=== PATIENT | female | born 1955 | race American Indian/Alaskan Native ===

== ENCOUNTER 2019-03-24 10:03 | Emergency (ER) | payer MEDICARE ==
[2019-03-24 10:32] VITALS: BP 166/80
[2019-03-24] MEDS ORDERED: CLEOCIN 600 MG/50 mL 600 MG/50 ML BAG IV ONE (10:59)
[2019-03-24] MEDS ORDERED: TORADOL IV ONE (10:59)
[2019-03-24] MEDS ORDERED: XYLOCAINE 1%/ EPI 1:100,000 INFILTRATI NR (11:00)
--- NOTE | 2019-03-24 12:18 | Emergency Department Report ---
- General Chief complaint: Skin/Abscess/Foreign Body Stated complaint: R ARM BITE/PAIN Time Seen by Provider: 03/24/19 10:54 Source: patient Mode of arrival: Wheelchair Limitations: No Limitations - History of Present Illness Initial comments: Patient is a 64-year-old female with no smoking past medical history who is presenting with swelling and redness to the right medial elbow. Patient states that she believes she may have been bitten by something because she has developed swelling in this area. Patient states is been present for the past 3 days and progressively worsening. There was some mild drainage today. Patient has pain that is 6 out of 10 in severity and is aching and throbbing. Patient denies any fevers chills nausea vomiting diarrhea at this time. - Related Data Home Medications Medication Instructions Recorded Confirmed Last Taken Allopurinol 300 mg PO DAILY 10/12/18 10/12/18 1 Day Ago ~10/11/18 Aspirin EC [Aspirin Enteric Coated 81 mg PO DAILY 10/12/18 10/12/18 1 Day Ago TAB] ~10/11/18 Banophen 25 mg PO BID PRN 10/12/18 10/12/18 1 Day Ago ~10/11/18 Chlorthalidone 12.5 mg PO QDAY 10/12/18 10/12/18 1 Day Ago ~10/11/18 Colchicine 0.6 mg PO BID 10/12/18 10/12/18 1 Day Ago ~10/11/18 Gabapentin [Neurontin] 300 mg PO Q8HR 10/12/18 10/12/18 1 Day Ago ~10/11/18 Lisinopril [Zestril TAB] 40 mg PO DAILY 10/12/18 1 Day Ago ~10/11/18 sulfaSALAzine [Azulfidine] 500 mg PO BID 10/12/18 10/12/18 1 Day Ago ~10/11/18 Previous Rx's Medication Instructions Recorded Last Taken Type hydroCHLOROthiazide [HCTZ] 12.5 mg PO QDAY #30 capsule 03/24/16 04/21/16 Rx traMADol [Ultram 50 MG tab] 50 mg PO Q6HR PRN #20 tablet 04/04/16 04/21/16 Rx Polyethylene Glycol 3350 [Miralax 17 gm PO QDAY #30 packet 04/21/16 Unknown Rx 3350] Clindamycin [Clindamycin CAP] 300 mg PO Q8H #21 cap 03/24/19 Unknown Rx HYDROcodone/APAP 5-325 [[place] 1 each PO Q6HR PRN #14 tablet 03/24/19 Unknown Rx 5/325] Ketorolac [Toradol] 10 mg PO Q6H PRN #12 tablet 03/24/19 Unknown Rx Allergies Allergy/AdvReac Type Severity Reaction Status Date / Time Penicillins Allergy Swelling Verified 01/28/16 18:41 Abscess Boil HPI - HPI Chief Complaint: Skin/Abscess/Foreign Body Stated Complaint: R ARM BITE/PAIN Time Seen by Provider: 03/24/19 10:54 Home Medications: Home Medications Medication Instructions Recorded Confirmed Last Taken Allopurinol 300 mg PO DAILY 10/12/18 10/12/18 1 Day Ago ~10/11/18 Aspirin EC [Aspirin Enteric Coated 81 mg PO DAILY 10/12/18 10/12/18 1 Day Ago TAB] ~10/11/18 Banophen 25 mg PO BID PRN 10/12/18 10/12/18 1 Day Ago ~10/11/18 Chlorthalidone 12.5 mg PO QDAY 10/12/18 10/12/18 1 Day Ago ~10/11/18 Colchicine 0.6 mg PO BID 10/12/18 10/12/18 1 Day Ago ~10/11/18 Gabapentin [Neurontin] 300 mg PO Q8HR 10/12/18 10/12/18 1 Day Ago ~10/11/18 Lisinopril [Zestril TAB] 40 mg PO DAILY 10/12/18 1 Day Ago ~10/11/18 sulfaSALAzine [Azulfidine] 500 mg PO BID 10/12/18 10/12/18 1 Day Ago ~10/11/18 Previous Rx's Medication Instructions Recorded Last Taken Type hydroCHLOROthiazide [HCTZ] 12.5 mg PO QDAY #30 capsule 03/24/16 04/21/16 Rx traMADol [Ultram 50 MG tab] 50 mg PO Q6HR PRN #20 tablet 04/04/16 04/21/16 Rx Polyethylene Glycol 3350 [Miralax 17 gm PO QDAY #30 packet 04/21/16 Unknown Rx 3350] Clindamycin [Clindamycin CAP] 300 mg PO Q8H #21 cap 03/24/19 Unknown Rx HYDROcodone/APAP 5-325 [[place] 1 each PO Q6HR PRN #14 tablet 03/24/19 Unknown Rx 5/325] Ketorolac [Toradol] 10 mg PO Q6H PRN #12 tablet 03/24/19 Unknown Rx Allergies/Adverse Reactions: Allergies Allergy/AdvReac Type Severity Reaction Status Date / Time Penicillins Allergy Swelling Verified 01/28/16 18:41 ED Review of Systems ROS: Stated complaint: R ARM BITE/PAIN Other details as noted in HPI Comment: All other systems reviewed and negative ED Past Medical Hx - Past Medical History Previous Medical History?: Yes Hx Hypertension: Yes Hx CVA: Yes (no residual) Hx Heart Attack/AMI: No Hx Congestive Heart Failure: No Hx Diabetes: No Hx Deep Vein Thrombosis: No Hx Pulmonary Embolism: No Hx Arthritis: Yes (RA) Hx Seizures: No Hx Asthma: Yes Hx COPD: No Hx Tuberculosis: No Hx Dementia: No Hx HIV: No Additional medical history: staph right foot on and off; diverticulitis - Surgical History Past Surgical History?: Yes Hx Coronary Stent: No Hx Open Heart Surgery: No Hx Pacemaker: No Hx Internal Defibrillator: No Hx Cholecystectomy: Yes Hx Appendectomy: No Hx Breast Surgery: No Additional Surgical History: sigmoid colon resection with colostomy - Social History Smoking Status: Former Smoker Substance Use Type: None - Medications Home Medications: Home Medications Medication Instructions Recorded Confirmed Last Taken Type hydroCHLOROthiazide [HCTZ] 12.5 mg PO QDAY #30 capsule 03/24/16 04/21/16 04/21/16 Rx traMADol [Ultram 50 MG tab] 50 mg PO Q6HR PRN #20 tablet 04/04/16 04/21/16 04/21/16 Rx Polyethylene Glycol 3350 [Miralax 17 gm PO QDAY #30 packet 04/21/16 Unknown Rx 3350] Allopurinol 300 mg PO DAILY 10/12/18 10/12/18 1 Day Ago History ~10/11/18 Aspirin EC [Aspirin Enteric Coated 81 mg PO DAILY 10/12/18 10/12/18 1 Day Ago History TAB] ~10/11/18 Banophen 25 mg PO BID PRN 10/12/18 10/12/18 1 Day Ago History ~10/11/18 Chlorthalidone 12.5 mg PO QDAY 10/12/18 10/12/18 1 Day Ago History ~10/11/18 Colchicine 0.6 mg PO BID 10/12/18 10/12/18 1 Day Ago History ~10/11/18 Gabapentin [Neurontin] 300 mg PO Q8HR 10/12/18 10/12/18 1 Day Ago History ~10/11/18 Lisinopril [Zestril TAB] 40 mg PO DAILY 10/12/18 1 Day Ago History ~10/11/18 sulfaSALAzine [Azulfidine] 500 mg PO BID 10/12/18 10/12/18 1 Day Ago History ~10/11/18 Clindamycin [Clindamycin CAP] 300 mg PO Q8H #21 cap 03/24/19 Unknown Rx HYDROcodone/APAP 5-325 [[place] 1 each PO Q6HR PRN #14 tablet 03/24/19 Unknown Rx 5/325] Ketorolac [Toradol] 10 mg PO Q6H PRN #12 tablet 03/24/19 Unknown Rx ED Physical Exam - General Limitations: No Limitations General appearance: alert, in no apparent distress - Head Head exam: Present: atraumatic, normocephalic - Eye Eye exam: Present: normal appearance - ENT ENT exam: Present: mucous membranes moist - Neck Neck exam: Present: normal inspection - Respiratory Respiratory exam: Present: normal lung sounds bilaterally. Absent: respiratory distress, wheezes, rales, rhonchi - Cardiovascular Cardiovascular Exam: Present: regular rate, normal rhythm. Absent: systolic murmur, diastolic murmur, rubs, gallop - GI/Abdominal GI/Abdominal exam: Present: soft, normal bowel sounds. Absent: distended, tenderness, guarding, rebound - Extremities Exam Extremities exam: Present: normal inspection - Back Exam Back exam: Present: normal inspection - Neurological Exam Neurological exam: Present: alert, oriented X3 - Psychiatric Psychiatric exam: Present: normal affect, normal mood - Skin Skin exam: Present: warm, dry, intact, normal color. Absent: rash - Expanded Skin Exam Expanded Type of lesion: Present: abscess 1 - At the distal medial humerus region just proximal to the elbow there is a softball sized area of induration and warmth with central fluctuance. There is very minimal drainage at this time. ED Course Vital Signs 03/24/19 10:28 Temperature 98.2 F Pulse Rate 77 Respiratory 18 Rate Blood Pressure 166/80 O2 Sat by Pulse 99 Oximetry - I & D Right Medial Elbow Type of Procedure: Complex Blade Size: 11 I & D Procedure: betadine prep, sterile drapes applied, sterile dressing applied, gauze wick placed Progress: Lidocaine with epinephrine was used to numb the area. Good anesthesia was achieved. 11 blade scalpel was used to make a cut. Cut was approximately 1 cm. There was moderate amount of purulent drainage expressed. The wound was probed with hemostats to break up loculations. The area was irrigated with normal saline the patient's abscess was packed. Patient tolerated procedure well. Critical care attestation.: If time is entered above; I have spent that time in minutes in the direct care of this critically ill patient, excluding procedure time. ED Disposition Clinical Impression: Abscess Cellulitis Qualifiers: Site of cellulitis: extremity Site of cellulitis of extremity: upper extremity Laterality: right Qualified Code(s): L03.113 - Cellulitis of right upper limb Disposition: -01 TO HOME OR SELFCARE Is pt being admited?: No Does the pt Need Aspirin: No Condition: Stable Instructions: Abscess (ED), Abscess Incision and Drainage (ED) Referrals: NITA TANG MD [Primary Care Provider] - 3-5 Days Time of Disposition: 12:18
== END 2019-03-24 12:45 | disposition home or self-care (01) ==
LOC: ED 10:03
DX: L02.413 Cutaneous abscess of right upper limb (principal); L03.113 Cellulitis of right upper limb; I10 Essential (primary) hypertension; M19.90 Unspecified osteoarthritis, unspecified site; J45.909 Unspecified asthma, uncomplicated; Z86.73 Personal history of transient ischemic attack (TIA), and cerebral infarction without residual deficits; Z90.49 Acquired absence of other specified parts of digestive tract; Z87.891 Personal history of nicotine dependence; Z88.0 Allergy status to penicillin; Z79.82 Long term (current) use of aspirin
CPT/HCPCS: 10061; 96365; 96375; 99282; J1885

== ENCOUNTER 2019-06-26 16:56 | Emergency (ER) | payer MEDICARE ==
[2019-06-26 17:06] VITALS: BP 178/87
[2019-06-26 17:23] LABS: Basophils # (Auto) 0.1 K/mm3 (0.0-0.1); Basophils % (Auto) 0.8 % (0.0-1.8); Eosinophils # (Auto) 0.1 K/mm3 (0.0-0.4); Eosinophils % (Auto) 0.7 % (0.0-4.3); Hematocrit 45.1 % (30.3-42.9); Hemoglobin 15.4 gm/dl (10.1-14.3); Lymphocytes # (Auto) 1.8 K/mm3 (1.2-5.4); Lymphocytes % (Auto) 19.2 % (13.4-35.0); Mean Corpuscular HGB Conc 34 % (30-34); Mean Corpuscular Volume 93 fl (79-97); Monocytes # (Auto) 0.5 K/mm3 (0.0-0.8); Monocytes % (Auto) 5.4 % (0.0-7.3); Platelet Count 179 K/mm3 (140-440); Red Blood Count 4.85 M/mm3 (3.65-5.03); Red Cell Distribution Width 14.5 % (13.2-15.2)
[2019-06-26 17:37] LABS: Alanine Aminotransferase 15 units/L (7-56); Albumin 4.3 g/dL (3.9-5); BUN/Creatinine Ratio 20; Blood Urea Nitrogen 12 mg/dL (7-17); Calcium 9.6 mg/dL (8.4-10.2); Hemolysis Index 6
[2019-06-26 17:40] LABS: Bilirubin,Urine NEG (Negative); Blood,Urine LG (Negative); Color,Urine Red (Yellow); Urobilinogen,Urine < 2.0 mg/dL (<2.0)
[2019-06-26 17:42] LABS: Protein,Urine >500 mg/dL (Negative); RBC,Urine > 182.0 /HPF (0.0-6.0); WBC,Urine > 182.0 /HPF (0.0-6.0)
[2019-06-26] MEDS ORDERED: ROCEPHIN/NS 1 GM/50 ML 1 GM/50 ML BAG IV ONE (19:22)
[2019-06-26] MEDS ORDERED: TORADOL IV ONE (19:22)
[2019-06-26] MEDS ORDERED: NACL 0.9% 1000 ML 1,000 ML IV ONE (19:22)
[2019-06-26] MEDS ORDERED: ZOFRAN IV ONE (19:22)
--- NOTE | 2019-06-26 20:24 | Cat Scan Report ---
CT ABDOMEN AND PELVIS WITHOUT CONTRAST INDICATION: UTI. Gross hematuria with bilateral flank pain. COMPARISON: CT of the abdomen and pelvis with contrast from 03/31/2016. TECHNIQUE: Axial, coronal and sagittal CT imaging of the abdomen and pelvis was performed without co ntrast. Lack of intravenous contrast limits evaluation of the vascular and solid organs. All CT sca ns at this location are performed using CT dose reduction for ALARA by means of automated exposure co ntrol. FINDINGS: LOWER CHEST: Mild dependent atelectasis is seen bilaterally. No additional significant abnormality. LIVER: No significant abnormality. BILIARY: Prior cholecystectomy. No significant abnormality. PANCREAS: No significant abnormality. SPLEEN: No significant abnormality. ADRENALS: No significant abnormality. KIDNEYS AND URETERS: No significant abnormality. GI TRACT: No significant abnormality of the stomach, small bowel or colon. Unremarkable appendix. Figueroa rgical changes are seen along the sigmoid colon. PERITONEUM: No free fluid. No free air. No fluid collection. LYMPH NODES: No significant adenopathy. VASCULATURE: The aorta is normal in caliber. There is mild bilateral iliac atherosclerosis. URINARY BLADDER: No significant abnormality. REPRODUCTIVE ORGANS: The uterus is larger than expected for a patient of this age and likely contains multiple fibroids. ADDITIONAL FINDINGS: Rectus diastasis is seen with a large midline ventral hernia containing unremark able appearing small bowel and colonic loops. Additional smaller ventral hernias are seen containing fat. No associated inflammation is identified. SKELETAL SYSTEM: No acute abnormality. There are degenerative changes of the spine and pelvis. IMPRESSION: 1. No acute abnormality of the abdomen or pelvis. 2. Additional findings as above. Signer Name: Cali Swift MD Signed: 06/26/2019 8:20 PM Workstation Name: [id number]
--- NOTE | 2019-06-26 21:25 | Emergency Department Report ---
ED Abdominal Pain HPI - General Chief Complaint: Abdominal Pain Stated Complaint: BURNING ON URINATION/ABD PAIN Time Seen by Provider: 06/26/19 19:12 Source: patient Mode of arrival: Wheelchair Limitations: Physical Limitation - History of Present Illness Initial Comments: Patient 64-year-old -[place] female who presents for lower abdominal pain 4 days exacerbated by 40 there is no hematuria denies history of renal stones does endorse history of recurrent UTI there is no fevers no chills no nausea vomiting pain is 6/10 cramping relieved by nothing. MD Complaint: abdominal pain Onset/Timin -: days(s) Location: suprapubic Radiation: suprapubic Migration to: suprapubic Severity: moderate Severity scale (0 -10): 8 Quality: cramping, aching Consistency: constant Improves With: nothing Worsens With: other (voiding ) Associated Symptoms: dysuria. denies: nausea, vomiting, diarrhea, chills, hematuria - Related Data Home Medications Medication Instructions Recorded Confirmed Last Taken Allopurinol 300 mg PO DAILY 10/12/18 10/12/18 1 Day Ago ~10/11/18 Aspirin EC [Halfprin EC] 81 mg PO DAILY 10/12/18 10/12/18 1 Day Ago ~10/11/18 Banophen 25 mg PO BID PRN 10/12/18 10/12/18 1 Day Ago ~10/11/18 Chlorthalidone 12.5 mg PO QDAY 10/12/18 10/12/18 1 Day Ago ~10/11/18 Colchicine 0.6 mg PO BID 10/12/18 10/12/18 1 Day Ago ~10/11/18 Gabapentin [Neurontin] 300 mg PO Q8HR 10/12/18 10/12/18 1 Day Ago ~10/11/18 Lisinopril [Zestril TAB] 40 mg PO DAILY 10/12/18 1 Day Ago ~10/11/18 sulfaSALAzine [Azulfidine] 500 mg PO BID 10/12/18 10/12/18 1 Day Ago ~10/11/18 Previous Rx's Medication Instructions Recorded Last Taken Type hydroCHLOROthiazide [HCTZ] 12.5 mg PO QDAY #30 capsule 03/24/16 04/21/16 Rx traMADol [Ultram 50 MG tab] 50 mg PO Q6HR PRN #20 tablet 04/04/16 04/21/16 Rx Polyethylene Glycol 3350 [Miralax 17 gm PO QDAY #30 packet 04/21/16 Unknown Rx 3350] Clindamycin [Clindamycin CAP] 300 mg PO Q8H #21 cap 03/24/19 Unknown Rx HYDROcodone/APAP 5-325 [[place] 1 each PO Q6HR PRN #14 tablet 03/24/19 Unknown Rx 5/325] Ketorolac [Toradol] 10 mg PO Q6H PRN #12 tablet 03/24/19 Unknown Rx Acetaminophen [Acetaminophen TAB] 1,000 mg PO Q6HR PRN #30 tablet 06/26/19 Un known Rx Fluconazole [Diflucan TAB] 150 mg PO ONCE #1 tablet 06/26/19 Unknown Rx Nitrofurantoin [place]/M-Cryst 100 mg PO BID 7 Days #14 capsule 06/26/19 Unknown Rx [Macrobid CAP] Allergies Allergy/AdvReac Type Severity Reaction Status Date / Time Penicillins Allergy Swelling Verified 06/26/19 16:58 ED Review of Systems ROS: Stated complaint: BURNING ON URINATION/ABD PAIN Other details as noted in HPI Constitutional: denies: chills, fever Eyes: denies: eye pain, eye discharge, vision change ENT: denies: ear pain, throat pain Respiratory: denies: cough, shortness of breath, wheezing Cardiovascular: as per HPI Endocrine: no symptoms reported Gastrointestinal: abdominal pain. denies: nausea, vomiting, diarrhea, constipation Genitourinary: urgency, dysuria, frequency. denies: hematuria, discharge Musculoskeletal: denies: back pain, joint swelling, arthralgia Skin: denies: rash, lesions Neurological: denies: headache, weakness, paresthesias Psychiatric: denies: anxiety, depression Hematological/Lymphatic: denies: easy bleeding, easy bruising ED Past Medical Hx - Past Medical History Hx Hypertension: Yes Hx CVA: Yes (no residual) Hx Heart Attack/AMI: No Hx Congestive Heart Failure: No Hx Diabetes: No Hx Deep Vein Thrombosis: No Hx Pulmonary Embolism: No Hx Arthritis: Yes (RA) Hx Seizures: No Hx Asthma: Yes Hx COPD: No Hx Tuberculosis: No Hx Dementia: No Hx HIV: No Additional medical history: staph right foot on and off; diverticulitis - Surgical History Hx Coronary Stent: No Hx Open Heart Surgery: No Hx Pacemaker: No Hx Internal Defibrillator: No Hx Cholecystectomy: Yes Hx Appendectomy: No Hx Breast Surgery: No Additional Surgical History: sigmoid colon resection with colostomy - Social History Smoking Status: Never Smoker Substance Use Type: None - Medications Home Medications: Home Medications Medication Instructions Recorded Confirmed Last Taken Type hydroCHLOROthiazide [HCTZ] 12.5 mg PO QDAY #30 capsule 03/24/16 04/21/16 04/21/16 Rx traMADol [Ultram 50 MG tab] 50 mg PO Q6HR PRN #20 tablet 04/04/16 04/21/16 0 04/21/16 Rx Polyethylene Glycol 3350 [Miralax 17 gm PO QDAY #30 packet 04/21/16 Unknown Rx 3350] Allopurinol 300 mg PO DAILY 10/12/18 10/12/18 1 Day Ago History ~10/11/18 Aspirin EC [Halfprin EC] 81 mg PO DAILY 10/12/18 10/12/18 1 Day Ago History ~10/11/18 Banophen 25 mg PO BID PRN 10/12/18 10/12/18 1 Day Ago History ~10/11/18 Chlorthalidone 12.5 mg PO QDAY 10/12/18 10/12/18 1 Day Ago History ~10/11/18 Colchicine 0.6 mg PO BID 10/12/18 10/12/18 1 Day Ago History ~10/11/18 Gabapentin [Neurontin] 300 mg PO Q8HR 10/12/18 10/12/18 1 Day Ago History ~10/11/18 Lisinopril [Zestril TAB] 40 mg PO DAILY 10/12/18 1 Day Ago History ~10/11/18 sulfaSALAzine [Azulfidine] 500 mg PO BID 10/12/18 10/12/18 1 Day Ago History ~10/11/18 Clindamycin [Clindamycin CAP] 300 mg PO Q8H #21 cap 03/24/19 Unknown Rx HYDROcodone/APAP 5-325 [[place] 1 each PO Q6HR PRN #14 tablet 03/24/19 Unknown Rx 5/325] Ketorolac [Toradol] 10 mg PO Q6H PRN #12 tablet 03/24/19 Unknown Rx Acetaminophen [Acetaminophen TAB] 1,000 mg PO Q6HR PRN #30 tablet 06/26/19 Unknown Rx Fluconazole [Diflucan TAB] 150 mg PO ONCE #1 tablet 06/26/19 Unknown Rx Nitrofurantoin [place]/M-Cryst 100 mg PO BID 7 Days #14 capsule 06/26/19 Unknown Rx [Macrobid CAP] ED Physical Exam - General Limitations: Physical Limitation General appearance: alert, in no apparent distress - Head Head exam: Present: atraumatic, normocephalic - Eye Eye exam: Present: normal appearance, PERRL, EOMI Pupils: Present: normal accommodation - ENT ENT exam: Present: mucous membranes moist - Neck Neck exam: Present: normal inspection, full ROM, lymphadenopathy - Respiratory Respiratory exam: Present: normal lung sounds bilaterally. Absent: respiratory distress, wheezes, stridor, chest wall tenderness - Cardiovascular Cardiovascular Exam: Present: regular rate, normal rhythm, normal heart sounds. Absent: systolic murmur, diastolic murmur, rubs, gallop - GI/Abdominal GI/Abdominal exam: Present: soft, normal bowel sounds. Absent: distended, tenderness, bruit, hernia - Rectal Rectal exam: Present: deferred - Extremities Exam Extremities exam: Present: normal inspection, full ROM, normal capillary refill. Absent: tenderness - Back Exam Back exam: Present: normal inspection, full ROM. Absent: tenderness, CVA tenderness (R), CVA tenderness (L), muscle spasm, paraspinal tenderness, vertebral tenderness, rash noted - Neurological Exam Neurological exam: Present: alert, oriented X3, CN II-XII intact, normal gait, reflexes normal. Absent: motor sensory deficit - Psychiatric Psychiatric exam: Present: normal affect, normal mood - Skin Skin exam: Present: warm, dry, intact, normal color. Absent: rash ED Course Vital Signs 06/26/19 17:04 Temperature 98.4 F Pulse Rate 89 Respiratory 16 Rate Blood Pressure 178/87 [Left] O2 Sat by Pulse 96 Oximetry ED Medical Decision Making - Lab Data Result diagrams: 06/26/19 17:10 06/26/19 17:10 Lab Results 06/26/19 06/26/19 06/26/19 Range/Units 17:10 17:10 17:20 WBC 9.4 (4.5-11.0) K/mm3 RBC 4.85 (3.65-5.03) M/mm3 Hgb 15.4 H (10.1-14.3) gm/dl Hct 45.1 H (30.3-42.9) % MCV 93 (79-97) fl MCH 32 (28-32) pg MCHC 34 (30-34) % RDW 14.5 (13.2-15.2) % Plt Count 179 (140-440) K/mm3 Lymph % (Auto) 19.2 (13.4-35.0) % [place] % (Auto) 5.4 (0.0-7.3) % Eos % (Auto) 0.7 (0.0-4.3) % Baso % (Auto) 0.8 (0.0-1.8) % Lymph # 1.8 (1.2-5.4) K/mm3 [place] # 0.5 (0.0-0.8) K/mm3 Eos # 0.1 (0.0-0.4) K/mm3 Baso # 0.1 (0.0-0.1) K/mm3 Seg Neutrophils % 73.9 H (40.0-70.0) % Seg Neutrophils # 7.0 (1.8-7.7) K/mm3 Sodium 145 (137-145) mmol/L Potassium 3.7 (3.6-5.0) mmol/L Chloride 101.5 (98-107) mmol/L Carbon Dioxide 30 (22-30) mmol/L Anion Gap 17 mmol/L BUN 12 (7-17) mg/dL Creatinine 0.6 L (0.7-1.2) mg/dL Estimated GFR > 60 ml/min BUN/Creatinine Ratio 20 % Glucose 98 (65-100) mg/dL Calcium 9.6 (8.4-10.2) mg/dL Total Bilirubin 0.40 (0.1-1.2) mg/dL AST 15 (5-40) units/L ALT 15 (7-56) units/L Alkaline Phosphatase 53 (35-129) units/L Total Protein 7.9 (6.3-8.2) g/dL Albumin 4.3 (3.9-5) g/dL Albumin/Globulin Ratio 1.2 % Urine Color Red (Yellow) Urine Turbidity Cloudy (Clear) Urine pH 6.0 (5.0-7.0) Ur Specific [place] 1.014 (1.003-1.030) Urine Protein >500 (Negative) mg/dL Urine Glucose (UA) Neg (Negative) mg/dL Urine Ketones Neg (Negative) mg/dL Urine Blood Lg (Negative) Urine Nitrite Neg (Negative) Urine Bilirubin Neg (Negative) Urine Urobilinogen < 2.0 (<2.0) mg/dL Ur Leukocyte Esterase Mod (Negative) Urine WBC (Auto) > 182.0 H (0.0-6.0) /HPF Urine RBC (Auto) > 182.0 (0.0-6.0) /HPF Urine WBC Clumps 3+ /HPF Urine Yeast (Budding) 3+ /HPF - Radiology Data Radiology results: report reviewed, image reviewed Ordering Physician: PEPE EARL NP Date of Service: 06/26/19 Procedure(s): CT abdomen pelvis wo con Accession Number(s): [id number] cc: PEPE EARL NP CT ABDOMEN AND PELVIS WITHOUT CONTRAST INDICATION: UTI. Gross hematuria with bilateral flank pain. COMPARISON: CT of the abdomen and pelvis with contrast from 03/31/2016. TECHNIQUE: Axial, coronal and sagittal CT imaging of the abdomen and pelvis was performed without contrast. Lack of intravenous contrast limits evaluation of the vascular and solid organs. All CT scans at this location are performed using CT dose reduction for ALARA by means of automated exposure control. FINDINGS: LOWER CHEST: Mild dependent atelectasis is seen bilaterally. No additional significant abnormality. LIVER: No significant abnormality. BILIARY: Prior cholecystectomy. No significant abnormality. PANCREAS: No significant abnormality. SPLEEN: No significant abnormality. ADRENALS: No significant abnormality. KIDNEYS AND URETERS: No significant abnormality. GI TRACT: No significant abnormality of the stomach, small bowel or colon. Unremarkable appendix. Surgical changes are seen along the sigmoid colon. PERITONEUM: No free fluid. No free air. No fluid collection. LYMPH NODES: No significant adenopathy. VASCULATURE: The aorta is normal in caliber. There is mild bilateral iliac atherosclerosis. URINARY BLADDER: No significant abnormality. REPRODUCTIVE ORGANS: The uterus is larger than expected for a patient of this age and likely contains multiple fibroids. ADDITIONAL FINDINGS: Rectus diastasis is seen with a large midline ventral hernia containing unremarkable appearing small bowel and colonic loops. Additional smaller ventral hernias are seen containing fat. No associated inflammation is identified. SKELETAL SYSTEM: No acute abnormality. There are degenerative changes of the spine and pelvis. IMPRESSION: 1. No acute abnormality of the abdomen or pelvis. 2. Additional findings as above. Signer Name: Cali Swift MD Signed: 06/26/2019 8:20 PM Workstation Name: [id number] Transcribed By: [place] Dictated By: Cali Swift MD Electronically Authenticated By: Cali Swift MD Signed Date/Time: 06/26/192019 DD/ 13 TD/TT: - Medical Decision Making CT Abd Pelvis, Fibroids, Ventral Hernia, Dx UTI, symptoms improved with medications given in ed plan follow up pcp in 2-3 days dc'd to home with rx for macrobid tylenol, conintue to hydrate as directed, return to ed if symptoms worsen. Critical care attestation.: If time is entered above; I have spent that time in minutes in the direct care o f this critically ill patient, excluding procedure time. ED Disposition Clinical Impression: UTI (urinary tract infection) Qualifiers: Urinary tract infection type: acute cystitis Hematuria presence: without hematuria Qualified Code(s): N30.00 - Acute cystitis without hematuria Disposition: DC-01 TO HOME OR SELFCARE Is pt being admited?: No Does the pt Need Aspirin: No Condition: Stable Instructions: Abdominal Pain (ED), Dysuria (ED), Urinary Tract Infection in Women (ED), Uterine Fibroids (ED), Ventral Hernia (ED) Prescriptions: Acetaminophen [Acetaminophen TAB] 1,000 mg PO Q6HR PRN #30 tablet PRN Reason: pain Fluconazole [Diflucan TAB] 150 mg PO ONCE #1 tablet Nitrofurantoin [place]/M-Cryst [Macrobid CAP] 100 mg PO BID 7 Days #14 capsule Referrals: NITA TANG MD [Referring] - 3-5 Days Forms: Work/School Release Form(ED) Time of Disposition: 21:34
== END 2019-06-26 22:10 | disposition home or self-care (01) ==
LOC: ED 16:56
DX: N39.0 Urinary tract infection, site not specified (principal); I10 Essential (primary) hypertension; M19.90 Unspecified osteoarthritis, unspecified site; J45.909 Unspecified asthma, uncomplicated; Z86.73 Personal history of transient ischemic attack (TIA), and cerebral infarction without residual deficits; Z90.49 Acquired absence of other specified parts of digestive tract; Z79.899 Other long term (current) drug therapy; Z79.82 Long term (current) use of aspirin; Z88.0 Allergy status to penicillin
CPT/HCPCS: 36415; 74176; 80053; 81001; 85025; 96365; 96375; 99284; J0696; J1885; J2405; J7030

== ENCOUNTER 2019-08-12 10:13 | Emergency (ER) | payer MEDICARE ==
[2019-08-12] MEDS ORDERED: SODIUM CHLORIDE 0.9% 500 ML 500 ML IV ONE (10:36)
[2019-08-12] MEDS ORDERED: ONDANSETRON 4 MG/2 ML INJ IV ONE (10:36)
[2019-08-12] MEDS ORDERED: MORPHINE 4 MG/1 ML INJ IV ONE (10:36)
--- NOTE | 2019-08-12 10:40 | Emergency Department Report ---
ED Abdominal Pain HPI - General Chief Complaint: Abdominal Pain Stated Complaint: STOMACH PAIN Time Seen by Provider: 08/12/19 10:36 Source: patient Mode of arrival: Ambulatory Limitations: No Limitations - History of Present Illness Initial Comments: Mrs. Rodrigues is a very pleasant 64-year-old female with history of rheumatoid arthritis, diverticulitis status post colon resection in ostomy reversal, severe obesity, hypertension who presents with 5 days of abdominal pain and bloating. Gradual onset of pain. 5 out of 10 cramping nondescript pain. She's had intact appetite. Denies fever. Denies vomiting. Denies diarrhea. Last bowel movement occurred on yesterday. Additional surgeries intra-abdominal surgeries include cholecystectomy PCP is Dr. Tj Nath MD Complaint: abdominal pain -: Gradual, days(s) (5) Location: diffuse Radiation: none Severity: moderate Severity scale (0 -10): 5 Quality: cramping, dull Consistency: constant Improves With: nothing Worsens With: nothing Associated Symptoms: denies other symptoms - Related Data Home Medications Medication Instructions Recorded Confirmed Last Taken Allopurinol 300 mg PO DAILY 10/12/18 10/12/18 1 Day Ago ~10/11/18 Aspirin EC [Halfprin EC] 81 mg PO DAILY 10/12/18 10/12/18 1 Day Ago ~10/11/18 Banophen 25 mg PO BID PRN 10/12/18 10/12/18 1 Day Ago ~10/11/18 Chlorthalidone 12.5 mg PO QDAY 10/12/18 10/12/18 1 Day Ago ~10/11/18 Colchicine 0.6 mg PO BID 10/12/18 10/12/18 1 Day Ago ~10/11/18 Gabapentin [Neurontin] 300 mg PO Q8HR 10/12/18 10/12/18 1 Day Ago ~10/11/18 Lisinopril [Zestril TAB] 40 mg PO DAILY 10/12/18 1 Day Ago ~10/11/18 sulfaSALAzine [Azulfidine] 500 mg PO BID 10/12/18 10/12/18 1 Day Ago ~10/11/18 Previous Rx's Medication Instructions Recorded Last Taken Type hydroCHLOROthiazide [HCTZ] 12.5 mg PO QDAY #30 capsule 03/24/16 04/21/16 Rx traMADol [Ultram 50 MG tab] 50 mg PO Q6HR PRN #20 tablet 04/04/16 04/21/16 Rx Polyethylene Glycol 3350 [Miralax 17 gm PO QDAY #30 packet 04/21/16 Unknown Rx 3350] Clindamycin [Clindamycin CAP] 300 mg PO Q8H #21 cap 03/24/19 Unknown Rx HYDROcodone/APAP 5-325 [[place] 1 each PO Q6HR PRN #14 tablet 03/24/19 Unknown Rx 5/325] Ketorolac [Toradol] 10 mg PO Q6H PRN #12 tablet 03/24/19 Unknown Rx Acetaminophen [Acetaminophen TAB] 1,000 mg PO Q6HR PRN #30 tablet 06/26/19 Unknown Rx Fluconazole [Diflucan TAB] 150 mg PO ONCE #1 tablet 06/26/19 Unknown Rx Nitrofurantoin [place]/M-Cryst 100 mg PO BID 7 Days #14 capsule 06/26/19 Unknown Rx [Macrobid CAP] Allergies Allergy/AdvReac Type Severity Reaction Status Date / Time Penicillins Allergy Swelling Verified 08/12/19 10:19 ED Review of Systems ROS: Stated complaint: STOMACH PAIN Other details as noted in HPI Comment: All other systems reviewed and negative Constitutional: denies: fever, malaise Respiratory: denies: shortness of breath Cardiovascular: denies: chest pain Gastrointestinal: abdominal pain. denies: nausea, vomiting, diarrhea, constipation Skin: denies: rash, lesions Neurological: denies: headache ED Past Medical Hx - Past Medical History Previous Medical History?: Yes Hx Hypertension: Yes Hx CVA: Yes (no residual) Hx Heart Attack/AMI: No Hx Congestive Heart Failure: No Hx Diabetes: No Hx Deep Vein Thrombosis: No Hx Pulmonary Embolism: No Hx Arthritis: Yes (RA) Hx Seizures: No Hx Asthma: Yes Hx COPD: No Hx Tuberculosis: No Hx Dementia: No Hx HIV: No Additional medical history: staph right foot on and off; diverticulitis - Surgical History Past Surgical History?: Yes Hx Coronary Stent: No Hx Open Heart Surgery: No Hx Pacemaker: No Hx Internal Defibrillator: No Hx Cholecystectomy: Yes Hx Appendectomy: No Hx Breast Surgery: No Additional Surgical History: sigmoid colon resection with colostomy - Social History Smoking Status: Never Smoker Substance Use Type: None - Medications Home Medications: Home Medications Medication Instructions Recorded Confirmed Last Taken Type hydroCHLOROthiazide [HCTZ] 12.5 mg PO QDAY #30 capsule 03/24/16 04/21/16 04/21/16 Rx traMADol [Ultram 50 MG tab] 50 mg PO Q6HR PRN #20 tablet 04/04/16 04/21/16 04/21/16 Rx Polyethylene Glycol 3350 [Miralax 17 gm PO QDAY #30 packet 04/21/16 Unknown Rx 3350] Allopurinol 300 mg PO DAILY 10/12/18 10/12/18 1 Day Ago History ~10/11/18 Aspirin EC [Halfprin EC] 81 mg PO DAILY 10/12/18 10/12/18 1 Day Ago History ~10/11/18 Banophen 25 mg PO BID PRN 10/12/18 10/12/18 1 Day Ago History ~10/11/18 Chlorthalidone 12.5 mg PO QDAY 10/12/18 10/12/18 1 Day Ago History ~10/11/18 Colchicine 0.6 mg PO BID 10/12/18 10/12/18 1 Day Ago History ~10/11/18 Gabapentin [Neurontin] 300 mg PO Q8HR 10/12/18 10/12/18 1 Day Ago History ~10/11/18 Lisinopril [Zestril TAB] 40 mg PO DAILY 10/12/18 1 Day Ago History ~10/11/18 sulfaSALAzine [Azulfidine] 500 mg PO BID 10/12/18 10/12/18 1 Day Ago History ~10/11/18 Clindamycin [Clindamycin CAP] 300 mg PO Q8H #21 cap 03/24/19 Unknown Rx HYDROcodone/APAP 5-325 [[place] 1 each PO Q6HR PRN #14 tablet 03/24/19 Unknown Rx 5/325] Ketorolac [Toradol] 10 mg PO Q6H PRN #12 tablet 03/24/19 Unknown Rx Acetaminophen [Acetaminophen TAB] 1,000 mg PO Q6HR PRN #30 tablet 06/26/19 Unknown Rx Fluconazole [Diflucan TAB] 150 mg PO ONCE #1 tablet 06/26/19 Unknown Rx Nitrofurantoin [place]/M-Cryst 100 mg PO BID 7 Days #14 capsule 06/26/19 Unknown Rx [Macrobid CAP] ED Physical Exam - General Limitations: No Limitations General appearance: alert, in no apparent distress, other (pleasant smiling appears well jovial, sitting in personal wheelchair) - Head Head exam: Present: atraumatic, normocephalic - Eye Eye exam: Present: normal appearance - ENT ENT exam: Present: mucous membranes moist - Neck Neck exam: Present: normal inspection, full ROM - Respiratory Respiratory exam: Present: normal lung sounds bilaterally. Absent: respiratory distress, wheezes, rales, rhonchi - Cardiovascular Cardiovascular Exam: Present: regular rate, normal rhythm, normal heart sounds. Absent: systolic murmur, diastolic murmur, rubs, gallop - GI/Abdominal GI/Abdominal exam: Present: soft, normal bowel sounds. Absent: distended, t enderness, guarding, rebound - Extremities Exam Extremities exam: Present: pedal edema - Neurological Exam Neurological exam: Present: alert, oriented X3 - Psychiatric Psychiatric exam: Present: normal affect, normal mood - Skin Skin exam: Present: warm, dry, intact, normal color. Absent: rash ED Course Vital Signs 08/12/19 08/12/19 08/12/19 10:17 10:58 11:01 Temperature 98.4 F Pulse Rate 75 Respiratory 18 18 18 Rate Blood Pressure 150/81 [Left] O2 Sat by Pulse 99 Oximetry 08/12/19 14:09 Temperature Pulse Rate 55 L Respiratory 17 Rate Blood Pressure 140/74 [Left] O2 Sat by Pulse 97 Oximetry ED Medical Decision Making - Lab Data Result diagrams: 08/12/19 10:52 08/12/19 12:50 Laboratory Results - last 24 hr 08/12/19 08/12/19 10:52 12:50 WBC 6.4 RBC 4.70 Hgb 15.0 H Hct 43.1 H MCV 92 MCH 32 MCHC 35 H RDW 14.4 Plt Count 157 Lymph % (Auto) 20.6 [place] % (Auto) 5.6 Eos % (Auto) 1.1 Baso % (Auto) 1.0 Lymph # 1.3 [place] # 0.4 Eos # 0.1 Baso # 0.1 Seg Neutrophils % 71.7 H Seg Neutrophils # 4.6 Sodium 143 Potassium 3.8 Chloride 102.9 Carbon Dioxide 31 H Anion Gap 13 BUN 13 Creatinine 0.5 L Estimated GFR > 60 BUN/Creatinine Ratio 26 Glucose 93 Calcium 9.0 Total Bilirubin 0.30 Direct Bilirubin < 0.2 Indirect Bilirubin 0.1 AST 12 ALT 9 Alkaline Phosphatase 42 Total Protein 6.7 Albumin 3.9 Albumin/Globulin Ratio 1.4 Lipase 19 - Radiology Data Radiology results: report reviewed Radiology impression CT abdomen and pelvis with IV contrast: No acute inflammatory processes identified, complex ventral wall defect unchanged from prior exam no evidence for bowel obstruction or focal inflammation - Medical Decision Making Mrs. Rodrigues presents with 5 days of abdominal pain without diarrhea or vomiting or constipation. No fever. She has intact appetite. Due to several complicated intra-abdominal surgeries, she is at risk for mild ileus and dyspepsia. I recommended clear liquid diet. She is currently pain-free after small dose of analgesic provided in the emergency department. No indication of diverticulitis or acute severe intra-abdominal process. Critical care attestation.: If time is entered above; I have spent that time in minutes in the direct care of this critically ill patient, excluding procedure time. ED Disposition Clinical Impression: Abdominal pain Disposition: DC-01 TO HOME OR SELFCARE Is pt being admited?: No Does the pt Need Aspirin: No Condition: Stable Instructions: Abdominal Pain (ED) Referrals: PRIMARY CARE, [Primary Care Provider] - 3-5 Days
[2019-08-12 11:09] LABS: Basophils # (Auto) 0.1 K/mm3 (0.0-0.1); Eosinophils # (Auto) 0.1 K/mm3 (0.0-0.4); Eosinophils % (Auto) 1.1 % (0.0-4.3); Hematocrit 43.1 % (30.3-42.9); Lymphocytes # (Auto) 1.3 K/mm3 (1.2-5.4); Lymphocytes % (Auto) 20.6 % (13.4-35.0); Mean Corpuscular HGB Conc 35 % (30-34); Mean Corpuscular Volume 92 fl (79-97); Monocytes # (Auto) 0.4 K/mm3 (0.0-0.8); Monocytes % (Auto) 5.6 % (0.0-7.3); Platelet Count 157 K/mm3 (140-440); Red Cell Distribution Width 14.4 % (13.2-15.2)
[2019-08-12 14:01] LABS: Alanine Aminotransferase 9 units/L (7-56); Albumin 3.9 g/dL (3.9-5); BUN/Creatinine Ratio 26; Blood Urea Nitrogen 13 mg/dL (7-17); Hemolysis Index 4
[2019-08-12 14:03] LABS: Bilirubin,Direct < 0.2 mg/dL (0-0.2)
[2019-08-12 14:10] VITALS: BP 140/74
--- NOTE | 2019-08-12 15:09 | Cat Scan Report ---
CT ABDOMEN AND PELVIS WITH CONTRAST HISTORY: MAIN: Abdominal Pain bloating history of diverticulitis 100 ml OMINIPAQUE 300 COMPARISON: 06/26/2019 TECHNIQUE: Axial CT images were obtained through the abdomen and pelvis after 100 cc of Omnipaque 300 intravenously. Sagittal and coronal reformatted images. All CT scans at this location are performed using CT dose reduction for ALARA by means of automated exposure control. FINDINGS: CT ABDOMEN: Lung Bases: Clear. Liver: No significant abnormality. Biliary: Cholecystectomy. No biliary dilatation. Spleen: No significant abnormality. Unenlarged. Pancreas: No significant abnormality. Adrenals: No significant abnormality. Kidneys: No significant abnormality. Lymphatics: No lymphadenopathy. Vasculature: No significant abnormality. Bowel/Peritoneum: No evidence for bowel obstruction or focal inflammation. Rather large ventral wall defect containing segments of small bowel and large bowel is identified and not significantly changed . The appendix is not confidently identified, correlate with surgical history. CT PELVIS: : The uterus is mildly enlarged and contains multiple small fibroids. The adnexa are unremarkable. The bladder is empty. Osseous Structures: Mild to moderate thoracolumbar spondylosis is identified. Additional Findings: None IMPRESSION: No acute inflammatory process is identified. Complex ventral wall defect containing segments of small bowel and large bowel, unchanged. No evidenc e for bowel obstruction or focal inflammation. Uterine fibroid disease. Signer Name: Vipin Perry Jr, MD Signed: 08/12/2019 3:05 PM Workstation Name: [id number]
== END 2019-08-12 15:53 | disposition home or self-care (01) ==
LOC: ED 10:13
DX: R10.84 Generalized abdominal pain (principal); M06.9 Rheumatoid arthritis, unspecified; E66.9 Obesity, unspecified; Z68.42 Body mass index [BMI] 45.0-49.9, adult; I10 Essential (primary) hypertension; J45.909 Unspecified asthma, uncomplicated; Z86.73 Personal history of transient ischemic attack (TIA), and cerebral infarction without residual deficits; Z90.49 Acquired absence of other specified parts of digestive tract; Z79.82 Long term (current) use of aspirin; Z79.899 Other long term (current) drug therapy; Z88.0 Allergy status to penicillin; Z93.3 Colostomy status
CPT/HCPCS: 36415; 74177; 80048; 80076; 83690; 85025; 96374; 96375; 99284; J2270; J2405; J7040; Q9967

== ENCOUNTER 2019-10-14 19:33 | Emergency (ER) | payer MEDICARE ==
--- NOTE | 2019-10-14 21:22 | Event Note ---
ED Screening Note Date of service: 10/14/19 Time: 21:20 ED Screening Note: presents with redness and swelling x 4 days to the back This initial assessment/diagnostic orders/clinical plan/treatment(s) is/are subject to change based on patients health status, clinical progression and re-assessment by fellow clinical providers in the ED. Further treatment and workup at subsequent clinical providers discretion. Patient/guardian urged not to elope from the ED as their condition may be serious if not clinically assessed and managed. Initial orders include: I&D acc eval
[2019-10-14] MEDS ORDERED: HYDROcodone/ACETAMINOPHEN 5-325 MG TAB PO ONE (23:23)
--- NOTE | 2019-10-14 23:29 | Emergency Department Report ---
HPI - General Chief Complaint: Skin/Abscess/Foreign Body Time Seen by Provider: 10/14/19 23:11 - HPI HPI: Room 25 The patient is a 64-year-old female presenting with a chief complaint of back mass. The patient states she's had a "abscess" on her back for approximate 4 years however over the past 4-5 days became more painful and larger. Patient denies any drainage. Patient gives her pain a score 7/10 Location: [See above] Duration: [See above] Quality: [See above] Severity: [See above] Timing: [See above] Context: [See above] Modifying factors: [See above] Associated signs and symptoms: [see above] ED Past Medical Hx - Past Medical History Previous Medical History?: Yes Hx Hypertension: Yes Hx CVA: Yes (no residual) Hx Arthritis: Yes (RA) Hx Asthma: Yes Additional medical history: staph right foot on and off; diverticulitis - Surgical History Past Surgical History?: Yes Hx Cholecystectomy: Yes Additional Surgical History: sigmoid colon resection with colostomy and reversal - Family History Family history: no significant - Social History Smoking Status: Light Tobacco Smoker Substance Use Type: None (denies illicit drug use), Alcohol (rarely) - Medications Home Medications: Home Medications Medication Instructions Recorded Confirmed Last Taken Type hydroCHLOROthiazide [HCTZ] 12.5 mg PO QDAY #30 capsule 03/24/16 04/21/16 04/21/16 Rx traMADoL [Ultram 50 MG tab] 50 mg PO Q6HR PRN #20 tablet 04/04/16 04/21/16 04/21/16 Rx Polyethylene Glycol 3350 [Miralax 17 gm PO QDAY #30 packet 04/21/16 Unknown Rx 3350] Allopurinol 300 mg PO DAILY 10/12/18 10/12/18 1 Day Ago History ~10/11/18 Aspirin EC [Halfprin EC] 81 mg PO DAILY 10/12/18 10/12/18 1 Day Ago History ~10/11/18 Banophen 25 mg PO BID PRN 10/12/18 10/12/18 1 Day Ago History ~10/11/18 Chlorthalidone 12.5 mg PO QDAY 10/12/18 10/12/18 1 Day Ago History ~10/11/18 Colchicine 0.6 mg PO BID 10/12/18 10/12/18 1 Day Ago History ~10/11/18 Gabapentin [Neurontin] 300 mg PO Q8HR 10/12/18 10/12/18 1 Day Ago History ~10/11/18 Lisinopril [Zestril TAB] 40 mg PO DAILY 10/12/18 1 Day Ago History ~10/11/18 sulfaSALAzine [Azulfidine] 500 mg PO BID 10/12/18 10/12/18 1 Day Ago History ~10/11/18 Clindamycin [Clindamycin CAP] 300 mg PO Q8H #21 cap 03/24/19 Unknown Rx HYDROcodone/APAP 5-325 [[place] 1 each PO Q6HR PRN #14 tablet 03/24/19 Unknown Rx 5/325] Ketorolac [Toradol] 10 mg PO Q6H PRN #12 tablet 03/24/19 Unknown Rx Acetaminophen [Acetaminophen TAB] 1,000 mg PO Q6HR PRN #30 tablet 06/26/19 Unknown Rx Fluconazole [Diflucan TAB] 150 mg PO ONCE #1 tablet 06/26/19 Unknown Rx Nitrofurantoin [place]/M-Cryst 100 mg PO BID 7 Days #14 capsule 06/26/19 Unknown Rx [Macrobid CAP] Polyethylene Glycol 3350 [Miralax] 119 gm PO DAILY 7 Days #7 each 08/12/19 Unknown Rx HYDROcodone/APAP 5-325 [[place] 1 - 2 each PO Q6HR PRN #14 tablet 10/15/19 Unknown Rx 5/325] Ibuprofen [Motrin 800 MG tab] 800 mg PO Q8HR PRN #20 tablet 10/15/19 Unknown Rx Sulfamethoxazole/Trimethoprim 1 each PO BID #20 tablet 10/15/19 Unknown Rx [Bactrim DS TAB] levoFLOXacin [Levaquin] 750 mg PO QDAY #10 tablet 10/15/19 Unknown Rx ED Review of Systems ROS: Stated complaint: ABSCESS BACK Other details as noted in HPI Constitutional: denies: fever Eyes: denies: eye pain Skin: change in color Physical Exam - Physical Exam Vital Signs: Vital Signs 10/14/19 20:57 Temperature 98.6 F Pulse Rate 100 H Respiratory 16 Rate Blood Pressure 144/89 O2 Sat by Pulse 97 Oximetry Physical Exam: GENERAL: The patient is well-developed well-nourished female lying on stretcher not appearing to be in acute distress. [] HEENT: Normocephalic. Atraumatic. Extraocular motions are intact. Patient has moist mucous membranes. NECK: Supple. Trachea midline CHEST/LUNGS:There is no respiratory distress noted. SKIN: There is an approximately racquetball-sized region of induration over the left upper back with overlying erythema. The mass is tender to touch. There is no opening or drainage. There is no diaphoresis. NEURO: The patient is awake, alert, and oriented. The patient is cooperative. The patient has normal speech MUSCULOSKELETAL: T There is no evidence of acute injury. ED Course Vital Signs 10/14/19 20:57 Temperature 98.6 F Pulse Rate 100 H Respiratory 16 Rate Blood Pressure 144/89 O2 Sat by Pulse 97 Oximetry - I & D Left Back Type of Procedure: Simple Site: left upper back Blade Size: 11 I & D Procedure: betadine prep, sterile dressing applied, gauze wick placed Progress: Approximately 15 mL purulent foul-smelling drainage released from abscess. Patient tolerated well. Patient was anesthetized with lidocaine 1% 10 mL ED Medical Decision Making - Lab Data Result diagrams: 10/14/19 23:27 10/14/19 23:27 Laboratory Tests 10/14/19 10/14/19 23:27 23:27 WBC 8.6 RBC 4.37 Hgb 13.9 Hct 40.5 MCV 93 MCH 32 MCHC 34 RDW 14.0 Plt Count 188 Lymph % (Auto) 21.1 [place] % (Auto) 6.9 Eos % (Auto) 1.4 Baso % (Auto) 0.4 Lymph # 1.8 [place] # 0.6 Eos # 0.1 Baso # 0.0 Seg Neutrophils % 70.2 H Seg Neutrophils # 6.1 Sodium 144 Potassium 3.5 L Chloride 100.5 Carbon Dioxide 29 Anion Gap 18 BUN 15 Creatinine 0.6 L Estimated GFR > 60 BUN/Creatinine Ratio 25 Glucose 107 H Calcium 9.3 - Radiology Data Radiology results: report reviewed (ultrasound of back), image reviewed (ultrasound of back) [facility] [address] [place] [address] Ultrasound Report Signed Patient: LAYO SCHROEDER MR#: [id number] [birth year] : 1955 Acct:[id number] Age/Sex: 64 / F ADM Date: 10/14/19 Loc: ED Attend ing Dr: Ordering Physician: KIET ROBISON MD Date of Service: 10/14/19 Procedure(s): US unlisted procedure (back) Accession Number(s): [id number] cc: KIET ROBISON MD unlisted procedure (back) INDICATION: possible abscess on back. COMPARISON: None available. FINDINGS: Along the left scapular region at the area of clinical interest is an ovoid complex fluid collection measuring 3.9 x 2.2 x 4.3 cm with surrounding edema. IMPRESSION: Possible abscess near the left scapula as above. Signer Name: Cali Swift MD Signed: 10/15/2019 1:02 AM Workstation Name: [id number] Transcribed By: [place] Dictated By: Cali Swift MD Electronically Authenticated By: Cali Swift MD Signed Date/Time: 10/15/19101 DD/ 0 TD/TT: - Differential Diagnosis lipoma, cellulitis, abscess Critical care attestation.: If time is entered above; I have spent that time in minutes in the direct care of this critically ill patient, excluding procedure time. ED Disposition Clinical Impression: Abscess of back Disposition: -01 TO HOME OR SELFCARE Is pt being admited?: No Does the pt Need Aspirin: No Condition: Stable Instructions: Abscess Incision and Drainage (ED), Abscess (ED) Additional Instructions: Return to the emergency department or follow-up with your primary physician in 48 hours to have your packing removed and your wound reassessed. Return to the emergency department should you develop worsening symptoms, inability to to lerate food or liquids, high fever or any other concerns Prescriptions: Sulfamethoxazole/Trimethoprim [Bactrim DS TAB] 1 each PO BID #20 tablet levoFLOXacin [Levaquin] 750 mg PO QDAY #10 tablet Ibuprofen [Motrin 800 MG tab] 800 mg PO Q8HR PRN #20 tablet PRN Reason: Pain, Moderate (4-6) HYDROcodone/APAP 5-325 [[place] 5/325] 1 - 2 each PO Q6HR PRN #14 tablet PRN Reason: Pain Referrals: KEN PORTER MD [Staff Physician] - 3-5 Days Time of Disposition: 01:57
[2019-10-14 23:43] LABS: Basophils % (Auto) 0.4 % (0.0-1.8); Eosinophils # (Auto) 0.1 K/mm3 (0.0-0.4); Eosinophils % (Auto) 1.4 % (0.0-4.3); Hematocrit 40.5 % (30.3-42.9); Hemoglobin 13.9 gm/dl (10.1-14.3); Lymphocytes # (Auto) 1.8 K/mm3 (1.2-5.4); Lymphocytes % (Auto) 21.1 % (13.4-35.0); Mean Corpuscular HGB Conc 34 % (30-34); Mean Corpuscular Volume 93 fl (79-97); Monocytes # (Auto) 0.6 K/mm3 (0.0-0.8); Monocytes % (Auto) 6.9 % (0.0-7.3); Platelet Count 188 K/mm3 (140-440); Red Blood Count 4.37 M/mm3 (3.65-5.03)
[2019-10-15 00:03] LABS: BUN/Creatinine Ratio 25; Blood Urea Nitrogen 15 mg/dL (7-17); Calcium 9.3 mg/dL (8.4-10.2); Hemolysis Index 4
--- NOTE | 2019-10-15 01:07 | Ultrasound Report ---
US unlisted procedure (back) INDICATION: possible abscess on back. COMPARISON: None available. FINDINGS: Along the left scapular region at the area of clinical interest is an ovoid complex fluid collection measuring 3.9 x 2.2 x 4.3 cm with surrounding edema. IMPRESSION: Possible abscess near the left scapula as above. Signer Name: Cali Swift MD Signed: 10/15/2019 1:02 AM Workstation Name: [id number]
[2019-10-15] MEDS ORDERED: SODIUM CHLORIDE IRRI 500 ML 500 ML IR ONE (01:14)
[2019-10-15] MEDS ORDERED: LIDOCAINE (1%) 10 MG/1 ML VIAL 20 ML MDV ONE (01:14)
[2019-10-15 02:27] VITALS: BP 136/81
== END 2019-10-15 02:31 | disposition home or self-care (01) ==
LOC: ED 19:33
DX: L02.212 Cutaneous abscess of back [any part, except buttock and flank] (principal); I10 Essential (primary) hypertension; M19.90 Unspecified osteoarthritis, unspecified site; J45.909 Unspecified asthma, uncomplicated; Z90.49 Acquired absence of other specified parts of digestive tract; F17.200 Nicotine dependence, unspecified, uncomplicated; Z79.899 Other long term (current) drug therapy; Z88.0 Allergy status to penicillin; Z86.73 Personal history of transient ischemic attack (TIA), and cerebral infarction without residual deficits
CPT/HCPCS: 36415; 76999; 80048; 85025; 87116

== ENCOUNTER 2019-10-17 11:22 | Emergency (ER) | payer MEDICARE ==
[2019-10-17 11:33] VITALS: BP 142/76
--- NOTE | 2019-10-17 11:33 | Event Note ---
ED Screening Note Date of service: 10/17/19 Time: 11:31 ED Screening Note: This is a 64 y.o. F. that presents to the ER for packing removal and wound assessment from I&D 2 days ago. Wound to left upper back. Denies new symptoms. This initial assessment/diagnostic orders/clinical plan/treatment(s) is/are subject to change based on patients health status, clinical progression and re- assessment by fellow clinical providers in the ED. Further treatment and workup at subsequent clinical providers discretion. Patient/guardian urged not to elope from the ED as their condition may be serious if not clinically assessed and managed. Initial orders include:
--- NOTE | 2019-10-17 12:27 | Emergency Department Report ---
- General Chief complaint: Skin/Abscess/Foreign Body Stated complaint: PACKING REMOVED Time Seen by Provider: 10/17/19 11:31 Source: patient Mode of arrival: Ambulatory Limitations: No Limitations - History of Present Illness Initial comments: Mrs. Rodrigues is a very pleasant 64-year-old female with past medical history of rheumatoid arthritis, hypertension, CVA, diverticulitis who presents with need for packing change. My colleague performed performed incision and drainage of abscess and the left upper back 2 days ago. Mrs. Rodrigues states that she's had a cyst in that area for over 5 years. She has active malodorous, purulent drainage. She has been compliant with her antibiotics Levaquin and Bactrim. complaint: abscess/boil -: days(s) (several days) Location: back (left upper back) Severity: mild Consistency: constant Improves with: none Worsens with: none Context: recent illness (recent I&D) Associated symptoms: denies other symptoms - Related Data Home Medications Medication Instructions Recorded Confirmed Last Taken Allopurinol 300 mg PO DAILY 10/12/18 10/12/18 1 Day Ago ~10/11/18 Aspirin EC [Halfprin EC] 81 mg PO DAILY 10/12/18 10/12/18 1 Day Ago ~10/11/18 Banophen 25 mg PO BID PRN 10/12/18 10/12/18 1 Day Ago ~10/11/18 Chlorthalidone 12.5 mg PO QDAY 10/12/18 10/12/18 1 Day Ago ~10/11/18 Colchicine 0.6 mg PO BID 10/12/18 10/12/18 1 Day Ago ~10/11/18 Gabapentin [Neurontin] 300 mg PO Q8HR 10/12/18 10/12/18 1 Day Ago ~10/11/18 Lisinopril [Zestril TAB] 40 mg PO DAILY 10/12/18 1 Day Ago ~10/11/18 sulfaSALAzine [Azulfidine] 500 mg PO BID 10/12/18 10/12/18 1 Day Ago ~10/11/18 Previous Rx's Medication Instructions Recorded Last Taken Type hydroCHLOROthiazide [HCTZ] 12.5 mg PO QDAY #30 capsule 03/24/16 04/21/16 Rx traMADoL [Ultram 50 MG tab] 50 mg PO Q6HR PRN #20 tablet 04/04/16 04/21/16 Rx Polyethylene Glycol 3350 [Miralax 17 gm PO QDAY #30 packet 04/21/16 Unknown Rx 3350] Clindamycin [Clindamycin CAP] 300 mg PO Q8H #21 cap 03/24/19 Unknown Rx HYDROcodone/APAP 5-325 [[place] 1 each PO Q6HR PRN #14 tablet 03/24/19 Unknown Rx 5/325] Ketorolac [Toradol] 10 mg PO Q6H PRN #12 tablet 03/24/19 Unknown Rx Acetaminophen [Acetaminophen TAB] 1,000 mg PO Q6HR PRN #30 tablet 06/26/19 Unknown Rx Fluconazole [Diflucan TAB] 150 mg PO ONCE #1 tablet 06/26/19 Unknown Rx Nitrofurantoin [place]/M-[place]ryst 100 mg PO BID 7 Days #14 capsule 06/26/19 Unknown Rx [Macrobid CAP] Polyethylene Glycol 3350 [Miralax] 119 gm PO DAILY 7 Days #7 each 08/12/19 Unknown Rx HYDROcodone/APAP 5-325 [[place] 1 - 2 each PO Q6HR PRN #14 tablet 10/15/19 Unknown Rx 5/325] Ibuprofen [Motrin 800 MG tab] 800 mg PO Q8HR PRN #20 tablet 10/15/19 Unknown Rx Sulfamethoxazole/Trimethoprim 1 each PO BID #20 tablet 10/15/19 Unknown Rx [Bactrim DS TAB] levoFLOXacin [Levaquin] 750 mg PO QDAY #10 tablet 10/15/19 Unknown Rx Allergies Allergy/AdvReac Type Severity Reaction Status Date / Time Penicillins Allergy Swelling Verified 08/12/19 10:19 Abscess Boil HPI - HPI Chief Complaint: Skin/Abscess/Foreign Body Stated Complaint: PACKING REMOVED Time Seen by Provider: 10/17/19 11:31 Home Medications: Home Medications Medication Instructions Recorded Confirmed Last Taken Allopurinol 300 mg PO DAILY 10/12/18 10/12/18 1 Day Ago ~10/11/18 Aspirin EC [Halfprin EC] 81 mg PO DAILY 10/12/18 10/12/18 1 Day Ago ~10/11/18 Banophen 25 mg PO BID PRN 10/12/18 10/12/18 1 Day Ago ~10/11/18 Chlorthalidone 12.5 mg PO QDAY 10/12/18 10/12/18 1 Day Ago ~10/11/18 Colchicine 0.6 mg PO BID 10/12/18 10/12/18 1 Day Ago ~10/11/18 Gabapentin [Neurontin] 300 mg PO Q8HR 10/12/18 10/12/18 1 Day Ago ~10/11/18 Lisinopril [Zestril TAB] 40 mg PO DAILY 10/12/18 1 Day Ago ~10/11/18 sulfaSALAzine [Azulfidine] 500 mg PO BID 10/12/18 10/12/18 1 Day Ago ~10/11/18 Previous Rx's Medication Instructions Recorded Last Taken Type hydroCHLOROthiazide [HCTZ] 12.5 mg PO QDAY #30 capsule 03/24/16 04/21/16 Rx traMADoL [Ultram 50 MG tab] 50 mg PO Q6HR PRN #20 tablet 04/04/16 04/21/16 Rx Polyethylene Glycol 3350 [Miralax 17 gm PO QDAY #30 packet 04/21/16 Unknown Rx 3350] Clindamycin [Clindamycin CAP] 300 mg PO Q8H #21 cap 03/24/19 Unknown Rx HYDROcodone/APAP 5-325 [[place] 1 each PO Q6HR PRN #14 tablet 03/24/19 Unknown Rx 5/325] Ketorolac [Toradol] 10 mg PO Q6H PRN #12 tablet 03/24/19 Unknown Rx Acetaminophen [Acetaminophen TAB] 1,000 mg PO Q6HR PRN #30 tablet 06/26/19 Unknown Rx Fluconazole [Diflucan TAB] 150 mg PO ONCE #1 tablet 06/26/19 Unknown Rx Nitrofurantoin [place]/M-[place] 100 mg PO BID 7 Days #14 capsule 06/26/19 Unknown Rx [Macrobid CAP] Polyethylene Glycol 3350 [Miralax] 119 gm PO DAILY 7 Days #7 each 08/12/19 Unknown Rx HYDROcodone/APAP 5-325 [[place] 1 - 2 each PO Q6HR PRN #14 tablet 10/15/19 Unknown Rx 5/325] Ibuprofen [Motrin 800 MG tab] 800 mg PO Q8HR PRN #20 tablet 10/15/19 Unknown Rx Sulfamethoxazole/Trimethoprim 1 each PO BID #20 tablet 10/15/19 Unknown Rx [Bactrim DS TAB] levoFLOXacin [Levaquin] 750 mg PO QDAY #10 tablet 10/15/19 Unknown Rx Allergies/Adverse Reactions: Allergies Allergy/AdvReac Type Severity Reaction Status Date / Time Penicillins Allergy Swelling Verified 08/12/19 10:19 ED Review of Systems ROS: Stated complaint: PACKING REMOVED Other details as noted in HPI Constitutional: denies: fever, malaise Respiratory: denies: shortness of breath Cardiovascular: denies: chest pain Gastrointestinal: denies: nausea, vomiting Skin: rash, lesions ED Past Medical Hx - Past Medical History Previous Medical History?: Yes Hx Hypertension: Yes Hx CVA: Yes (no residual) Hx Heart Attack/AMI: No Hx Congestive Heart Failure: No Hx Diabetes: No Hx Deep Vein Thrombosis: No Hx Pulmonary Embolism: No Hx Arthritis: Yes (RA) Hx Seizures: No Hx Asthma: Yes Hx COPD: No Hx Tuberculosis: No Hx Dementia: No Hx HIV: No Additional medical history: staph right foot on and off; diverticulitis - Surgical History Past Surgical History?: Yes Hx Coronary Stent: No Hx Open Heart Surgery: No Hx Pacemaker: No Hx Internal Defibrillator: No Hx Cholecystectomy: Yes Hx Appendectomy: No Hx Breast Surgery: No Additional Surgical History: sigmoid colon resection with colostomy and reversal - Social History Smoking Status: Never Smoker Substance Use Type: None - Medications Home Medications: Home Medications Medication Instructions Recorded Confirmed Last Taken Type hydroCHLOROthiazide [HCTZ] 12.5 mg PO QDAY #30 capsule 03/24/16 04/21/16 04/21/16 Rx traMADoL [Ultram 50 MG tab] 50 mg PO Q6HR PRN #20 tablet 04/04/16 04/21/16 04/21/16 Rx Polyethylene Glycol 3350 [Miralax 17 gm PO QDAY #30 packet 04/21/16 Unknown Rx 3350] Allopurinol 300 mg PO DAILY 10/12/18 10/12/18 1 Day Ago History ~10/11/18 Aspirin EC [Halfprin EC] 81 mg PO DAILY 10/12/18 10/12/18 1 Day Ago History ~10/11/18 Banophen 25 mg PO BID PRN 10/12/18 10/12/18 1 Day Ago History ~10/11/18 Chlorthalidone 12.5 mg PO QDAY 10/12/18 10/12/18 1 Day Ago History ~10/11/18 Colchicine 0.6 mg PO BID 10/12/18 10/12/18 1 Day Ago History ~10/11/18 Gabapentin [Neurontin] 300 mg PO Q8HR 10/12/18 10/12/18 1 Day Ago History ~10/11/18 Lisinopril [Zestril TAB] 40 mg PO DAILY 10/12/18 1 Day Ago History ~10/11/18 sulfaSALAzine [Azulfidine] 500 mg PO BID 10/12/18 10/12/18 1 Day Ago History ~10/11/18 Clindamycin [Clindamycin CAP] 300 mg PO Q8H #21 cap 03/24/19 Unknown Rx HYDROcodone/APAP 5-325 [[place] 1 each PO Q6HR PRN #14 tablet 03/24/19 Unknown Rx 5/325] Ketorolac [Toradol] 10 mg PO Q6H PRN #12 tablet 03/24/19 Unknown Rx Acetaminophen [Acetaminophen TAB] 1,000 mg PO Q6HR PRN #30 tablet 06/26/19 Unknown Rx Fluconazole [Diflucan TAB] 150 mg PO ONCE #1 tablet 06/26/19 Unknown Rx Nitrofurantoin [place]/M-Cryst 100 mg PO BID 7 Days #14 capsule 06/26/19 Unknown Rx [Macrobid CAP] Polyethylene Glycol 3350 [Miralax] 119 gm PO DAILY 7 Days #7 each 08/12/19 Unknown Rx HYDROcodone/APAP 5-325 [[place] 1 - 2 each PO Q6HR PRN #14 tablet 10/15/19 Unknown Rx 5/325] Ibuprofen [Motrin 800 MG tab] 800 mg PO Q8HR PRN #20 tablet 10/15/19 Unknown Rx Sulfamethoxazole/Trimethoprim 1 each PO BID #20 tablet 10/15/19 Unknown Rx [Bactrim DS TAB] levoFLOXacin [Levaquin] 750 mg PO QDAY #10 tablet 10/15/19 Unknown Rx ED Physical Exam - General Limitations: No Limitations General appearance: alert, in no apparent distress - Head Head exam: Present: atraumatic, normocephalic - Neck Neck exam: Present: normal inspection - Respiratory Respiratory exam: Absent: respiratory distress - Neurological Exam Neurological exam: Present: alert, oriented X3 - Psychiatric Psychiatric exam: Present: normal affect, normal mood - Skin Skin exam: Present: other (Left upper back: 5 cm abscess with iodoform packing, copious purulence expressed with manipulation) ED Course Vital Signs 10/17/19 11:32 Temperature 98.6 F Pulse Rate 72 Respiratory 18 Rate Blood Pressure 142/76 O2 Sat by Pulse 99 Oximetry - Procedure Description Procedures done: Abscess packing change: I removed 40 cm of iodoform 1/4 inch soaked with copious purulence. I replaced the iodofrom 1/4 inch with 10 cm packing in length. Nursing applied sterile dressing. ED Medical Decision Making - Medical Decision Making Abscess packing change: I replaced iodoform packing according to above procedure note. I recommended follow-up with her personal physician or returning to the emergency Department next week for abscess check. Critical care attestation.: If time is entered above; I have spent that time in minutes in the direct care of this critically ill patient, excluding procedure time. ED Disposition Clinical Impression: Abscess packing removal, Abscess of back Disposition: DC-01 TO HOME OR SELFCARE Is pt being admited?: No Does the pt Need Aspirin: No Condition: Stable Referrals: PRIMARY CARE, [Primary Care Provider] - 3-5 Days
== END 2019-10-17 12:56 | disposition home or self-care (01) ==
LOC: ED 11:22
DX: L02.212 Cutaneous abscess of back [any part, except buttock and flank] (principal); I10 Essential (primary) hypertension; Z48.00 Encounter for change or removal of nonsurgical wound dressing; Z86.73 Personal history of transient ischemic attack (TIA), and cerebral infarction without residual deficits; M19.90 Unspecified osteoarthritis, unspecified site; Z90.49 Acquired absence of other specified parts of digestive tract; Z98.890 Other specified postprocedural states; Z79.1 Long term (current) use of non-steroidal anti-inflammatories (NSAID); Z79.899 Other long term (current) drug therapy; Z88.0 Allergy status to penicillin

== ENCOUNTER 2021-09-08 15:55 | Observation (INO) | payer MEDICARE ==
[~2021-09-08 15:55] MED LIST: diphenhydrAMINE 25 MG CAP PO ONE
--- NOTE | 2021-09-08 17:03 | Emergency Department Report ---
HPI - General Chief Complaint: Neuro Symptoms/Deficit Time Seen by Provider: 09/08/21 16:22 - HPI HPI: Room 39 The patient is a 66-year-old female present with a chief complaint of right facial numbness. The patient states for the past 2 days she has had numbness in the right face intermittently usually lasting several hours before resolving. The patient states when she awakened this morning at 08: 30 she again had been numbness but has been constant. Patient states she also has intermittent numbness of her right hand but she has had that for several years. Patient denies dysarthria or dysphagia. Patient complains of right-sided frontal hea dache associated with her symptoms also presenting over the last 2 days. Patient denies nausea or vomiting. The patient has been wheelchair bound since 1999 secondary to osteoarthritis in both hips ED Past Medical Hx - Past Medical History Hx Hypertension: Yes Hx CVA: Yes (no residual) Hx Arthritis: Yes (RA) Hx Asthma: Yes Additional medical history: staph right foot on and off; diverticulitis - Surgical History Hx Cholecystectomy: Yes Additional Surgical History: sigmoid colon resection with colostomy and reversal secondary to diverticulitis - Family History Family history: no significant - Social History Smoking Status: Current Some Day Smoker (None x15 years) Substance Use Type: None (Denies illicit drug use) - Medications Home Medications: Home Medications Medication Instructions Recorded Confirmed Last Taken Type hydroCHLOROthiazide [HCTZ] 12.5 mg PO QDAY #30 capsule 03/24/16 04/21/16 04/21/16 Rx traMADoL [Ultram 50 MG tab] 50 mg PO Q6HR PRN #20 tablet 04/04/16 04/21/16 04/21/16 Rx polyethylene glycoL 3350 [Miralax 17 gm PO QDAY #30 packet 04/21/16 Unknown Rx 3350] Aspirin EC [Halfprin EC] 81 mg PO DAILY 10/12/18 10/12/18 1 Day Ago History ~10/11/18 Banophen 25 mg PO BID PRN 10/12/18 10/12/18 1 Day Ago History ~10/11/18 Chlorthalidone 12.5 mg PO QDAY 10/12/18 10/12/18 1 Day Ago History ~10/11/18 Colchicine 0.6 mg PO BID 10/12/18 10/12/18 1 Day Ago History ~10/11/18 Gabapentin [Neurontin] 300 mg PO Q8HR 10/12/18 10/12/18 1 Day Ago History ~10/11/18 allopurinoL [Allopurinol] 300 mg PO DAILY 10/12/18 10/12/18 1 Day Ago History ~10/11/18 lisinopriL [Zestril TAB] 40 mg PO DAILY 10/12/18 1 Day Ago History ~10/11/18 sulfaSALAzine [Azulfidine] 500 mg PO BID 10/12/18 10/12/18 1 Day Ago History ~10/11/18 Clindamycin [Clindamycin CAP] 300 mg PO Q8H #21 cap 03/24/19 Unknown Rx HYDROcodone/APAP 5-325 [[place] 1 each PO Q6HR PRN #14 tablet 03/24/19 Unknown Rx 5/325] Ketorolac [Toradol] 10 mg PO Q6H PRN #12 tablet 03/24/19 Unknown Rx Acetaminophen [Acetaminophen TAB] 1,000 mg PO Q6HR PRN #30 tablet 06/26/19 Unknown Rx Fluconazole (Nf) [Diflucan TAB] 150 mg PO ONCE #1 tablet 06/26/19 Unknown Rx Nitrofurantoin [place]/M-Cryst 100 mg PO BID 7 Days #14 capsule 06/26/19 Unknown Rx [Macrobid CAP] Polyethylene Glycol 3350 [Miralax] 119 gm PO DAILY 7 Days #7 each 08/12/19 Unknown Rx HYDROcodone/APAP 5-325 [[place] 1 - 2 each PO Q6HR PRN #14 tablet 10/15/19 Unknown Rx 5/325] Ibuprofen [Motrin 800 MG tab] 800 mg PO Q8HR PRN #20 tablet 10/15/19 Unknown Rx Sulfamethoxazole/Trimethoprim 1 each PO BID #20 tablet 10/15/19 Unknown Rx [Bactrim DS TAB] levoFLOXacin [Levaquin] 750 mg PO QDAY #10 tablet 10/15/19 Unknown Rx ED Review of Systems ROS: Stated complaint: NUMBNESS RT SIDE OF FACE AND HEAD DIZZY Other details as noted in HPI Constitutional: no symptoms reported Eyes: denies: eye pain ENT: denies: throat pain Respiratory: no symptoms reported Cardiovascular: denies: chest pain Endocrine: no symptoms reported Gastrointestinal: denies: nausea, vomiting Genitourinary: denies: dysuria Musculoskeletal: denies: back pain Neurological: headache, paresthesias. denies: weakness Physical Exam - Physical Exam Vital Signs: Vital Signs 09/08/21 16:15 Temperature 98.3 F Pulse Rate 74 Respiratory 20 Rate Blood Pressure 143/65 [Left] O2 Sat by Pulse 96 Oximetry Physical Exam: GENERAL: The patient is well-developed well-nourished female lying on stretcher not appearing to be in acute distress. [] HEENT: Normocephalic. Atraumatic. Extraocular motions are intact. Patient has moist mucous membranes. NECK: Supple. Trachea midline CHEST/LUNGS: Clear to auscultation. There is no respiratory distress noted. HEART/CARDIOVASCULAR: Regular. There is no tachycardia. There is no gallop rub or murmur. ABDOMEN: Abdomen is soft, nontender. Patient has normal bowel sounds. There is no abdominal distention. SKIN: There is no rash. There is no edema. There is no diaphoresis. NEURO: The patient is awake, alert, and oriented. The patient is cooperative. Right-sided facial numbness otherwise cranial nerves II through XII grossly intact. The patient has normal speech. The patient is able to hold either upper extremity at 45 degree angle for 10-second count without drift. The patient is only able to hold the right lower extremity at 30 degree angle for 3 seconds before it falls to the bed. Patient is able to hold the left lower extremity at 30 degree angle for 5-second count without drifting but not falling completely to the bed. NIHSS= 3. GCS 15 MUSCULOSKELETAL: There is no evidence of acute injury. ED Course Vital Signs 09/08/21 16:15 Temperature 98.3 F Pulse Rate 74 Respiratory 20 Rate Blood Pressure 143/65 [Left] O2 Sat by Pulse 96 Oximetry ED Medical Decision Making - Lab Data Result diagrams: 09/08/21 16:48 09/08/21 16:48 Laboratory Tests 09/08/21 09/08/21 09/08/21 16:48 16:48 16:48 WBC 5.6 RBC 4.40 Hgb 13.9 Hct 41.5 MCV 94 MCH 32 MCHC 34 RDW 15.2 Plt Count 156 Lymph % (Auto) 22.0 [place] % (Auto) 6.7 Eos % (Auto) 1.0 Baso % (Auto) 0.4 Lymph # (Auto) 1.2 [place] # (Auto) 0.4 Eos # (Auto) 0.1 Baso # (Auto) 0.0 Seg Neutrophils % 69.9 Seg Neutrophils # 3.9 PT 13.9 INR 0.96 APTT 33.3 Thrombin Time 14.8 L Sodium 142 Potassium 4.1 Chloride 102.2 Carbon Dioxide 30 Anion Gap 14 BUN 16 Creatinine 0.5 L Estimated GFR > 60 BUN/Creatinine Ratio 32 Glucose 114 H Calcium 9.3 Total Bilirubin 0.30 AST 15 ALT 16 Alkaline Phosphatase 54 Total Protein 7.3 Albumin 4.0 Albumin/Globulin Ratio 1.2 - EKG Data -: EKG Interpreted by Ct EKG shows normal: sinus rhythm Rate: normal (63 bpm) - EKG Data When compared to previous EKG there are: previous EKG unavailable Interpretation: nonspecific ST-T wave luis (T wave inversion lead III) - Radiology Data Radiology results: report reviewed (CT head), image reviewed (CT head) [place] [address] Cat Scan Report Signed Patient: LAYO SCHROEDER MR#: [id number] [birth year] : 1955 Acct:[id number] Age/Sex: 66 / F ADM Date: 09/08/21 Loc: ED Attending Dr: Ordering Physician: ASIA CAMPBELL Date of Service: 09/08/21 Procedure(s): CT head/brain wo con Accession Number(s): [id number] cc: ASIA CAMPBELL CT head/brain wo con INDICATION / CLINICAL INFORMATION: 66 years Female; right facial numbness. TECHNIQUE: Routine CT head without contrast. All CT scans at this location are performed using CT dose reduction for ALARA by means of automated exposure control. COMPARISON: None. FINDINGS: BRAIN / INTRACRANIAL CONTENTS: The motion degrades the image quality. However, there is suggestion of mild cerebral white matter disease most consistent with mild microvascular angiopathy. Is also mild cerebral atrophy. The ventricular system is correspond ingly appropriate in size and configuration. There is no clear CT evidence of acute intracranial hemorrhage or significant mass effect. ORBITS: No significant abnormality of visualized orbits. SINUSES / MASTOIDS: No significant abnormality in the visualized paranasal sinuses or mastoid air cells. CR ANIOCERVICAL JUNCTION: No significant abnormality. ADDITIONAL FINDINGS: None. IMPRESSION: 1. There is no clear CT evidence of acute intracranial process. Signer Name: Pavel Kohli MD Signed: 09/08/2021 6:01 PM Workstation Name: [id number] Transcribed By: MR Dictated By: Pavel Kohli MD Electronically Authenticated By: Paevl Kohli MD Signed Date/Time: 09/08/211800 DD/ 57 TD/TT: Print - Differential Diagnosis CVA, TIAs, complex migraine, intracranial mass Critical care attestation.: If time is entered above; I have spent that time in minutes in the direct care of this critically ill patient, excluding procedure time. ED Disposition Clinical Impression: Neurological deficit present Disposition: ADMITTED INPATIENT Is pt being admited?: Yes Does the pt Need Aspirin: Yes Condition: Fair Referrals: PRIMARY CARE, [Primary Care Provider] - 3-5 Days Time of Disposition: 18:54 (Hospitalist called (Dr. Manning))
[2021-09-08 17:23] LABS: Basophils % (Auto) 0.4 % (0.0-1.8); Eosinophils # (Auto) 0.1 K/mm3 (0.0-0.4); Hematocrit 41.5 % (30.3-42.9); Hemoglobin 13.9 gm/dl (10.1-14.3); Lymphocytes # (Auto) 1.2 K/mm3 (1.2-5.4); Mean Corpuscular HGB Conc 34 % (30-34); Mean Corpuscular Volume 94 fl (79-97); Monocytes # (Auto) 0.4 K/mm3 (0.0-0.8); Monocytes % (Auto) 6.7 % (0.0-7.3); Platelet Count 156 K/mm3 (140-440); Red Cell Distribution Width 15.2 % (13.2-15.2)
[2021-09-08 17:26] LABS: INR 0.96 (0.87-1.13)
[2021-09-08 17:27] LABS: Partial Thromboplastin Time 33.3 Sec. (24.2-36.6); Thrombin Time 14.8 Sec. (15.1-19.6)
[2021-09-08 17:31] LABS: Alanine Aminotransferase 16 units/L (7-56); Blood Urea Nitrogen 16 mg/dL (7-17); Calcium 9.3 mg/dL (8.4-10.2); Hemolysis Index 8
[2021-09-08 17:32] LABS: BUN/Creatinine Ratio 32
--- NOTE | 2021-09-08 18:05 | Cat Scan Report ---
CT head/brain wo con INDICATION / CLINICAL INFORMATION: 66 years Female; right facial numbness. TECHNIQUE: Routine CT head without contrast. All CT scans at this location are performed using CT dos e reduction for ALARA by means of automated exposure control. COMPARISON: None. FINDINGS: BRAIN / INTRACRANIAL CONTENTS: The motion degrades the image quality. However, there is suggestion of mild cerebral white matter disease most consistent with mild microvascular angiopathy. Is also mild cerebral atrophy. The ventricular system is correspondingly appropriate in size and configuration. Th ere is no clear CT evidence of acute intracranial hemorrhage or significant mass effect. ORBITS: No significant abnormality of visualized orbits. SINUSES / MASTOIDS: No significant abnormality in the visualized paranasal sinuses or mastoid air tristen ls. CRANIOCERVICAL JUNCTION: No significant abnormality. ADDITIONAL FINDINGS: None. IMPRESSION: 1. There is no clear CT evidence of acute intracranial process. Signer Name: Pavel Kohli MD Signed: 09/08/2021 6:01 PM Workstation Name: [id number]
[2021-09-08] MEDS ORDERED: ASPIRIN 325 MG TAB PO ONE (18:54)
--- NOTE | 2021-09-08 22:01 | History and Physical Report ---
History of Present Illness Date of examination: 09/08/21 Date of admission: 09/08/21 18:55 Chief complaint: Right-sided facial numbness since a.m. History of present illness: The patient is a 66-year-old female present with a chief complaint of right facial numbness. The patient states for the past 2 days she has had numbness in the right face intermittently usually lasting several hours before resolving. The patient states when she awakened this morning at 08: 30 she again had been numbness but has been constant. Patient states she also has intermittent nu mbness of her right hand but she has had that for several years. Patient denies dysarthria or dysphagia. Patient complains of right-sided frontal headache associated with her symptoms also presenting over the last 2 days. Patient denies nausea or vomiting. The patient has been wheelchair bound since 1999 secondary to osteoarthritis in both hips - Past Medical History Hx Hypertension: Yes Hx CVA: Yes (no residual) Hx Arthritis: Yes (RA) Hx Asthma: Yes Additional medical history: staph right foot on and off; diverticulitis - Surgical History Hx Cholecystectomy: Yes Additional Surgical History: sigmoid colon resection with colostomy and reversal secondary to diverticulitis - Family History Family history: no significant - Social History Smoking Status: Current Some Day Smoker (None x15 years) Substance Use Type: None (Denies illicit drug use) Review of Systems ROS: Stated complaint: NUMBNESS RT SIDE OF FACE AND HEAD DIZZY Other details as noted in HPI Constitutional: no symptoms reported Eyes: denies: eye pain ENT: denies: throat pain Respiratory: no symptoms reported Cardiovascular: denies: chest pain Endocrine: no symptoms reported Gastrointestinal: denies: nausea, vomiting Genitourinary: denies: dysuria Musculoskeletal: denies: back pain Neurological: headache, paresthesias. denies: weakness Medications and Allergies Allergies Allergy/AdvReac Type Severity Reaction Status Date / Time Penicillins Allergy Swelling Verified 08/12/19 10:19 Home Medications Medication Instructions Recorded Confirmed Last Taken Type hydroCHLOROthiazide [HCTZ] 12.5 mg PO QDAY #30 capsule 03/24/16 09/08/21 04/21/16 Rx traMADoL [Ultram 50 MG tab] 50 mg PO Q6HR PRN #20 tablet 04/04/16 09/08/21 09/08/21 Rx polyethylene glycoL 3350 [Miralax 17 gm PO QDAY #30 packet 04/21/16 09/08/21 09/08/21 Rx 3350] Aspirin EC [Halfprin EC] 81 mg PO DAILY 10/12/18 09/08/21 09/08/21 History Banophen 25 mg PO BID PRN 10/12/18 09/08/21 1 Day Ago History ~10/11/18 Chlorthalidone 12.5 mg PO QDAY 10/12/18 09/08/21 1 Day Ago History ~10/11/18 Gabapentin [Neurontin] 300 mg PO Q8HR 10/12/18 09/08/21 1 Day Ago History ~10/11/18 allopurinoL [Allopurinol] 300 mg PO DAILY 10/12/18 09/08/21 09/08/21 History lisinopriL [Zestril TAB] 40 mg PO DAILY 10/12/18 09/08/21 09/08/21 History sulfaSALAzine [Azulfidine] 500 mg PO BID 10/12/18 09/08/21 1 Day Ago History ~10/11/18 Acetaminophen [Acetaminophen TAB] 1,000 mg PO Q6HR PRN #30 tablet 06/26/19 09/08/21 Unknown Rx Fluconazole (Nf) [Diflucan TAB] 150 mg PO ONCE #1 tablet 06/26/19 09/08/21 Unknown Rx Polyethylene Glycol 3350 [Miralax] 119 gm PO DAILY 7 Days #7 each 08/12/19 09/08/21 Unknown Rx Exam - Constitutional Vitals: Temp Pulse Resp BP Pulse Ox 98.6 F 70 11 L 150/86 99 09/08/21 19:08 09/08/21 21:11 09/08/21 21:11 09/08/21 21:11 09/08/21 21:11 Results - Labs CBC & Chem 7: 09/09/21 04:32 09/09/21 04:32 Labs: Laboratory Last Values WBC 5.6 K/mm3 (4.5-11.0) 09/08/21 16:48 RBC 4.40 M/mm3 (3.65-5.03) 09/08/21 16:48 Hgb 13.9 gm/dl (10.1-14.3) 09/08/21 16:48 Hct 41.5 % (30.3-42.9) 09/08/21 16:48 MCV 94 fl (79-97) 09/08/21 16:48 MCH 32 pg (28-32) 09/08/21 16:48 MCHC 34 % (30-34) 09/08/21 16:48 RDW 15.2 % (13.2-15.2) 09/08/21 16:48 Plt Count 156 K/mm3 (140-440) 09/08/21 16:48 Lymph % (Auto) 22.0 % (13.4-35.0) 09/08/21 16:48 [place] % (Auto) 6.7 % (0.0-7.3) 09/08/21 16:48 Eos % (Auto) 1.0 % (0.0-4.3) 09/08/21 16:48 Baso % (Auto) 0.4 % (0.0-1.8) 09/08/21 16:48 Lymph # (Auto) 1.2 K/mm3 (1.2-5.4) 09/08/21 16:48 [place] # (Auto) 0.4 K/mm3 (0.0-0.8) 09/08/21 16:48 Eos # (Auto) 0.1 K/mm3 (0.0-0.4) 09/08/21 16:48 Baso # (Auto) 0.0 K/mm3 (0.0-0.1) 09/08/21 16:48 Seg Neutrophils % 69.9 % (40.0-70.0) 09/08/21 16:48 Seg Neutrophils # 3.9 K/mm3 (1.8-7.7) 09/08/21 16:48 PT 13.9 Sec. (12.2-14.9) 09/08/21 16:48 INR 0.96 (0.87-1.13) 09/08/21 16:48 APTT 33.3 Sec. (24.2-36.6) 09/08/21 16:48 Thrombin Time 14.8 Sec. (15.1-19.6) L 09/08/21 16:48 Sodium 142 mmol/L (137-145) 09/08/21 16:48 Potassium 4.1 mmol/L (3.6-5.0) 09/08/21 16:48 Chloride 102.2 mmol/L (98-107) 09/08/21 16:48 Carbon Dioxide 30 mmol/L (22-30) 09/08/21 16:48 Anion Gap 14 mmol/L 09/08/21 16:48 BUN 16 mg/dL (7-17) 09/08/21 16:48 Creatinine 0.5 mg/dL (0.6-1.2) L 09/08/21 16:48 Estimated GFR > 60 ml/min 09/08/21 16:48 BUN/Creatinine Ratio 32 % 09/08/21 16:48 Glucose 114 mg/dL (65-100) H 09/08/21 16:48 Calcium 9.3 mg/dL (8.4-10.2) 09/08/21 16:48 Total Bilirubin 0.30 mg/dL (0.1-1.2) 09/08/21 16:48 AST 15 units/L (5-40) 09/08/21 16:48 ALT 16 units/L (7-56) 09/08/21 16:48 Alkaline Phosphatase 54 units/L (35-129) 09/08/21 16:48 Total Protein 7.3 g/dL (6.3-8.2) 09/08/21 16:48 Albumin 4.0 g/dL (3.9-5) 09/08/21 16:48 Albumin/Globulin Ratio 1.2 % 09/08/21 16:48 Assessment and Plan Advance Directives: Yes (Full code) VTE prophylaxis?: Chemical Plan of care discussed with patient/family: Yes - Patient Problems (1) TIA (transient ischemic attack) Current Visit: Yes Status: Acute Plan to address problem: Patient had right facial numbness and right-sided numbness After few hours in the emergency room the symptoms are nearly resolved TIA work-up Carotid duplex scan and echocardiogram and MRI if possible Probable discharge tomorrow (2) Hypertension Current Visit: No Status: Chronic Qualifiers: Hypertension type: essential hypertension Qualified Code(s): I10 - Essential (primary) hypertension Plan to address problem: Continue antihypertensives and adjust medications (3) Morbid obesity Current Visit: No Status: Chronic Plan to address problem: Patient to be referred to bariatric surgery at the time of discharge (4) DVT prophylaxis Current Visit: No Status: Acute Plan to address problem: On heparin and GI prophylaxis
[2021-09-08] MEDS ORDERED: BANOPHEN 25 MG PO PRN (22:04)
[2021-09-08] MEDS ORDERED: METOCLOPRAMIDE 10 MG/2 ML INJ IV PRN (22:09)
[2021-09-08] MEDS ORDERED: oxyCODONE /ACETAMINOPHEN 5-325MG TAB PO PRN (22:09)
[2021-09-08] MEDS ORDERED: ACETAMINOPHEN 325 MG TAB PO PRN (22:09)
[2021-09-08] MEDS ORDERED: ONDANSETRON 4 MG/2 ML INJ IV PRN (22:09)
[2021-09-08] MEDS ORDERED: SODIUM CHLORIDE 0.9% 1000 ML 1,000 ML IV SCH (22:15)
[2021-09-08] MEDS: FAMOTIDINE 20 MG/2 ML INJ IV SCH (22:51)
[2021-09-08] MEDS: HYDROmorphone 1 MG/1 ML INJ IV PRN (22:51)
[2021-09-08] MEDS: sulfaSALAzine 500 MG TAB PO SCH (23:29)
[2021-09-09] MEDS: diphenhydrAMINE 25 MG CAP PO PRN ×2 (04:27→22:24)
[2021-09-09 05:24] LABS: Basophils % (Auto) 0.3 % (0.0-1.8); Eosinophils # (Auto) 0.1 K/mm3 (0.0-0.4); Eosinophils % (Auto) 1.2 % (0.0-4.3); Hematocrit 40.1 % (30.3-42.9); Hemoglobin 13.6 gm/dl (10.1-14.3); Lymphocytes # (Auto) 1.9 K/mm3 (1.2-5.4); Lymphocytes % (Auto) 30.1 % (13.4-35.0); Mean Corpuscular HGB Conc 34 % (30-34); Mean Corpuscular Volume 93 fl (79-97); Monocytes # (Auto) 0.4 K/mm3 (0.0-0.8); Monocytes % (Auto) 6.5 % (0.0-7.3); Platelet Count 138 K/mm3 (140-440); Red Blood Count 4.31 M/mm3 (3.65-5.03); Red Cell Distribution Width 14.7 % (13.2-15.2)
[2021-09-09] MEDS: GABAPENTIN 300 MG CAP PO SCH ×3 (05:26→21:57)
[2021-09-09 05:37] LABS: Alanine Aminotransferase 14 units/L (7-56); Albumin 3.5 g/dL (3.9-5); Blood Urea Nitrogen 13 mg/dL (7-17); Hemolysis Index 6
[2021-09-09 05:49] LABS: BUN/Creatinine Ratio 26
--- NOTE | 2021-09-09 08:35 | Consultation ---
History of Present Illness Consult date: 09/09/21 Reason for Consult: Right facial numbness>24 hours History of present illness: Right-sided facial numbness since a.m. History of present illness: The patient is a 66-year-old female present with a chief complaint of right facial numbness. The patient states for the past 2 days she has had numbness in the right face intermittently usually lasting several hours before resolving. The patient states when she awakened X24 hours ago morning at 08: 30 she again had been numbness but has been constant. Patient states she also has intermittent numbness of her right hand but she has had that for several years. Patient denies dysarthria or dysphagia. Patient complains of right-sided frontal headache associated with her symptoms also presenting over the last 2 days. Patient denies nausea or vomiting. The patient has been wheelchair bound since 1999 secondary to osteoarthritis in both hips pt. is on ASA daily for years quit smoking >20 ys ago -In ER CT brain is unremarkable -CTA not done -MRI brain is pending - Past Medical History Hx Hypertension: Yes Hx CVA: Yes (no residual) Hx Arthritis: Yes (RA) Hx Asthma: Yes Additional medical history: staph right foot on and off; diverticulitis - Surgical History Hx Cholecystectomy: Yes Additional Surgical History: sigmoid colon resection with colostomy and reversal secondary to diverticulitis - Family History Family history: no significant - Social History Smoking Status: Current Some Day Smoker (None x15 years) Substance Use Type: None (Denies illicit drug use) Review of Systems ROS: Stated complaint: NUMBNESS RT SIDE OF FACE AND HEAD DIZZY Other details as noted in HPI Constitutional: no symptoms reported Eyes: denies: eye pain ENT: denies: throat pain Respiratory: no symptoms reported Cardiovascular: denies: chest pain Endocrine: no symptoms reported Gastrointestinal: denies: nausea, vomiting Genitourinary: denies: dysuria Musculoskeletal: denies: back pain Neurological: headache, paresthesias. denies: weakness Medications and Allergies Allergies Allergy/AdvReac Type Severity Reaction Status Date / Time Penicillins Allergy Swelling Verified 08/12/19 10:19 Home Medications Medication Instructions Recorded Confirmed Last Taken Type hydroCHLOROthiazide [HCTZ] 12.5 mg PO QDAY #30 capsule 03/24/16 09/08/21 04/21/16 Rx traMADoL [Ultram 50 MG tab] 50 mg PO Q6HR PRN #20 tablet 04/04/16 09/08/21 09/08/21 Rx polyethylene glycoL 3350 [Miralax 17 gm PO QDAY #30 packet 04/21/16 09/08/21 09/08/21 Rx 3350] Aspirin EC [Halfprin EC] 81 mg PO DAILY 10/12/18 09/08/21 09/08/21 History Banophen 25 mg PO BID PRN 10/12/18 09/08/21 1 Day Ago History ~10/11/18 Chlorthalidone 12.5 mg PO QDAY 10/12/18 09/08/21 1 Day Ago History ~10/11/18 Gabapentin [Neurontin] 300 mg PO Q8HR 10/12/18 09/08/21 1 Day Ago History ~10/11/18 allopurinoL [Allopurinol] 300 mg PO DAILY 10/12/18 09/08/21 09/08/21 History lisinopriL [Zestril TAB] 40 mg PO DAILY 10/12/18 09/08/21 09/08/21 History sulfaSALAzine [Azulfidine] 500 mg PO BID 10/12/18 09/08/21 1 Day Ago History ~10/11/18 Acetaminophen [Acetaminophen TAB] 1,000 mg PO Q6HR PRN #30 tablet 06/26/19 09/08/21 Unknown Rx Fluconazole (Nf) [Diflucan TAB] 150 mg PO ONCE #1 tablet 06/26/19 09/08/21 Unknown Rx Polyethylene Glycol 3350 [Miralax] 119 gm PO DAILY 7 Days #7 each 08/12/19 09/08/21 Unknown Rx Medications and Allergies Allergies Allergy/AdvReac Type Severity Reaction Status Date / Time Penicillins Allergy Swelling Verified 08/12/19 10:19 Home Medications Medication Instructions Recorded Confirmed Last Taken Type hydroCHLOROthiazide [HCTZ] 12.5 mg PO QDAY #30 capsule 03/24/16 09/08/21 04/21/16 Rx traMADoL [Ultram 50 MG tab] 50 mg PO Q6HR PRN #20 tablet 04/04/16 09/08/21 09/08/21 Rx polyethylene glycoL 3350 [Miralax 17 gm PO QDAY #30 packet 04/21/16 09/08/2102/23 Rx 3350] Aspirin EC [Halfprin EC] 81 mg PO DAILY 10/12/18 09/08/21 09/08/21 History Banophen 25 mg PO BID PRN 10/12/18 09/08/21 1 Day Ago History ~10/11/18 Chlorthalidone 12.5 mg PO QDAY 10/12/18 09/08/21 1 Day Ago History ~10/11/18 Gabapentin [Neurontin] 300 mg PO Q8HR 10/12/18 09/08/21 1 Day Ago History ~10/11/18 allopurinoL [Allopurinol] 300 mg PO DAILY 10/12/18 09/08/21 09/08/21 History lisinopriL [Zestril TAB] 40 mg PO DAILY 10/12/18 09/08/21 09/08/21 History sulfaSALAzine [Azulfidine] 500 mg PO BID 10/12/18 09/08/21 1 Day Ago History ~10/11/18 Acetaminophen [Acetaminophen TAB] 1,000 mg PO Q6HR PRN #30 tablet 06/26/19 09/08/21 Unknown Rx Fluconazole (Nf) [Diflucan TAB] 150 mg PO ONCE #1 tablet 06/26/19 09/08/21 Unknown Rx Polyethylene Glycol 3350 [Miralax] 119 gm PO DAILY 7 Days #7 each 08/12/19 09/08/21 Unknown Rx Active Meds: Active Medications Acetaminophen (Acetaminophen 325 Mg Tab) 650 mg PO Q4H PRN PRN Reason: Pain MILD(1-3)/Fever >100.5/WOO Allopurinol (Allopurinol 300 Mg Tab) 300 mg PO DAILY [facility] Aspirin (Aspirin Ec 81 Mg Tab) 81 mg PO DAILY [facility] Chlorthalidone (Chlorthalidone 25 Mg Tab) 12.5 mg PO QDAY [facility] Diphenhydramine HCl (Diphenhydramine 25 Mg Cap) 25 mg PO BID PRN PRN Reason: Itching Last Admin: 09/09/21 04:27 Dose: 25 mg Documented by: Famotidine (Famotidine 20 Mg/2 Ml Inj) 20 mg IV BID [facility] Last Admin: 09/08/21 22:51 Dose: 20 mg Documented by: Gabapentin (Gabapentin 300 Mg Cap) 300 mg PO Q8HR [facility] Last Admin: 09/09/21 05:26 Dose: 300 mg Documented by: Heparin Sodium (Porcine) (Heparin 5,000 Unit/1 Ml Vial) 5,000 unit SUB-Q Q12HR [facility] Hydromorphone HCl (Hydromorphone 1 Mg/1 Ml Inj) 0.5 mg IV Q3H PRN PRN Reason: Pain , Severe (7-10) Last Admin: 09/08/21 22:51 Dose: 0.5 mg Documented by: Sodium Chloride (Nacl 0.9% 1000 Ml) 1,000 mls @ 75 mls/hr IV DIRECT TAYLOR Last Admin: 09/08/21 22:52 Dose: 75 mls/hr Documented by: Lisinopril (Lisinopril 40 Mg Tab) 40 mg PO DAILY [facility] Metoclopramide HCl (Metoclopramide 10 Mg/2 Ml Inj) 10 mg IV Q6H PRN PRN Reason: Nausea And Vomiting Ondansetron HCl (Ondansetron 4 Mg/2 Ml Inj) 4 mg IV Q8H PRN PRN Reason: Nausea And Vomiting Oxycodone/Acetaminophen (Oxycodone /Acetaminophen 5-325mg Tab) 1 tab PO Q6H PRN PRN Reason: Pain, Moderate (4-6) Polyethylene Glycol (Polyethylene Glycol 3350 17 Gm Powder) 17 gm PO QDAY [facility] Sodium Chloride (Sodium Chloride 0.9% 10 Ml Flush Syringe) 10 ml IV BID [facility] Sodium Chloride (Sodium Chloride 0.9% 10 Ml Flush Syringe) 10 ml IV PRN PRN PRN Reason: LINE FLUSH Sulfasalazine (Sulfasalazine 500 Mg Tab) 500 mg PO BID [facility] Last Admin: 09/08/21 23:29 Dose: 500 mg Documented by: Tramadol HCl (Tramadol 50 Mg Tab) 50 mg PO Q6HR PRN PRN Reason: Pain, Moderate (4-6) Physical Examination - Vital Signs Vital Signs: Vital Signs Temp Pulse Resp BP Pulse Ox 98.3 F 74 20 143/65 96 09/08/21 16:15 09/08/21 16:15 09/08/21 16:15 09/08/21 16:15 09/08/21 16:15 - Constitutional General appearance: comfortable - EENT EENT: Present: PERRL, mucous membranes moist - Respiratory Respiratory: Present: chest non-tender, lungs clear, rhonchi - Cardiovascular Cardiovascular: Present: regular rate, normal S1, normal S2 Extremities: Present: no peripheral edema bilatateraly, no clubbing, cyanosis - Gastrointestinal Gastrointestinal: Present: normoactive bowel sounds - Integumentary Integumentary: Present: normal - Neurologic Cranial nerve examination: PERRL, EOMI, intact Speech examination: intact Sensorimotor examination: intact, other (positive tinnel sign at wrist) Detailed motor examination: grossly full strength in - Level of Consciousness 1a. Level of Consciousness: alert/keenly responsive - LOC Questions 1b. LOC Questions: answers both correctly - LOC Command 1c. LOC Commands: performs tasks correctly - Best Gaze 2. Best Gaze: normal - Visual 3. Visual: no visual loss - Facial Palsy 4. Facial Palsy: normal symmetrical movement - Motor Arm 5a. Motor Arm Left: no drift 5b. Motor Arm Right: no drift - Motor Leg 6a. Motor Leg Left: no drift 6b. Motor Leg Right: no drift - Limb Ataxia 7. Limb Ataxia: absent - Sensory 8. Sensory: normal - Best Language 9. Best Language: no aphasia - Dysarthria 10. Dysarthria: normal - Extinction and Inattention 11. Extinction/Inattention: no abnormality - Scoring Total Score: 0 Stroke Severity: No Stroke Symptoms Results - Laboratory Findings CBC and BMP: 09/09/21 04:32 09/09/21 04:32 Abnormal Lab Findings: Abnormal Labs 09/08/21 09/08/21 09/09/21 16:48 16:48 04:32 Plt Count 138 L Thrombin Time 14.8 L Potassium Creatinine 0.5 L Glucose 114 H Albumin 09/09/21 04:32 Plt Count Thrombin Time Potassium 3.5 L Creatinine 0.5 L Glucose Albumin 3.5 L Assessment and Plan Assessment and Plan Advance Directives: Yes (Full code) VTE prophylaxis?: Chemical Plan of care discussed with patient/family: Yes - Patient Problems # two days Hx of intermittent right facial numbness ,etiology is not clear TIA can not be excluded -NIH#0 -she is not a candidate for thrombectomy nor TPA -CT brain is unremarkable -CTA pending -MRI brain is pending -Lipitor 40 mg , LDL# pending -Increse ASA to 325 mg daily -cardiac monitoring -echo is pending # Hypertension -Continue antihypertensives and adjust medications # Right hand numbness -Tinnel sign is positive at right wrist -No focal weakness -check A1C,TSH,b12 -Consider NCS out pt. # Morbid obesity -Patient to be referred to bariatric surgery at the time of discharge # DVT prophylaxis -On heparin and GI prophylaxis
--- NOTE | 2021-09-09 09:32 | Electrocardiograph Report ---
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
[2021-09-09] MEDS ORDERED: ASPIRIN EC 81 MG TAB PO SCH ×2 (10:00→10:09)
--- NOTE | 2021-09-09 12:28 | Cat Scan Report ---
CT angio neck, CT angio head HISTORY: CVA OMNI 350 100ML COMPARISON: 09/08/2021 CT head TECHNIQUE: CTA of the neck and head is performed after IV contrast. 3-D/MIP reformats were postproces sed. Percentage stenosis is determined by direct quantitative measurements of diseased internal [place] artery diameter compared with normal distal internal carotid artery reference segments or by crit eria similar to NASCET where applicable. All CT scans at this location are performed using CT dose re duction for ALARA by means of automated exposure control. FINDINGS: CTA NECK: Aortic arch: No significant abnormality. Cervical vertebral arteries: No occlusion or hemodynamically significant stenosis. Common Carotid arteries: No occlusion or hemodynamically significant stenosis. Internal carotid arteries: No occlusion or hemodynamically significant stenosis. CTA HEAD: Intracranial internal carotid arteries: No occlusion or significant stenosis. Anterior cerebral arteries: No occlusion or significant stenosis. Middle cerebral arteries: No occlusion or significant stenosis. Intracranial vertebral arteries: No occlusion or significant stenosis. Basilar artery: No occlusion or significant stenosis. Posterior cerebral arteries: No occlusion or significant stenosis. 6 mm anterior communicating artery aneurysm. Additional findings: There is a 2.4 cm left mid pole thyroid nodule. IMPRESSION: 1. CTA NECK: No occlusion or significant stenosis of the carotid or vertebral arteries. 2. CTA HEAD: 6 mm anterior communicating artery aneurysm. 3. 2.4 cm left midpole thyroid nodule. This was seen on left thyroid ultrasound performed same day an d is partially cystic and solid and does not meet criteria for follow-up or biopsy. Signer Name: Miles Hicks MD Signed: 09/09/2021 12:23 PM Workstation Name: [id number]
[2021-09-09 13:09] LABS: Chol/HDL Ratio 4.47 %
--- NOTE | 2021-09-09 13:14 | Vascular Lab Report ---
DUPLEX DOPPLER ULTRASOUND CAROTID, BILATERAL INDICATION / CLINICAL INFORMATION: TIA. COMPARISON: None available. FINDINGS: RIGHT CAROTID: - PLAQUE ESTIMATE (%): < 50% - CCA velocity: 38 cm/sec. - ICA peak systolic velocity: 80 cm/sec. - ICA/CCA PSV Ratio: Less than 2.0 Right Vertebral Artery: Antegrade flow. LEFT CAROTID: Focal mild plaque in the bulb. - PLAQUE ESTIMATE (%): < 50% - CCA velocity: 71 cm/sec. - ICA peak systolic velocity: 70 cm/sec. - ICA/CCA PSV Ratio: Less than 2.0 Left Vertebral Artery: Antegrade flow. IMPRESSION: 1. Right Internal Carotid Artery: Less than 50% diameter stenosis. 2. Left Internal Carotid Artery: Less than 50% diameter stenosis. 3. Incidental note made of abutting left thyroid nodules, the larger of which measures 2.2 cm with so lid and cystic appearance and internal microcalcification which is suspicious. Recommend dedicated th yroid ultrasound for further evaluation. Velocity criteria are extrapolated from diameter data as defined by the Society of Radiologists in Ul trasound Consensus Conference, Radiology 2003; 229;340-346. NO STENOSIS (NORMAL) - Plaque = none; ICA PSV < 125 cm/sec; ICA/CCA PSV Ratio < 2.0 <50% STENOSIS - Plaque < 50%; ICA PSV < 125 cm/sec; ICA/CCA PSV Ratio < 2.0 50-69% STENOSIS - Plaque > 50%; ICA PSV = 125-230 cm/sec; ICA/CCA PSV Ratio = 2.0-4.0 >70% BUT <100% STENOSIS - Plaque > 50%; ICA PSV > 230 cm/sec; ICA/CCA PSV Ratio > 4.0 NEAR OCCLUSION - Plaque = visible lumen; ICA PSV = high/low/none; ICA/CCA PSV Ratio = variable TOTAL OCCLUSION - Plaque = no lumen; ICA PSV = none; ICA/CCA PSV Ratio = N/A Signer Name: Hermilo Lundberg MD Signed: 09/09/2021 1:10 PM Workstation Name: [id number]
[2021-09-09] MEDS: sulfaSALAzine 500 MG TAB PO SCH ×2 (14:00→22:20)
[2021-09-09] MEDS: HEPARIN 5,000 UNIT/1 ML VIAL SUB-Q SCH ×2 (14:00→21:57)
[2021-09-09] MEDS: FAMOTIDINE 20 MG/2 ML INJ IV SCH ×2 (14:01→21:57)
[2021-09-09] MEDS: CHLORTHALIDONE 25 MG TAB PO SCH (14:01)
[2021-09-09] MEDS: LISINOPRIL 40 MG TAB PO SCH (14:01)
[2021-09-09] MEDS: POLYETHYLENE GLYCOL 3350 17 GM POWDER PO SCH (14:01)
[2021-09-09] MEDS: allopurinoL 300 MG TAB PO SCH (15:55)
[2021-09-09] MEDS: ASPIRIN EC 325 MG TAB PO SCH (15:55)
--- NOTE | 2021-09-09 16:27 | Progress Note ---
Assessment and Plan - Patient Problems (1) TIA (transient ischemic attack) Current Visit: Yes Status: Acute Plan to address problem: Patient had right facial numbness and right-sided numbness After few hours in the emergency room the symptoms are nearly resolved TIA work-up Carotid duplex scan and echocardiogram and MRI if possible Probable discharge tomorrow (2) Hypertension Current Visit: No Status: Chronic Qualifiers: Hypertension type: essential hypertension Qualified Code(s): I10 - Essential (primary) hypertension Plan to address problem: Continue antihypertensives and adjust medications (3) Morbid obesity Current Visit: No Status: Chronic Plan to address problem: Patient to be referred to bariatric surgery at the time of discharge (4) DVT prophylaxis Current Visit: No Status: Acute Plan to address problem: On heparin and GI prophylaxis Subjective Date of service: 09/09/21 Objective - Constitutional Vitals: Vital Signs - 12hr 09/09/21 09/09/21 09/09/21 04:56 10:00 11:31 Pulse Rate 55 L 69 O2 Sat by Pulse 99 Oximetry General appearance: Present: no acute distress, well-nourished - EENT Eyes: PERRL, EOM intact ENT: hearing intact, clear oral mucosa Ears: bilateral: normal - Neck Neck: supple, normal ROM - Respiratory Respiratory effort: normal Respiratory: bilateral: CTA - Breasts Breasts: normal - Cardiovascular Rhythm: regular Heart Sounds: Present: S1 & S2. Absent: gallop, rub Extremities: pulses intact, No edema, normal color, Full ROM - Gastrointestinal General gastrointestinal: Present: soft, non-tender, non-distended, normal bowel sounds - Genitourinary Female genitourinary: normal - Integumentary Integumentary: clear, warm, dry - Musculoskeletal Musculoskeletal: 1, strength equal bilaterally - Neurologic Neurologic: moves all extremities - Psychiatric Psychiatric: memory intact, appropriate mood/affect, intact judgment & insight - Labs CBC & Chem 7: 09/09/21 04:32 09/09/21 04:32 Labs: Abnormal lab results 09/08/21 09/08/21 09/09/21 Range/Units 16:48 16:48 04:32 Plt Count 138 L (140-440) K/mm3 Thrombin Time 14.8 L (15.1-19.6) Sec. Potassium (3.6-5.0) mmol/L Creatinine 0.5 L (0.6-1.2) mg/dL Glucose 114 H (65-100) mg/dL Albumin (3.9-5) g/dL Triglycerides (2-149) mg/dL HDL Cholesterol (40-59) mg/dL 09/09/21 09/09/21 Range/Units 04:32 04:32 Plt Count (140-440) K/mm3 Thrombin Time (15.1-19.6) Sec. Potassium 3.5 L (3.6-5.0) mmol/L Creatinine 0.5 L (0.6-1.2) mg/dL Glucose (65-100) mg/dL Albumin 3.5 L (3.9-5) g/dL Triglycerides 150 H (2-149) mg/dL HDL Cholesterol 36 L (40-59) mg/dL
[2021-09-09] MEDS: HYDROmorphone 1 MG/1 ML INJ IV PRN (22:24)
[2021-09-10] MEDS: GABAPENTIN 300 MG CAP PO SCH ×2 (05:20→14:20)
[2021-09-10] MEDS: sulfaSALAzine 500 MG TAB PO SCH (09:40)
[2021-09-10] MEDS: LISINOPRIL 40 MG TAB PO SCH (09:40)
[2021-09-10] MEDS: ASPIRIN EC 325 MG TAB PO SCH (09:40)
[2021-09-10] MEDS: allopurinoL 300 MG TAB PO SCH (09:41)
[2021-09-10] MEDS: HEPARIN 5,000 UNIT/1 ML VIAL SUB-Q SCH (09:41)
[2021-09-10] MEDS: FAMOTIDINE 20 MG/2 ML INJ IV SCH (09:41)
[2021-09-10] MEDS: POLYETHYLENE GLYCOL 3350 17 GM POWDER PO SCH (09:42)
[2021-09-10] MEDS: traMADol 50 MG TAB PO PRN ×2 (09:50→16:39)
--- NOTE | 2021-09-10 11:05 | Progress Note ---
Assessment and Plan Assessment and Plan Advance Directives: Yes (Full code) VTE prophylaxis?: Chemical Plan of care discussed with patient/family: Yes - Patient Problems # two days Hx of intermittent right facial numbness ,etiology is not clear TIA can not be excluded -NIH#0 -she is not a candidate for thrombectomy nor TPA -CT brain is unremarkable -CTA brain and neck showed 6mm anterior communicating a. aneurysm ,2.4 cm thy roid cyst -MRI brain is pending -Lipitor 40 mg , LDL# 98 -Decrese ASA to 81 mg and neurosurgical assessment -cardiac monitoring -echo is with Ef#55% # Hypertension -Continue antihypertensives and adjust medications # Right hand numbness -Tinnel sign is positive at right wrist -No focal weakness -check A1C,TSH,b12 noted -Consider NCS out pt. -wrist splint apply at night # Morbid obesity -Patient to be referred to bariatric surgery at the time of discharge # DVT prophylaxis -On heparin and GI prophylaxis Subjective Date of service: 09/10/21 Principal diagnosis: right side numbness intermittent Interval history: she is doing better , numbness right side fluctuate right hand numbness only when asleep MRI brain is pending -CTA brain and neck is remarkable for 6 mm anterior communicating a. aneurysm -thyroid nodule #2.4 cm -LDL# 98 -echo Ef# 55% -On ASA and Lipitor Objective - Vital Sign Vital Signs - 12hr 09/09/21 09/10/21 09/10/21 23:47 03:23 07:08 Temperature 97.8 F 97.8 F 97.2 F L Pulse Rate 70 63 59 L Respiratory 16 16 20 Rate Blood Pressure 139/80 133/75 142/82 O2 Sat by Pulse 93 98 98 Oximetry 09/10/21 09:40 Temperature Pulse Rate Respiratory Rate Blood Pressure 142/82 O2 Sat by Pulse Oximetry - General Apperance Constitutional: comfortable - EENT EENT: PERRL, mucous membranes moist - Respiratory Respiratory: lungs clear, normal breath sounds - Cardiovascular Cardiovascular: regular rate, normal S1, normal S2 Extremities: no peripheral edema bilat, no clubbing, cyanosis - Gastrointestinal Gastrointestinal: normoactive bowel sounds - Integumentary Integumentary: normal - Neurologic Cranial nerve examination: PERRL, EOMI, intact Speech examination: intact Detailed motor examination: grossly full strength in, other (positive tinnel sign at wrist ) - Laboratory Findings CBC and BMP: 09/09/21 04:32 09/09/21 04:32 Abnormal Lab Findings: Abnormal Labs 09/08/21 09/08/21 09/09/21 16:48 16:48 04:32 Plt Count 138 L Thrombin Time 14.8 L Potassium Creatinine 0.5 L Glucose 114 H Albumin Triglycerides HDL Cholesterol 09/09/21 09/09/21 04:32 04:32 Plt Count Thrombin Time Potassium 3.5 L Creatinine 0.5 L Glucose Albumin 3.5 L Triglycerides 150 H HDL Cholesterol 36 L
[2021-09-10] MEDS ORDERED: ASPIRIN EC 325 MG TAB PO SCH (11:11)
--- NOTE | 2021-09-10 11:24 | Event Note ---
Date: 09/10/[address] Brown-neurosurgery at 1122 hrs. regarding 6 mm anterior communicating aneurysm. Patient can be followed as outpatient with Dr. Brown Patient informed about the 6 mm aneurysm . And related reports were given to her
[2021-09-10] MEDS: CHLORTHALIDONE 25 MG TAB PO SCH (12:52)
[2021-09-10 16:22] VITALS: BP 162/71
--- NOTE | 2021-09-10 17:52 | Discharge Summary ---
Providers - Providers Date of Admission: 09/08/21 18:55 Date of discharge: 09/10/21 Attending physician: LU GOLDBERG 09/08/21 22:09 Consult to Physician [CONS] Routine Comment: Consulting Provider: LAURE SZYMANSKI Physician Instructions: Reason For Exam: tia 09/10/21 11:17 Consult to Physician [CONS] Routine Comment: Consulting Provider: GAUDENCIO RAMIREZ II Physician Instructions: Reason For Exam: Communicating aneurysm Primary care physician: CARPENTRY FOREMAN Hospitalization Condition: Fair Hospital course: Patient admitted for right facial numbness and hypertension Post admission patient did well Work-up was negative Head CT showed 6 mm communicating and anterior communicating aneurysm which is not significant and was referred to neurosurgery discussed with neurosurgery patient to follow-up as outpatient Assessment and Plan - Patient Problems (1) TIA (transient ischemic attack) Current Visit: Yes Status: Acute Plan to address problem: Patient had right facial numbness and right-sided numbness After few hours in the emergency room the symptoms are nearly resolved TIA work-up Carotid duplex scan and echocardiogram and MRI if possible Work-up was negative including echocardiogram c neck CTA and head CTA 6 mm anterior communicating aneurysm was presenton head CTa Patient was given the report Patient is asked to follow-up with Dr. Ramirez III neurosurgery as follow-up (2) Hypertension Current Visit: No Status: Chronic Qualifiers: Hypertension type: essential hypertension Qualified Code(s): I10 - Essential (primary) hypertension Plan to address problem: Continue antihypertensives and adjust medications (3) Morbid obesity Current Visit: No Status: Chronic Plan to address problem: Patient to be referred to bariatric surgery at the time of discharge (4) DVT prophylaxis Current Visit: No Status: Acute Plan to address problem: On heparin and GI prophylaxis Disposition: 01 HOME / SELF CARE / HOMELESS Final Discharge Diagnosis (Prints w/discharge instructions): TIA. Hypertension. Brain aneurysm. Obesity Time spent for discharge: 35 minutes - Discharge Diagnoses (1) TIA (transient ischemic attack) Status: Acute (2) Hypertension Status: Chronic Qualifiers: Hypertension type: essential hypertension Qualified Code(s): I10 - Essential (primary) hypertension (3) Morbid obesity Status: Chronic (4) DVT prophylaxis Status: Acute Core Measure Documentation - Palliative Care Palliative Care/ Comfort Measures: Not Applicable - Core Measures Any of the following diagnoses?: none Exam - Constitutional Vitals: Temp Pulse Resp BP Pulse Ox 97.9 F 66 18 162/71 96 09/10/21 16:11 09/10/21 16:11 09/10/21 16:11 09/10/21 16:11 09/10/21 16:11 General appearance: Present: no acute distress, well-nourished - EENT Eyes: Present: PERRL ENT: hearing intact, clear oral mucosa - Neck Neck: Present: supple, normal ROM - Respiratory Respiratory effort: normal Respiratory: bilateral: CTA - Cardiovascular Heart rate: 78 Heart Sounds: Present: S1 & S2. Absent: rub, click - Extremities Extremities: pulses symmetrical, No edema Peripheral Pulses: within normal limits - Abdominal General gastrointestinal: Present: soft, non-tender, non-distended, normal bowel sounds Female genitourinary: Present: normal - Integumentary Integumentary: Present: clear, warm, dry - Musculoskeletal Musculoskeletal: gait normal, strength equal bilaterally - Psychiatric Psychiatric: appropriate mood/affect, intact judgment & insight - Neurologic Neurologic: CNII-XII intact, moves all extremities Plan Activity: no restrictions Diet: low salt Follow up with: DARCIE MANLEY MD [Primary Care Provider] - 3-5 Days GAUDENCIO RAMIREZ II, MD [Staff Physician] - 7 Days WILLIE TRUJILLO MD [Staff Physician] - 7 Days
[2021-09-11] MEDS ORDERED: ASPIRIN EC 81 MG TAB PO SCH (10:00)
== END 2021-09-10 19:50 | disposition home or self-care (01) ==
LOC: ED 15:55 → 4A 18:55
PROVIDERS: ADMIT Internal Medicine; ATTEND Internal Medicine
DX: G45.9 Transient cerebral ischemic attack, unspecified (principal); I10 Essential (primary) hypertension; E66.01 Morbid (severe) obesity due to excess calories; M19.90 Unspecified osteoarthritis, unspecified site; J45.909 Unspecified asthma, uncomplicated; R29.818 Other symptoms and signs involving the nervous system; Z86.73 Personal history of transient ischemic attack (TIA), and cerebral infarction without residual deficits; Z90.49 Acquired absence of other specified parts of digestive tract; Z79.899 Other long term (current) drug therapy; Z98.890 Other specified postprocedural states; Z87.891 Personal history of nicotine dependence; Z79.82 Long term (current) use of aspirin; Z68.42 Body mass index [BMI] 45.0-49.9, adult
CPT/HCPCS: 36415; 70450; 70496; 70498; 80053; 80061; 82607; 84443; 85025; 85610; 85670; 85730; 93005; 93306; 93880; 96372; 96374; 96375; 96376; 99285; A9270; G0378; J1170; J1644; J7030; Q9967

== ENCOUNTER 2022-01-20 14:58 | Inpatient (IN) | payer MEDICARE ==
[2022-01-20] MEDS ORDERED: HYDROcodone/ACETAMINOPHEN 5-325 MG TAB PO PRN (17:40)
[2022-01-20] MEDS ORDERED: ALBUTEROL 2.5 MG/3 ML NEBU IH PRN (17:57)
[2022-01-20] MEDS ORDERED: ONDANSETRON 4 MG ODT TAB PO PRN (17:59)
[2022-01-20] MEDS ORDERED: PHENOL 1.4% 177 ML BOTTLE MM PRN (18:02)
[2022-01-20] MEDS ORDERED: hydrALAZINE 20 MG/1 ML INJ IV PRN (18:12)
[2022-01-20] MEDS: FAMOTIDINE 20 MG TAB PO SCH (22:36)
[2022-01-20] MEDS: GABAPENTIN 300 MG CAP PO SCH (22:36)
[2022-01-20] MEDS: sulfaSALAzine 500 MG TAB PO SCH (22:37)
[2022-01-20] MEDS: ZOLPIDEM 5 MG TAB PO PRN (22:58)
[2022-01-20] MEDS: traMADol 50 MG TAB PO PRN (23:00)
[2022-01-21 05:01] LABS: Basophils % (Auto) 0.4 % (0.0-1.8); Eosinophils # (Auto) 0.2 K/mm3 (0.0-0.4); Eosinophils % (Auto) 2.6 % (0.0-4.3); Hematocrit 39.3 % (30.3-42.9); Hemoglobin 12.8 gm/dl (10.1-14.3); Lymphocytes # (Auto) 1.6 K/mm3 (1.2-5.4); Lymphocytes % (Auto) 26.8 % (13.4-35.0); Mean Corpuscular HGB Conc 33 % (30-34); Mean Corpuscular Volume 94 fl (79-97); Monocytes # (Auto) 0.5 K/mm3 (0.0-0.8); Monocytes % (Auto) 8.9 % (0.0-7.3); Platelet Count 158 K/mm3 (140-440); Red Blood Count 4.17 M/mm3 (3.65-5.03); Red Cell Distribution Width 14.6 % (13.2-15.2)
[2022-01-21 05:22] LABS: Alanine Aminotransferase 15 units/L (7-56); Albumin 3.3 g/dL (3.9-5); Blood Urea Nitrogen 11 mg/dL (7-17); Calcium 8.6 mg/dL (8.4-10.2); Hemolysis Index 84
[2022-01-21 05:25] LABS: BUN/Creatinine Ratio 22
[2022-01-21] MEDS: GABAPENTIN 300 MG CAP PO SCH ×3 (06:46→22:01)
[2022-01-21] MEDS: allopurinoL 100 MG TAB PO SCH (09:39)
[2022-01-21] MEDS: VALSARTAN 160MG TAB PO SCH (09:39)
[2022-01-21] MEDS: POTASSIUM CHLORIDE ER 10 MEQ TAB PO SCH (09:39)
[2022-01-21] MEDS: FAMOTIDINE 20 MG TAB PO SCH ×2 (09:39→22:00)
[2022-01-21] MEDS: ENOXAPARIN 40 MG/0.4 ML INJ SUB-Q SCH (09:39)
[2022-01-21] MEDS: sulfaSALAzine 500 MG TAB PO SCH ×2 (09:39→22:01)
[2022-01-21] MEDS ORDERED: hydroCHLOROthiazide 12.5 MG CAP PO SCH (10:00)
--- NOTE | 2022-01-21 10:27 | History and Physical Report ---
History of Present Illness Date: 01/21/22 Date of admission: 01/20/22 21:44 Chief Complaint: Debility after hernia repair History of present illness: 67-year-old female who presented to the hospital after 2 days of abdominal pain accompanied with nausea and vomiting and a history of ventral hernia and diverticulitis. Work-up in the ER resulted in impression of small bowel obstruction and surgery was consulted. CT abdomen was ordered, IV fluids and IV antibiotics were given and the patient had an NG tube placed on suction and was made n.p.o. in preparation for OR. On 01/16 she underwent diagnostic lap with lysis of adhesions, open reduction of incarcerated small bowel and primary repair of incisional hernia by Dr Black. Abdominal binder was placed (on when OOB), patient was advanced to clear liquid diet without complication and then advance to GI soft diet. No strenuous lifting/activity. Patient has not had BM since admission but is passing flatus, denies N/V over last couple of days. Patient has morbid obesity with BMI greater than 45, typically is wheelchair dependent for mobility due to severe b/l hip OA and is able to transfer independently. Currently the patient is experiencing deficits with ADLs and self-care as well as transfers. Patient was seen by therapy and determined to be a good rehab candidate for short-term stay in order to return the patient to her premorbid abilities to independently perform transfers and self-care. After the patient was medically stabilized they were transferred for further rehabilitation. All available medical records have been reviewed. Plan of care was discussed with patient. Past History Past Medical History: arthritis, hypertension, hyperlipidemia, other (Chronic pain, gout, possibole TIA) Past Surgical History: cholecystectomy, hernia repair, Other (Vergara's for perforated diverticulitis with colostomy reversal) Social history: Lives alone, full code. denies: smoking (Former smoker), alcohol abuse (Occasional alcohol use), prescription drug abuse, IV drug use (Remote history) Family history: diabetes, hypertension, other (Heart failure) Medications and Allergies Allergies Allergy/AdvReac Type Severity Reaction Status Date / Time Penicillins Allergy Swelling Verified 01/18/22 11:00 Home Medications Medication Instructions Recorded Confirmed Last Taken Type polyethylene glycoL 3350 [Miralax 17 gm PO QDAY #30 packet 06/17/16 03/19/22 11/04/21 Rx 3350] Aspirin EC [Halfprin EC] 81 mg PO DAILY 10/12/18 01/21/22 09/08/21 History AtorvaSTATin [Lipitor] 40 mg PO QHS #30 tablet 09/10/21 01/21/22 Unknown Rx Valsartan/Hydrochlorothiazide 1 each PO QDAY #30 tablet 09/10/21 01/21/22 Unknown Rx [Valsartan-Hctz 160-12.5 mg Tab] Lidocain2.5%/Prilocai2.5% [Emla] 1 applic TP QDAY 01/18/22 01/21/22 Unknown History Potassium Chloride [Klor-Con 10] 10 meq PO QDAY 01/18/22 01/21/22 Unknown History allopurinoL [Zyloprim] 100 mg PO QPM 01/18/22 01/21/22 Unknown History Enoxaparin 40 mg SUB-Q DAILY syringe 01/19/22 01/21/22 Unknown Rx Gabapentin 300 mg PO Q8HR capsule 01/19/22 01/21/22 Unknown Rx Multivitamin Tab W-MINERAL 1 each PO QDAY tablet 01/19/22 01/21/22 Unknown Rx [Multiple Vitamin/Mineral (Theragran M)] Zolpidem [Ambien] 5 mg PO QHS PRN tablet 01/19/22 01/21/22 Unknown Rx sulfaSALAzine [Azulfidine] 500 mg PO BID tablet 01/19/22 01/21/22 Unknown Rx traMADoL [Ultram 50 MG tab] 100 mg PO Q6H PRN tablet 01/19/22 01/21/22 Unknown Rx Active Meds: Active Medications Acetaminophen (Acetaminophen 325 Mg Tab) 650 mg PO Q6H PRN PRN Reason: Pain MILD(1-3)/Fever >100.5/WOO Hydrocodone Bitart/Acetaminophen (Hydrocodone/Acetaminophen 5-325 Mg Tab) 1 each PO Q6H PRN PRN Reason: Pain , Severe (7-10) Albuterol (Albuterol 2.5 Mg/3 Ml Nebu) 2.5 mg IH Q4HRT PRN PRN Reason: Shortness Of Breath Allopurinol (Allopurinol 100 Mg Tab) 100 mg PO QDAY [facility] Last Admin: 01/21/22 09:39 Dose: 100 mg Atorvastatin Calcium (Atorvastatin 40 Mg Tab) 40 mg PO QHS [facility] Last Admin: 01/20/22 22:36 Dose: 40 mg Enoxaparin Sodium (Enoxaparin 40 Mg/0.4 Ml Inj) 40 mg SUB-Q QDAY [facility] Last Admin: 01/21/22 09:39 Dose: 40 mg Famotidine (Famotidine 20 Mg Tab) 20 mg PO BID [facility] Last Admin: 01/21/22 09:39 Dose: 20 mg Gabapentin (Gabapentin 300 Mg Cap) 300 mg PO Q8HR [facility] Last Admin: 01/21/22 06:46 Dose: 300 mg Hydralazine HCl (Hydralazine 20 Mg/1 Ml Inj) 10 mg IV Q4H PRN PRN Reason: Hypertension Hydrochlorothiazide (Hydrochlorothiazide 12.5 Mg Cap) 12.5 mg PO QDAY [facility] Last Admin: 01/21/22 09:39 Dose: 12.5 mg Ondansetron HCl (Ondansetron 4 Mg Odt Tab) 4 mg PO Q8H PRN PRN Reason: Nausea And Vomiting Phenol (Phenol 1.4% 177 Ml Bottle) 1 spray MM PRN PRN PRN Reason: Sore Throat Potassium Chloride (Potassium Chloride Er 10 Meq Tab) 10 meq PO QDAY [facility] Last Admin: 01/21/22 09:39 Dose: 10 meq Sulfasalazine (Sulfasalazine 500 Mg Tab) 500 mg PO Q12HR [facility] Last Admin: 01/21/22 09:39 Dose: 500 mg Tramadol HCl (Tramadol 50 Mg Tab) 100 mg PO Q6H PRN PRN Reason: Pain, Moderate (4-6) Last Admin: 01/20/22 23:00 Dose: 100 mg Valsartan (Valsartan 160mg Tab) 160 mg PO DAILY [facility] Last Admin: 01/21/22 09:39 Dose: 160 mg Zolpidem Tartrate (Zolpidem 5 Mg Tab) 5 mg PO QHS PRN PRN Reason: Sleep Last Admin: 01/20/22 22:58 Dose: 5 mg Review of Systems All systems: negative (ROS negative for 10 systems except as noted below with pertinent positives and negatives.) Constitutional: no fever, no chills Ears, nose, mouth and throat: no decreased hearing, no hoarseness, no headache Cardiovascular: no chest pain, no rapid/irregular heart beat, no edema Respiratory: no cough, no shortness of breath Gastrointestinal: abdominal pain (Appropriate tenderness postsurgical), constipation, no nausea, no vomiting Musculoskeletal: limitation of motion, arthritis Integumentary: pruritis, wounds (Surgical, healing), no rash Neurological: no paralysis, no weakness, no numbness Psychiatric: no memory loss, no change in appetite Exam - Exam Narrative exam: MUSCULOSKELETAL SPECIALTY EXAM CONSTITUTIONAL: Well developed, well nourished, appropriately groomed, obese LYMPHATIC: No appreciable abnormalities palpable in neck RESPIRATORY: Clear to auscultation bilaterally, no increased work of breathing CARDIOVASCULAR: Regular Rate/ Rhythm, no swelling, edema or tenderness in BUE or BLE. Pulses palpable in all extremities. All extremities warm. GI: + bowel sounds, soft, NTTP, nondistended. INTEGUMENTARY: Normal, no lesion, rash, masses or bruising noted in extremities. Surgical incision clean dry and intact with surgical glue MUSCULOSKELETAL: BUE and BLE normal without defect, crepitus, subluxation, effusion, arthritic ch anges or TTP. BUE 4+/5, good ROM, with normal tone. BLE 4-/5 decreased ROM, with normal tone, limited by pain at hip joints NEURO: CN 2-12 grossly intact. Sensation intact in all extremities. Reflexes 1+ bilaterally at biceps, brachioradialis and patella. No clonus at ankles. Coordination intact in BUE. No tremor noted in 4 extremities. POSTURE and GAIT: Sitting posture good. Balance and gait deferred until seen with therapy. Decreased gait at home but is able to take a few steps PSYCH: Alert, oriented x3, affect appears normal. Insight appears intact. - Constitutional Vitals: Vital Signs - 12hr 01/21/22 01/21/22 01/21/22 00:00 04:26 07:38 Temperature 97.8 F 97.6 F 97.9 F Pulse Rate 64 59 L 59 L Respiratory 18 18 18 Rate Blood Pressure 155/79 168/76 Blood Pressure 146/79 [Right] O2 Sat by Pulse 92 94 91 Oximetry 01/21/22 07:45 Temperature Pulse Rate Respiratory Rate Blood Pressure Blood Pressure [Right] O2 Sat by Pulse 94 Oximetry - Labs CBC & Chem 7: 01/21/22 04:07 01/21/22 04:07 Labs: Laboratory Results - last 72 hr 01/21/22 01/21/22 04:07 04:07 WBC 5.9 RBC 4.17 Hgb 12.8 Hct 39.3 MCV 94 MCH 31 MCHC 33 RDW 14.6 Plt Count 158 Lymph % (Auto) 26.8 [place] % (Auto) 8.9 H Eos % (Auto) 2.6 Baso % (Auto) 0.4 Lymph # (Auto) 1.6 [place] # (Auto) 0.5 Eos # (Auto) 0.2 Baso # (Auto) 0.0 Seg Neutrophils % 61.3 Seg Neutrophils # 3.6 Sodium 139 Potassium 3.9 Chloride 100.7 Carbon Dioxide 28 Anion Gap 14 BUN 11 Creatinine 0.5 L Estimated GFR > 60 BUN/Creatinine Ratio 22 Glucose 96 Calcium 8.6 Total Bilirubin 0.20 AST 25 ALT 15 Alkaline Phosphatase 49 Total Protein 6.0 L Albumin 3.3 L Albumin/Globulin Ratio 1.2 Assessment and Plan Assessment and plan: Patient was assessed and evaluated for Acute Inpatient Rehab Unit. Due to the patients above-mentioned medical complexity, along with decreased fu nctional mobility and self care, this patient continues to require and be appropriate for a comprehensive, multidisciplinary [id number] rehabilitation program. These needs cannot be met in an outpatient or other less intensive setting. The patient would continue to benefit from skilled therapy intervention for at least 3 hours per day, five days a week, with techniques specific to the needs of the patient to improve function, activities of daily living, and reintegration into the community. The patient continues to require: -- OT to improve ROM, self-care, and learn use of adaptive equipment -- PT to improve strength and balance, functional transfers, and ambulation with energy conservation techniques to improve functional mobility -- 24 hour RN to ensure and prevent skin breakdown, promote progressive independence while ensuring safety, ensure education regarding medications, and incorporation of the rehabilitation at the bedside -- 24 hour Screw Machine Setter to coordinate this interdisciplinary program, and to manage/prevent complications as a result of the patients medical comorbidities. -Plan of care by day 4 -Weekly team conferences With such a program, there is a reasonable certainty that the goals individualized for this patient can be achieved within the specified length of stay. Status post incarcerated hernia repair: Patient has not had a bowel movement since admission to acute care side. Is passing flatus. Stool softener started, tolerating GI soft foods without nausea or vomiting. Wound clean dry and intact without signs of infection. Abdominal binder on when up. No strenuous activity or lifting. Hypertension, uncontrolled: Currently on valsartan and HCTZ. Blood pressures have been elevated since admission, will increase HCTZ and monitor for effect. Goal less than 140/80. Monitor and adjust medications as needed Hypokalemia: Continue replacement through Sunday. We will recheck labs. Magnesium was within normal limits prior to transfer. Morbid obesity: BMI 48.5 on admission to rehab. Counseled patient on weight loss which would help with both hernia and osteoarthritis of the hips. Discussed benefits of weight loss and availability of elective hip replacement. Suspected prior TIA: Patient previously started on aspirin and statin due to TIA symptoms in September 2021. Not currently taking aspirin but is taking sulfasalazine, will restart low dose ASA. Did not see a previous hemoglobin A1c. Will recheck cholesterol panel and hemoglobin A1c at next scheduled lab. Constipation: Continue to monitor for bowel movement. Patient is passing flatus and denies any nausea or vomiting currently. Appetite remains good. Stool softener and bowel medications made available. Osteoarthritis bilateral hips: Patient currently taking sulfasalazine for pain control per her data analysis manager. Has investigated bilateral hip arthroplasty in the past however has not moved forward with it. Continue pain control, discussed with patient benefits of weight loss and possible surgical intervention ADL dysfunction: OT will work on improving ability to perform ADLs (including assistive devices) to increase independence and decrease caregiver burden and improve functional transfers and mobility training. Difficulty walking: PT will work on gait training and proper use of assistive devices and advance as appropriate to use of stairs and outside ambulation on uneven surfaces. Unsteadiness on feet: PT will work on improving static and dynamic sitting and standing balance as well as proper use of assistive devices to decrease risk of falls. Abnormality of gait: PT will work to improve safety and efficiency of gait through neuromotor training and gait training along with instruction on proper use of assistive devices. Muscle weakness: PT & OT will work on strengthening exercises to improve functional strength including mixture of closed and open kinetic chain exercises. Debility: PT & OT will work on improving overall functional status to improve participation with ADLs, mobility and social involvement. Fatigue: PT & OT will work on improving endurance through aerobic exercises and therapeutic activity while monitoring patients tolerance for activity and vital signs as needed. DVT ppx: Lovenox Pain: Continue physical modalities in therapy and pain medications as needed to achieve functional pain control. Sleep: Monitor and address as needed. Bowel: Monitor and address as needed. Appetite: Monitor and address as needed. Discharge planning: Pending therapy progress and care plan meeting. Will continue discussion with therapy team, SW, patient and family. Restrictions/ Precautions: Falls, no strenuous lifting or activity, abdominal binder on when out of bed WB status: FWB Functional Hx: ADLs: Independent Cognition: Independent Mobility: Previously able to transfer independently but utilized wheelchair predominantly as mode of mobility due to bilateral hip OA Barriers to Discharge: Decreased mobility and ability to perform self care, balance deficits, weakness Estimated Length of Stay: 10 days Discharge Destination: Home alone POST ADMISSION PHYSICIAN EVALUATION I have examined the patient and find that functional status, medical condition and appropriateness for IRF admission are essentially unchanged from those described in the preadmission screening. Will monitor for worsening surgical wound or dehiscence, worsening abdominal pain, ileus or obstruction, DVT/PE, bowel and bladder complications and complications due to hypertension, prior TIA and electrolyte abnormalities. Will attempt to avoid occurrence of these issues or treat them if they present themselves.
[2022-01-21] MEDS: ACETAMINOPHEN 325 MG TAB PO PRN (15:23)
[2022-01-21] MEDS: POLYETHYLENE GLYCOL 3350 17 GM POWDER PO PRN (15:23)
[2022-01-21] MEDS ORDERED: DOCUSATE SODIUM 100 MG CAP PO SCH (22:00)
[2022-01-21] MEDS: traMADol 50 MG TAB PO PRN (22:00)
[2022-01-21] MEDS: ZOLPIDEM 5 MG TAB PO PRN (22:01)
[2022-01-21] MEDS: diphenhydrAMINE 25 MG CAP PO PRN (22:04)
[2022-01-22] MEDS: GABAPENTIN 300 MG CAP PO SCH ×3 (06:52→21:44)
[2022-01-22] MEDS: FAMOTIDINE 20 MG TAB PO SCH ×2 (11:23→21:44)
[2022-01-22] MEDS: allopurinoL 100 MG TAB PO SCH (11:23)
[2022-01-22] MEDS: ASPIRIN EC 81 MG TAB PO SCH (11:23)
[2022-01-22] MEDS: traMADol 50 MG TAB PO PRN ×2 (11:23→21:46)
[2022-01-22] MEDS: VALSARTAN 160MG TAB PO SCH (11:23)
[2022-01-22] MEDS: ENOXAPARIN 40 MG/0.4 ML INJ SUB-Q SCH (11:24)
[2022-01-22] MEDS: hydroCHLOROthiazide 12.5 MG CAP PO SCH (11:24)
[2022-01-22] MEDS: POTASSIUM CHLORIDE ER 10 MEQ TAB PO SCH (11:24)
[2022-01-22] MEDS: sulfaSALAzine 500 MG TAB PO SCH ×2 (11:26→21:45)
[2022-01-22] MEDS: DOCUSATE SODIUM 100 MG CAP PO SCH (13:58)
[2022-01-22] MEDS: diphenhydrAMINE 25 MG CAP PO PRN (13:59)
[2022-01-22] MEDS: ZOLPIDEM 5 MG TAB PO PRN (21:44)
[2022-01-22] MEDS: POLYETHYLENE GLYCOL 3350 17 GM POWDER PO PRN (21:54)
[2022-01-23] MEDS: GABAPENTIN 300 MG CAP PO SCH ×3 (06:20→22:11)
[2022-01-23] MEDS: allopurinoL 100 MG TAB PO SCH (08:59)
[2022-01-23] MEDS: hydroCHLOROthiazide 12.5 MG CAP PO SCH (08:59)
[2022-01-23] MEDS: DOCUSATE SODIUM 100 MG CAP PO SCH (08:59)
[2022-01-23] MEDS: ASPIRIN EC 81 MG TAB PO SCH (08:59)
[2022-01-23] MEDS: FAMOTIDINE 20 MG TAB PO SCH ×2 (08:59→22:11)
[2022-01-23] MEDS: VALSARTAN 160MG TAB PO SCH (08:59)
[2022-01-23] MEDS: POTASSIUM CHLORIDE ER 10 MEQ TAB PO SCH (08:59)
[2022-01-23] MEDS: ENOXAPARIN 40 MG/0.4 ML INJ SUB-Q SCH (09:01)
[2022-01-23] MEDS: sulfaSALAzine 500 MG TAB PO SCH ×2 (09:06→22:11)
[2022-01-23] MEDS: ACETAMINOPHEN 325 MG TAB PO PRN (09:10)
--- NOTE | 2022-01-23 13:52 | Progress Note ---
Subjective Date of service: 01/23/22 Principal diagnosis: Debility after hernia repair Interval history: 67-year-old female who presented to the hospital after 2 days of abdominal pain accompanied with nausea and vomiting and a history of ventral hernia and diverticulitis. Work-up in the ER resulted in impression of small bowel obstruction and surgery was consulted. CT abdomen was ordered, IV fluids and IV antibiotics were given and the patient had an NG tube placed on suction and was made n.p.o. in preparation for OR. On 01/16 she underwent diagnostic lap with lysis of adhesions, open reduction of incarcerated small bowel and primary repair of incisional hernia by Dr Black. Abdominal binder was placed (on when OOB), patient was advanced to clear liquid diet without complication and then advance to GI soft diet. No strenuous lifting/activity. Patient has not had BM since admission but is passing flatus, denies N/V over last couple of days. Patient has morbid obesity with BMI greater than 45, typically is wheelchair dependent for mobility due to severe b/l hip OA and is able to transfer independently. Currently the patient is experiencing deficits with ADLs and self-care as well as transfers. Patient was seen by therapy and determined to be a good rehab candidate for short-term stay in order to return the patient to her premorbid abilities to independently perform transfers and self-care. Interval History: Patient is participating in therapy and making reasonable progress. Taking rest breaks as needed. -BM. Denies pain, palpitations, dyspnea, cough, N/V, or billy int pain. Hypertension: Better controlled with increase of HCTZ. Will monitor for the next couple of days and look to improve control with dose adjustment again Constipation: Taking stool softeners, has not had bowel movement yet. Still passing gas, positive bowel sounds, no nausea or vomiting Hypokalemia: Last dose replacement today, rechecking labs tomorrow Osteoarthritis of bilateral hips: Continue pain control, therapy as able to improve patient's mobility. Have already discussed with patient possibility of hip replacements and the need for weight loss. Status post incarcerated hernia repair: Clean dry and intact without any signs of dehiscence or wound infection ADL and mobility dysfunction: Working with therapy to improve ability to perform ADLs and self-care and mobilize Debility: Continue to work with therapy to improve strength All records, vitals, labs and medications were reviewed. No other issues per patient, nursing or therapy. Objective - Exam Narrative Exam: MUSCULOSKELETAL SPECIALTY EXAM CONSTITUTIONAL: Well developed, well nourished, appropriately groomed, obese RESPIRATORY: Clear to auscultation bilaterally, no increased work of breathing CARDIOVASCULAR: Regular Rate/ Rhythm, no swelling, edema or tenderness in BUE or BLE. All extremities warm. GI: + bowel sounds, soft, NTTP, nondistended. INTEGUMENTARY: Normal, no lesion, rash, masses or bruising noted in extremities. Surgical incision clean dry and intact with surgical glue MUSCULOSKELETAL: BUE and BLE normal without defect, crepitus, subluxation, effusion, arthritic changes or TTP. BUE 4+/5, good ROM, with normal tone. BLE 4-/5 decreased ROM, with normal tone, limited by pain at hip joints NEURO: Sensation intact in all extremities. Coordination intact in BUE. No tremor noted in 4 extremities. POSTURE and GAIT: Decreased gait at home but is able to take a few steps PSYCH: Alert, oriented x3, affect appears normal. Insight appears intact. - Constitutional Vitals: Vital Signs - 12hr 01/23/22 01/23/22 01/23/22 08:29 09:00 11:18 Temperature 98.1 F 97.3 F L Pulse Rate 72 69 Pulse Rate [ 72 From Monitor] Respiratory 18 18 18 Rate Blood Pressure 148/91 142/83 O2 Sat by Pulse 96 99 95 Oximetry - Allied health notes Allied health notes reviewed: nursing, PT, OT FIMS assessment as documented by PT/OT/ST: Locomotion- walk/wheelchair Ambulation Distance 10 - Labs CBC & Chem 7: 01/21/22 04:07 01/21/22 04:07 Labs: Laboratory Results - last 72 hr 01/21/22 01/21/22 04:07 04:07 WBC 5.9 RBC 4.17 Hgb 12.8 Hct 39.3 MCV 94 MCH 31 MCHC 33 RDW 14.6 Plt Count 158 Lymph % (Auto) 26.8 [place] % (Auto) 8.9 H Eos % (Auto) 2.6 Baso % (Auto) 0.4 Lymph # (Auto) 1.6 [place] # (Auto) 0.5 Eos # (Auto) 0.2 Baso # (Auto) 0.0 Seg Neutrophils % 61.3 Seg Neutrophils # 3.6 Sodium 139 Potassium 3.9 Chloride 100.7 Carbon Dioxide 28 Anion Gap 14 BUN 11 Creatinine 0.5 L Estimated GFR > 60 BUN/Creatinine Ratio 22 Glucose 96 Calcium 8.6 Total Bilirubin 0.20 AST 25 ALT 15 Alkaline Phosphatase 49 Total Protein 6.0 L Albumin 3.3 L Albumin/Globulin Ratio 1.2 Assessment and Plan Status post incarcerated hernia repair: Patient has not had a bowel movement since admission to acute care side. Is passing flatus. Stool softener started, tolerating GI soft foods without nausea or vomiting. Wound clean dry and intact without signs of infection. Abdominal binder on when up. No strenuous activity or lifting. Hypertension, uncontrolled: Currently on valsartan and HCTZ. HCTZ increased, blood pressure slightly better, monitor for effect. Goal less than 140/80. Monitor and adjust medications as needed Hypokalemia: Continue replacement through Sunday. We will recheck labs. Magnesium was within normal limits prior to transfer. Morbid obesity: BMI 48.5 on admission to rehab. Counseled patient on weight loss which would help with both hernia and osteoarthritis of the hips. Discussed benefits of weight loss and availability of elective hip replacement. Suspected prior TIA: Patient previously started on aspirin and statin due to TIA symptoms in September 2021. Not currently taking aspirin but is taking sulfasalazine, will restart low dose ASA. Did not see a previous hemoglobin A1c. Will recheck cholesterol panel and hemoglobin A1c at next scheduled lab. Constipation: Continue to monitor for bowel movement. Patient is passing flatus and denies any nausea or vomiting currently. Appetite remains good. Stool softener and bowel medications made available. Osteoarthritis bilateral hips: Patient currently taking sulfasalazine for pain control per her manager outpatient. Has investigated bilateral hip arthroplasty in the past however has not moved forward with it. Continue pain control. On admission, discussed with patient benefits of weight loss and possible surgical intervention ADL dysfunction: OT will work on improving ability to perform ADLs (including assistive devices) to increase independence and decrease caregiver burden and improve functional transfers and mobility training. Difficulty walking: PT will work on gait training and proper use of assistive devices and advance as appropriate to use of stairs and outside ambulation on uneven surfaces. Unsteadiness on feet: PT will work on improving static and dynamic sitting and standing balance as well as proper use of assistive devices to decrease risk of falls. Abnormality of gait: PT will work to improve safety and efficiency of gait through neuromotor training and gait training along with instruction on proper use of assistive devices. Muscle weakness: PT & OT will work on strengthening exercises to improve functional strength including mixture of closed and open kinetic chain exercises. Debility: PT & OT will work on improving overall functional status to improve participation with ADLs, mobility and social involvement. Fatigue: PT & OT will work on improving endurance through aerobic exercises and therapeutic activity while monitoring patients tolerance for activity and vital signs as needed. DVT ppx: Lovenox Pain: Continue physical modalities in therapy and pain medications as needed to achieve functional pain control. Sleep: Monitor and address as needed. Bowel: Monitor and address as needed. Appetite: Monitor and address as needed. Discharge planning: Pending therapy progress and care plan meeting. Will continue discussion with therapy team, SW, patient and family. Restrictions/ Precautions: Falls, no strenuous lifting or activity, abdominal binder on when out of bed WB status: FWB Functional Hx: ADLs: Independent Cognition: Independent Mobility: Previously able to transfer independently but utilized wheelchair predominantly as mode of mobility due to bilateral hip OA Barriers to Discharge: Decreased mobility and ability to perform self care, balance deficits, weakness Estimated Length of Stay: 10 days Discharge Destination: Home with nephew
[2022-01-23] MEDS: diphenhydrAMINE 25 MG CAP PO PRN (15:51)
[2022-01-23] MEDS: traMADol 50 MG TAB PO PRN (15:51)
--- NOTE | 2022-01-23 17:06 | IRU Plan of Care ---
Interdisciplinary Plan of Care - IP IRU INTERDISCIPLINARY PLAN: [facility] Unit Plan of Care IRU Interdisciplinary Care Plan Start: 01/22/22 10:09 Freq: Status: Active Protocol: Document 01/23/22 16:47 TH (Rec: 01/23/22 16:52 TH [id number]) Interdisciplinary Problem List Interdisciplinary Problem List Interdisciplinary Problem List Impaired Mobility,Impaired Query Text:Answers will Trigger Problems Transfers,Pain Management and Outcomes on Worklist. Interdisciplinary Problem List Impaired Mobility,Impaired Query Text:Answers will Trigger Problems Transfers,Pain Management and Outcomes on Worklist. IRU Interdisciplinary Care Plan Therapy Services Therapy Services Will Include: Physical Therapy,Occupational Query Text:Patient will be seen for a Therapy minimum of 3 hours of daily therapy 5 out of 7 days a week. Therapy intensity may be adjusted within a 7 consecutive day period to effectively serve the individual needs of the patient. Treatment Frequency/Intensity/Duration Treatment Frequency 5X/WEEK Treatment Intensity 3 HOURS/DAY Treatment Duration 7-10 DAYS Problem Area: Eating/Swallowing Eating/Swallowing Outcomes Eating/Swallowing Interventions Problem Area: Bathing/Grooming Bathing/Grooming Outcomes Bathing/Grooming Interventions Problem Area: Dressing Dressing Outcomes Improve [place] w/ UB Dressing,Improve Stokes w/ LB Dressing Dressing Outcomes Improve Stokes w/ UB Dressing,Improve [place] w/ LB Dressing Problem Area: Mobility Mobility Interventions Therapeutic Exercise, Neuromuscular Re-Ed.,Activity Tolerance Work,Use of Assistive Devices,Patient/ Caregiver Education,Bed Mobility Work,Gait Training,W/ C Mobility Work Problem Area: Transfers Transfers Outcomes Improve [place] w/ Bed Transfers,Improve Stokes w/ Toilet Transfers,Improve [place] w/ Tub/Shower Transfers,Improve [place] w/ Car Transfers Transfers Interventions Transfer Training,Therapeutic Exercise,Neuromuscular Re- Education,Activity Tolerance Work,Use of Assistive Devices, Patient/Caregiver Education Problem Area: Bowel/Bladder Managment Bowel/Bladder Outcomes Bowel/Bladder Interventions Problem Area: Toileting Toileting Outcomes Improve [place] w/ Toileting Toileting Interventions ADL Training,Balance Work,Use of Assistive Devices,Patient/ Caregiver Education Problem Area: Nutrition Nutrition Outcomes Nutrition Interventions Problem Area: Comprehension Comprehension Outcomes Comprehension Interventions Problem Area: Expression Expression Outcomes Expression Interventions Problem Area: Problem Solving Problem Solving Outcomes Problem Solving Interventions Problem Area: Memory Memory Outcomes Memory Interventions Problem Area: Pain Management Pain Management Outcomes Demonstrate/Verbalize Pain Strategies Pain Management Interventions Use of Devices/Modalities ( TENS, hot pack, cold pack, etc .),Positioning/Turning,Patient /Caregiver Education Problem Area: Knowledge Deficits Knowledge Deficits Outcomes Knowledge Deficits Interventions Problem Area: Skin/Tissue Integrity Skin/Tissue Integrity Outcomes Skin/Tissue Integrity Interventions Problem Area: Social Interaction Social Interaction Outcomes Social Interaction Interventions Problem Area: Adjustment to Disability Adjustment to Disability Outcomes Adjustment to Disability Interventions Problem Area: Discharge Concerns Discharge Concerns Outcomes Discharge w/ Necessary Equipment,Have Home Health/ Outpatient Services Discharge Concerns Interventions Discharge Planning,Equipment Assessment, Acquisition and Placement,Family/Caregiver Training Problem Area: Community Reintegration Community Reintegration Outcomes Community Reintegration Interventions Problem Area: Home Management Home Management Outcomes Improve [place] w/ Home Management Home Management Interventions Meal Preparation,Activity Tolerance Work,House Cleaning, Patient/Caregiver Education Problem Area: Safety Safety Outcomes Provide Safe Environment, Perform Selfcare Safely, Demonstrate Good Safety w/ Transfers/Mobility Safety Interventions Identify Fall Risk,[place] Pt. to Environment,Reduce Environmental Hazards Problem Area: Medication Education Medication Education Outcomes Patient/Caregiver will Verbalize Understanding of Medications Medication Education Interventions Explain Administration/Side Effects/Interactions Problem Area: Diabetes Education Diabetes Education Outcomes Diabetes Education Interventions Problem Area: Oxygenation Oxygenation Outcomes Oxygenation Interventions Problem Area: Cardiovascular Cardiovascular Outcomes Cardiovascular Interventions Physician Only Medical Prognosis and Rehabilitation Good rehab potential, good medical prognosis Potential (Completed by Physician) This plan of care has been developed based on the findings from the pre- admission assessment, post admission physician evaluation, information gathered from the assessments from all therapy disciplines and other pertinent clinicians. The plan of care has been reviewed and discussed in collaboration with the interdisciplinary team. The plan of care will be reviewed and updated at least weekly.
[2022-01-23] MEDS: ZOLPIDEM 5 MG TAB PO PRN (22:12)
[2022-01-24] MEDS: diphenhydrAMINE 25 MG CAP PO PRN ×2 (00:08→21:18)
[2022-01-24] MEDS: GABAPENTIN 300 MG CAP PO SCH ×3 (05:48→21:18)
[2022-01-24 07:41] LABS: Hematocrit 41.1 % (30.3-42.9); Hemoglobin 13.4 gm/dl (10.1-14.3); Mean Corpuscular HGB Conc 33 % (30-34); Mean Corpuscular Volume 94 fl (79-97); Platelet Count 167 K/mm3 (140-440); Red Blood Count 4.36 M/mm3 (3.65-5.03); Red Cell Distribution Width 14.6 % (13.2-15.2)
[2022-01-24 08:14] LABS: Blood Urea Nitrogen 13 mg/dL (7-17); Calcium 9.2 mg/dL (8.4-10.2); Chol/HDL Ratio 3.07 %; HDL Cholesterol 41 mg/dL (40-59); Hemolysis Index 23; LDL Cholesterol,Direct 71 mg/dL (50-130)
[2022-01-24 08:16] LABS: BUN/Creatinine Ratio 26
[2022-01-24] MEDS: allopurinoL 100 MG TAB PO SCH (10:53)
[2022-01-24] MEDS: DOCUSATE SODIUM 100 MG CAP PO SCH (10:53)
[2022-01-24] MEDS: FAMOTIDINE 20 MG TAB PO SCH ×2 (10:53→21:18)
[2022-01-24] MEDS: ASPIRIN EC 81 MG TAB PO SCH (10:53)
[2022-01-24] MEDS: POLYETHYLENE GLYCOL 3350 17 GM POWDER PO PRN (10:53)
[2022-01-24] MEDS: hydroCHLOROthiazide 12.5 MG CAP PO SCH (10:53)
[2022-01-24] MEDS: VALSARTAN 160MG TAB PO SCH (10:53)
[2022-01-24] MEDS: sulfaSALAzine 500 MG TAB PO SCH ×2 (10:53→21:18)
[2022-01-24] MEDS: ENOXAPARIN 40 MG/0.4 ML INJ SUB-Q SCH (10:53)
[2022-01-24] MEDS: traMADol 50 MG TAB PO PRN (11:00)
--- NOTE | 2022-01-24 12:06 | Progress Note ---
Subjective Date of service: 01/24/22 Principal diagnosis: Debility after hernia repair Interval history: 67-year-old female who presented to the hospital after 2 days of abdominal pain accompanied with nausea and vomiting and a history of ventral hernia and diverticulitis. Work-up in the ER resulted in impression of small bowel obstruction and surgery was consulted. CT abdomen was ordered, IV fluids and IV antibiotics were given and the patient had an NG tube placed on suction and was made n.p.o. in preparation for OR. On 01/16 she underwent diagnostic lap with lysis of adhesions, open reduction of incarcerated small bowel and primary repair of incisional hernia by Dr Black. Abdominal binder was placed (on when OOB), patient was advanced to clear liquid diet without complication and then advance to GI soft diet. No strenuous lifting/activity. Patient has not had BM since admission but is passing flatus, denies N/V over last couple of days. Patient has morbid obesity with BMI greater than 45, typically is wheelchair dependent for mobility due to severe b/l hip OA and is able to transfer independently. Currently the patient is experiencing deficits with ADLs and self-care as well as transfers. Patient was seen by therapy and determined to be a good rehab candidate for short-term stay in order to return the patient to her premorbid abilities to independently perform transfers and self-care. Interval History: Patient is participating in therapy and making reasonable progress. Taking rest breaks as needed. -BM. Denies pain, palpitations, dyspnea, cough, N/V, or billy int pain. Hypertension: Better controlled with increase of HCTZ and continues to improve over the last couple of days. Continue to monitor and look to improve control with dose adjustment again if needed Constipation: Taking stool softeners, has not had bowel movement yet. Still passing gas, decreased bowel sounds, no nausea or vomiting. Patient had surgery on 01/16 and has not had a bowel movement since. Will obtain KUB to rule out ileus. Reconsult surgeon as needed. Hypokalemia: Potassium normalized but has dropped since 01/21. We will continue to monitor and replace as needed. Trial patient off of replacement therapy. Osteoarthritis of bilateral hips: Continue pain control, therapy as able to improve patient's mobility. Have already discussed with patient possibility of hip replacements and the need for weight loss. Status post incarcerated hernia repair: Clean dry and intact without any signs of dehiscence or wound infection ADL and mobility dysfunction: Working with therapy to improve ability to perform ADLs and self-care and mobilize Debility: Continue to work with therapy to improve strength All records, vitals, labs and medications were reviewed. No other issues per patient, nursing or therapy. Patient discussed during team conference. Making decent progress towards goals however she is still not having success with bowel movements. Will obtain KUB in order to assess for ileus. Actually taking a few steps with therapy and progressing from that standpoint however the standing and walking is causing her significant pain and she prefers to only perform transfers and utilize wheelchair for mobility purposes. Improving on her ADLs and self-care. Will look to discharge patient next Sunday. She has all needed equipment at home already. From the medical standpoint, she will need to have regular bowel movements prior to discharge in order to be medically stable. Blood pressure does seem to be improved. We will continue to monitor the patient and adjust plan of care as needed going forward with weekly meetings for team conference. Objective - Exam Narrative Exam: MUSCULOSKELETAL SPECIALTY EXAM CONSTITUTIONAL: Well developed, well nourished, appropriately groomed, obese RESPIRATORY: Clear to auscultation bilaterally, no increased work of breathing CARDIOVASCULAR: Regular Rate/ Rhythm, no swelling, edema or tenderness in BUE or BLE. All extremities warm. GI: + bowel sounds, soft, NTTP, nondistended. INTEGUMENTARY: Normal, no lesion, rash, masses or bruising noted in extremities. Surgical incision clean dry and intact with surgical glue MUSCULOSKELETAL: BUE and BLE normal without defect, crepitus, subluxation, effusion, arthritic changes or TTP. BUE 4+/5, good ROM, with normal tone. BLE 4-/5 decreased ROM, with normal tone, limited by pain at hip joints NEURO: Sensation intact in all extremities. Coordination intact in BUE. No tremor noted in 4 extremities. POSTURE and GAIT: Walking about 10 feet but this causes pain PSYCH: Alert, oriented x3, affect appears normal. Insight appears intact. - Constitutional Vitals: Vital Signs - 12hr 01/24/22 01/24/22 01/24/22 07:34 08:33 11:32 Temperature 99.0 F 98.0 F Pulse Rate 68 Respiratory 18 18 20 Rate Blood Pressure 134/86 145/78 O2 Sat by Pulse 99 96 Oximetry - Allied health notes Allied health notes reviewed: nursing, PT, OT FIMS assessment as documented by PT/OT/ST: Locomotion- walk/wheelchair Ambulation Distance 10 - Labs CBC & Chem 7: 01/24/22 07:06 01/24/22 07:06 Labs: Laboratory Results - last 72 hr 01/24/22 01/24/22 01/24/22 07:06 07:06 07:06 WBC 5.6 RBC 4.36 Hgb 13.4 Hct 41.1 MCV 94 MCH 31 MCHC 33 RDW 14.6 Plt Count 167 Sodium 141 Potassium 3.6 Chloride 100.5 Carbon Dioxide 27 Anion Gap 17 BUN 13 Creatinine 0.5 L Estimated GFR > 60 BUN/Creatinine Ratio 26 Glucose 102 H Hemoglobin A1c 5.1 Calcium 9.2 Triglycerides 100 Cholesterol 126 LDL Cholesterol Direct 71 HDL Cholesterol 41 Cholesterol/HDL Ratio 3.07 - Imaging and cardiology Abdominal x-ray: report reviewed, image reviewed Assessment and Plan Status post incarcerated hernia repair: Patient has not had a bowel movement since admission to acute care side. Is passing flatus. Stool softener started, tolerating GI soft foods without nausea or vomiting. Wound clean dry and intact without signs of infection. Abdominal binder on when up. No strenuous activity or lifting. Hypertension, uncontrolled: Currently on valsartan and HCTZ. HCTZ increased, blood pressure slightly better, monitor for effect. Goal less than 140/80. M onitor and adjust medications as needed Hypokalemia: Improved, continue to monitor and replace as needed Morbid obesity: BMI 48.5 on admission to rehab. Counseled patient on weight loss which would help with both hernia and osteoarthritis of the hips. Discussed benefits of weight loss and availability of elective hip replacement. Suspected prior TIA: Patient previously started on aspirin and statin due to TIA symptoms in September 2021. Not currently taking aspirin but is taking sulfasalazine, will restart low dose ASA. Did not see a previous hemoglobin A1c. Hemoglobin A1c within normal limits at 5.1. LDL 71, HDL 41, total cholesterol 126, triglycerides 100. Constipation: Continue to monitor for bowel movement. Patient is passing flatus and denies any nausea or vomiting currently. Appetite remains good. Stool softener and bowel medications made available. KUB ordered to rule out possible ileus, patient has not had bowel movement since surgery on 01/16. Osteoarthritis bilateral hips: Patient currently taking sulfasalazine for pain control per her regulatory auditor. Has investigated bilateral hip arthroplasty in the past however has not moved forward with it. Continue pain control. On admission, discussed with patient benefits of weight loss and possible surgical intervention ADL dysfunction: OT will work on improving ability to perform ADLs (including assistive devices) to increase independence and decrease caregiver burden and improve functional transfers and mobility training. Difficulty walking: PT will work on gait training and proper use of assistive devices and advance as appropriate to use of stairs and outside ambulation on uneven surfaces. Unsteadiness on feet: PT will work on improving static and dynamic sitting and standing balance as well as proper use of assistive devices to decrease risk of falls. Abnormality of gait: PT will work to improve safety and efficiency of gait through neuromotor training and gait training along with instruction on proper use of assistive devices. Muscle weakness: PT & OT will work on strengthening exercises to improve functional strength including mixture of closed and open kinetic chain exercises. Debility: PT & OT will work on improving overall functional status to improve participation with ADLs, mobility and social involvement. Fatigue: PT & OT will work on improving endurance through aerobic exercises and therapeutic activity while monitoring patients tolerance for activity and vital signs as needed. DVT ppx: Lovenox Pain: Continue physical modalities in therapy and pain medications as needed to achieve functional pain control. Sleep: Monitor and address as needed. Bowel: Monitor and address as needed. Appetite: Monitor and address as needed. Discharge planning: Pending therapy progress and care plan meeting. Will continue discussion with therapy team, SW, patient and family. We will look to discharge next Sunday on 01/31. Patient has all medical equipment needed Restrictions/ Precautions: Falls, no strenuous lifting or activity, abdominal binder on when out of bed WB status: FWB Functional Hx: ADLs: Independent Cognition: Independent Mobility: Previously able to transfer independently but utilized wheelchair predominantly as mode of mobility due to bilateral hip OA Barriers to Discharge: Decreased mobility and ability to perform self care, balance deficits, weakness Estimated Length of Stay: 10 days Discharge Destination: Home with nephew
--- NOTE | 2022-01-24 15:13 | XRay Report ---
ABDOMEN 1 VIEW(S) INDICATION / CLINICAL INFORMATION: Constipation s/p surgery, r/o ileus. COMPARISON: None available. FINDINGS: TUBES / LINES: None. BOWEL GAS PATTERN: No significant abnormality. No evidence for bowel obstruction or significant ileus . FREE AIR / EXTRALUMINAL GAS: None seen. ADDITIONAL FINDINGS: No significant additional findings. IMPRESSION: No significant abnormality. Signer Name: Vipin Perry Jr, MD Signed: 01/24/2022 3:08 PM Workstation Name: [id number]
[2022-01-24] MEDS: ZOLPIDEM 5 MG TAB PO PRN (21:18)
[2022-01-25] MEDS: GABAPENTIN 300 MG CAP PO SCH ×3 (06:37→21:30)
[2022-01-25] MEDS: hydroCHLOROthiazide 12.5 MG CAP PO SCH (09:32)
[2022-01-25] MEDS: ASPIRIN EC 81 MG TAB PO SCH (09:32)
[2022-01-25] MEDS: POLYETHYLENE GLYCOL 3350 17 GM POWDER PO PRN (09:32)
[2022-01-25] MEDS: ENOXAPARIN 40 MG/0.4 ML INJ SUB-Q SCH (09:32)
[2022-01-25] MEDS: DOCUSATE SODIUM 100 MG CAP PO SCH (09:32)
[2022-01-25] MEDS: allopurinoL 100 MG TAB PO SCH (09:32)
[2022-01-25] MEDS: sulfaSALAzine 500 MG TAB PO SCH ×2 (09:32→21:30)
[2022-01-25] MEDS: VALSARTAN 160MG TAB PO SCH (09:32)
[2022-01-25] MEDS: FAMOTIDINE 20 MG TAB PO SCH ×2 (09:32→21:30)
[2022-01-25] MEDS: traMADol 50 MG TAB PO PRN (09:53)
--- NOTE | 2022-01-25 14:13 | Progress Note ---
Subjective Date of service: 01/25/22 Principal diagnosis: Debility after hernia repair Interval history: 67-year-old female who presented to the hospital after 2 days of abdominal pain accompanied with nausea and vomiting and a history of ventral hernia and diverticulitis. Work-up in the ER resulted in impression of small bowel obstruction and surgery was consulted. CT abdomen was ordered, IV fluids and IV antibiotics were given and the patient had an NG tube placed on suction and was made n.p.o. in preparation for OR. On 01/16 she underwent diagnostic lap with lysis of adhesions, open reduction of incarcerated small bowel and primary repair of incisional hernia by Dr Black. Abdominal binder was placed (on when OOB), patient was advanced to clear liquid diet without complication and then advance to GI soft diet. No strenuous lifting/activity. Patient has not had BM since admission but is passing flatus, denies N/V over last couple of days. Patient has morbid obesity with BMI greater than 45, typically is wheelchair dependent for mobility due to severe b/l hip OA and is able to transfer independently. Currently the patient is experiencing deficits with ADLs and self-care as well as transfers. Patient was seen by therapy and determined to be a good rehab candidate for short-term stay in order to return the patient to her premorbid abilities to independently perform transfers and self-care. Interval History: Patient is participating in therapy and making reasonable progress. Taking rest breaks as needed. -BM. Denies pain, palpitations, dyspnea, cough, N/V, or billy int pain. Patient refused therapy today due to abdominal pain, likely related to constipation, call placed to surgeon's office. Hypertension: Better controlled with increase of HCTZ and continues to improve over the last couple of days. Continue to monitor and look to improve control with dose adjustment again if needed Constipation: Taking stool softeners, has not had bowel movement yet, having a little bit of discomfort this morning and feels like stool is in the vault but will not evacuate. Still passing gas, bowel sounds, no nausea or vomiting. Patient had surgery on 01/16 and has not had a bowel movement since. KUB did not show an ileus or obstruction. Will look to start enema today if ok with surgeon. Notified Dr. Black's office. Hypokalemia: Potassium normalized. We will continue to monitor and replace as needed. Trial patient off of replacement therapy. Osteoarthritis of bilateral hips: Continue pain control, therapy as able to improve patient's mobility. Have already discussed with patient possibility of hip replacements and the need for weight loss. Status post incarcerated hernia repair: Clean dry and intact without any signs of dehiscence or wound infection ADL and mobility dysfunction: Working with therapy to improve ability to perform ADLs and self-care and mobilize Debility: Continue to work with therapy to improve strength All records, vitals, labs and medications were reviewed. No other issues per patient, nursing or therapy. Objective - Exam Narrative Exam: MUSCULOSKELETAL SPECIALTY EXAM CONSTITUTIONAL: Well developed, well nourished, appropriately groomed, obese RESPIRATORY: Clear to auscultation bilaterally, no increased work of breathing CARDIOVASCULAR: Regular Rate/ Rhythm, no swelling, edema or tenderness in BUE or BLE. All extremities warm. GI: + bowel sounds, soft, appropriate TTP. INTEGUMENTARY: Normal, no lesion, rash, masses or bruising noted in extremities. Surgical incision clean dry and intact with surgical glue MUSCULOSKELETAL: BUE and BLE normal without defect, crepitus, subluxation, effusion, arthritic changes or TTP. BUE 4+/5, good ROM, with normal tone. BLE 4-/5 decreased ROM, with normal tone, limited by pain at hip joints NEURO: Sensation intact in all extremities. Coordination intact in BUE. No tremor noted in 4 extremities. POSTURE and GAIT: Walking about 10 feet but this causes pain PSYCH: Alert, oriented x3, affect appears normal. Insight appears intact. - Constitutional Vitals: Vital Signs - 12hr 01/25/22 01/25/22 08:47 10:09 Temperature 98.8 F Pulse Rate 64 Respiratory 18 18 Rate Blood Pressure 139/77 [Right] O2 Sat by Pulse 99 96 Oximetry - Allied health notes Allied health notes reviewed: nursing, PT, OT FIMS assessment as documented by PT/OT/ST: Locomotion- walk/wheelchair Ambulation Distance 10 - Labs CBC & Chem 7: 01/24/22 07:06 01/24/22 07:06 Labs: Laboratory Results - last 72 hr 01/24/22 01/24/22 01/24/22 07:06 07:06 07:06 WBC 5.6 RBC 4.36 Hgb 13.4 Hct 41.1 MCV 94 MCH 31 MCHC 33 RDW 14.6 Plt Count 167 Sodium 141 Potassium 3.6 Chloride 100.5 Carbon Dioxide 27 Anion Gap 17 BUN 13 Creatinine 0.5 L Estimated GFR > 60 BUN/Creatinine Ratio 26 Glucose 102 H Hemoglobin A1c 5.1 Calcium 9.2 Triglycerides 100 Cholesterol 126 LDL Cholesterol Direct 71 HDL Cholesterol 41 Cholesterol/HDL Ratio 3.07 Assessment and Plan Status post incarcerated hernia repair: Patient has not had a bowel movement since admission to acute care side. Is passing flatus. Stool softener started, tolerating GI soft foods without nausea or vomiting. Wound clean dry and in tact without signs of infection. Abdominal binder on when up. No strenuous activity or lifting. Call placed to surgeon, if she okays it will give patient enema today Hypertension, uncontrolled: Currently on valsartan and HCTZ. HCTZ increased, blood pressure slightly better, monitor for effect. Goal less than 140/80. Monitor and adjust medications as needed Hypokalemia: Improved, continue to monitor and replace as needed Morbid obesity: BMI 48.5 on admission to rehab. Counseled patient on weight loss which would help with both hernia and osteoarthritis of the hips. Discussed benefits of weight loss and availability of elective hip replacement. Suspected prior TIA: Patient previously started on aspirin and statin due to TIA symptoms in September 2021. Not currently taking aspirin but is taking sulfasalazine, will restart low dose ASA. Did not see a previous hemoglobin A1c. Hemoglobin A1c within normal limits at 5.1. LDL 71, HDL 41, total cholesterol 126, triglycerides 100. Constipation: Continue to monitor for bowel movement. Patient is passing flatus and denies any nausea or vomiting currently. Appetite remains good. Stool softener and bowel medications made available. KUB NEG for ileus or obstruction but inspection of the images appears to show stool in the vault, patient has not had bowel movement since surgery on 01/16. 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 Has investigated bilateral hip arthroplasty in the past however has not moved forward with it. Continue pain control. On ad mission, discussed with patient benefits of weight loss and possible surgical intervention ADL dysfunction: OT will work on improving ability to perform ADLs (including assistive devices) to increase independence and decrease caregiver burden and improve functional transfers and mobility training. Difficulty walking: PT will work on gait training and proper use of assistive devices and advance as appropriate to use of stairs and outside ambulation on uneven surfaces. Unsteadiness on feet: PT will work on improving static and dynamic sitting and standing balance as well as proper use of assistive devices to decrease risk of falls. Abnormality of gait: PT will work to improve safety and efficiency of gait through neuromotor training and gait training along with instruction on proper use of assistive devices. Muscle weakness: PT & OT will work on strengthening exercises to improve func tional strength including mixture of closed and open kinetic chain exercises. Debility: PT & OT will work on improving overall functional status to improve participation with ADLs, mobility and social involvement. Fatigue: PT & OT will work on improving endurance through aerobic exercises and therapeutic activity while monitoring patients tolerance for activity and vital signs as needed. DVT ppx: Lovenox Pain: Continue physical modalities in therapy and pain medications as needed to achieve functional pain control. Sleep: Monitor and address as needed. Bowel: Monitor and address as needed. Appetite: Monitor and address as needed. Discharge planning: Pending therapy progress and care plan meeting. Will continue discussion with therapy team, SW, patient and family. We will look to discharge next Sunday on 01/31. Patient has all medical equipment needed Restrictions/ Precautions: Falls, no strenuous lifting or activity, abdominal binder on when out of bed WB status: FWB Functional Hx: ADLs: Independent Cognition: Independent Mobility: Previously able to transfer independently but utilized wheelchair predominantly as mode of mobility due to bilateral hip OA Barriers to Discharge: Decreased mobility and ability to perform self care, balance deficits, weakness Estimated Length of Stay: 10 days Discharge Destination: Home with nephew
[2022-01-25] MEDS ORDERED: MINERAL OIL ENEMA 133 ML PR ONE (15:30)
[2022-01-25] MEDS: ZOLPIDEM 5 MG TAB PO PRN (21:30)
[2022-01-25] MEDS: diphenhydrAMINE 25 MG CAP PO PRN (21:30)
[2022-01-26] MEDS: GABAPENTIN 300 MG CAP PO SCH ×3 (06:22→21:12)
[2022-01-26] MEDS: DOCUSATE SODIUM 100 MG CAP PO SCH (10:58)
[2022-01-26] MEDS: VALSARTAN 160MG TAB PO SCH (10:58)
[2022-01-26] MEDS: ASPIRIN EC 81 MG TAB PO SCH (10:58)
[2022-01-26] MEDS: sulfaSALAzine 500 MG TAB PO SCH ×2 (10:58→21:12)
[2022-01-26] MEDS: ENOXAPARIN 40 MG/0.4 ML INJ SUB-Q SCH (10:58)
[2022-01-26] MEDS: allopurinoL 100 MG TAB PO SCH (10:59)
[2022-01-26] MEDS: FAMOTIDINE 20 MG TAB PO SCH ×2 (10:59→21:12)
[2022-01-26] MEDS: hydroCHLOROthiazide 12.5 MG CAP PO SCH (10:59)
[2022-01-26] MEDS ORDERED: MINERAL OIL ENEMA 133 ML PR PRN (12:26)
--- NOTE | 2022-01-26 12:28 | Progress Note ---
Subjective Date of service: 01/26/22 Principal diagnosis: Debility after hernia repair Interval history: 67-year-old female who presented to the hospital after 2 days of abdominal pain accompanied with nausea and vomiting and a history of ventral hernia and diverticulitis. Work-up in the ER resulted in impression of small bowel obstruction and surgery was consulted. CT abdomen was ordered, IV fluids and IV antibiotics were given and the patient had an NG tube placed on suction and was made n.p.o. in preparation for OR. On 01/16 she underwent diagnostic lap with lysis of adhesions, open reduction of incarcerated small bowel and primary repair of incisional hernia by Dr Black. Abdominal binder was placed (on when OOB), patient was advanced to clear liquid diet without complication and then advance to GI soft diet. No strenuous lifting/activity. Patient has not had BM since admission but is passing flatus, denies N/V over last couple of days. Patient has morbid obesity with BMI greater than 45, typically is wheelchair dependent for mobility due to severe b/l hip OA and is able to transfer independently. Currently the patient is experiencing deficits with ADLs and self-care as well as transfers. Patient was seen by therapy and determined to be a good rehab candidate for short-term stay in order to return the patient to her premorbid abilities to independently perform transfers and self-care. Interval History: Patient is participating in therapy and making reasonable progress. Taking rest breaks as needed. +BMs since yesterday. Denies pain, palpitations, dyspnea, cough, N/V, or joint pain. Hypertension: Better controlled with increase of HCTZ, occasional elevation but overall much better control. Continue to monitor and look to improve control with dose adjustment again if needed Constipation: Bowel movement yesterday about 2 hours after suppository and enema combination. Patient reports ease with the bowel movement and has also had several since. No nausea or vomiting. KUB did not show an ileus or obstruction. Appreciate input from Dr. Black Hypokalemia: Potassium normalized. We will continue to monitor and replace as needed. Trial patient off of replacement therapy. Osteoarthritis of bilateral hips: Continue pain control, therapy as able to improve patient's mobility. Have already discussed with patient possibility of hip replacements and the need for weight loss. Status post incarcerated hernia repair: Clean dry and intact without any signs of dehiscence or wound infection ADL and mobility dysfunction: Working with therapy to improve ability to perform ADLs and self-care and mobilize. Getting close to baseline for transfers and is able to ambulate for short distances Debility: Continue to work with therapy to improve strength All records, vitals, labs and medications were reviewed. No other issues per patient, nursing or therapy. Objective - Exam Narrative Exam: MUSCULOSKELETAL SPECIALTY EXAM CONSTITUTIONAL: Well developed, well nourished, appropriately groomed, obese RESPIRATORY: Clear to auscultation bilaterally, no increased work of breathing CARDIOVASCULAR: Regular Rate/ Rhythm, no swelling, edema or tenderness in BUE or BLE. All extremities warm. GI: + bowel sounds, soft, appropriate TTP. INTEGUMENTARY: Normal, no lesion, rash, masses or bruising noted in extremities. Surgical incision clean dry and intact with surgical glue MUSCULOSKELETAL: BUE and BLE normal without defect, crepitus, subluxation, effusion, arthritic changes or TTP. BUE 4+/5, good ROM, with normal tone. BLE 4-/5 decreased ROM, with normal tone, limited by pain at hip joints NEURO: Sensation intact in all extremities. No tremor noted in 4 extremities. POSTURE and GAIT: Walking short distances but this causes pain PSYCH: Alert, oriented x3, affect appears normal. Insight appears intact. - Constitutional Vitals: Vital Signs - 12hr 01/26/22 08:18 Pulse Rate 79 Blood Pressure 120/73 O2 Sat by Pulse 93 Oximetry - Allied health notes Allied health notes reviewed: nursing, PT, OT FIMS assessment as documented by PT/OT/ST: Locomotion- walk/wheelchair Ambulation Distance 10 - Labs CBC & Chem 7: 01/24/22 07:06 01/24/22 07:06 Labs: Laboratory Results - last 72 hr 01/24/22 01/24/22 01/24/22 07:06 07:06 07:06 WBC 5.6 RBC 4.36 Hgb 13.4 Hct 41.1 MCV 94 MCH 31 MCHC 33 RDW 14.6 Plt Count 167 Sodium 141 Potassium 3.6 Chloride 100.5 Carbon Dioxide 27 Anion Gap 17 BUN 13 Creatinine 0.5 L Estimated GFR > 60 BUN/Creatinine Ratio 26 Glucose 102 H Hemoglobin A1c 5.1 Calcium 9.2 Triglycerides 100 Cholesterol 126 LDL Cholesterol Direct 71 HDL Cholesterol 41 Cholesterol/HDL Ratio 3.07 Assessment and Plan Status post incarcerated hernia repair: Patient has not had a bowel movement since admission to acute care side. Is passing flatus. Stool softener started, tolerating GI soft foods without nausea or vomiting. Wound clean dry and intact without signs of infection. Abdominal binder on when up. No strenuous activity or lifting. Appreciate Dr. Black's input Hypertension, uncontrolled: Currently on valsartan and HCTZ. HCTZ increased, blood pressure slightly better, monitor for effect. Goal less than 140/80. Monitor and adjust medications as needed Hypokalemia: Improved, continue to monitor and replace as needed Morbid obesity: BMI 48.5 on admission to rehab. Counseled patient on weight loss which would help with both hernia and osteoarthritis of the hips. Discussed benefits of weight loss and availability of elective hip replacement. Suspected prior TIA: Patient previously started on aspirin and statin due to TIA symptoms in September 2021. Not currently taking aspirin but is taking brothers lfasalazine, will restart low dose ASA. Did not see a previous hemoglobin A1c. Hemoglobin A1c within normal limits at 5.1. LDL 71, HDL 41, total cholesterol 126, triglycerides 100. Constipation: Patient has started to have bowel movements. Appetite remains good. Stool softener and bowel medications made available. KUB NEG for ileus or obstruction but inspection of the images appears to show stool in the vault. 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 Has investigated bilateral hip arthroplasty in the past however has not moved forward with it. Continue pain control. On admission, discussed with patient benefits of weight loss and possible surgical intervention ADL dysfunction: OT will work on improving ability to perform ADLs (including assistive devices) to increase independence and decrease caregiver burden and improve functional transfers and mobility training. Difficulty walking: PT will work on gait training and proper use of assistive devices and advance as appropriate to use of stairs and outside ambulation on uneven surfaces. Unsteadiness on feet: PT will work on improving static and dynamic sitting and standing balance as well as proper use of assistive devices to decrease risk of falls. Abnormality of gait: PT will work to improve safety and efficiency of gait through neuromotor training and gait training along with instruction on proper use of assistive devices. Muscle weakness: PT & OT will work on strengthening exercises to improve functional strength including mixture of closed and open kinetic chain exercises. Debility: PT & OT will work on improving overall functional status to improve participation with ADLs, mobility and social involvement. Fatigue: PT & OT will work on improving endurance through aerobic exercises and therapeutic activity while monitoring patients tolerance for activity and vital signs as needed. DVT ppx: Lovenox Pain: Continue physical modalities in therapy and pain medications as needed to achieve functional pain control. Sleep: Monitor and address as needed. Bowel: Monitor and address as needed. Appetite: Monitor and address as needed. Discharge planning: Pending therapy progress and care plan meeting. Will continue discussion with therapy team, SW, patient and family. We will look to discharge next Sunday on 01/31. Patient has all medical equipment needed Restrictions/ Precautions: Falls, no strenuous lifting or activity, abdominal binder on when out of bed WB status: FWB Functional Hx: ADLs: Independent Cognition: Independent Mobility: Previously able to transfer independently but utilized wheelchair predominantly as mode of mobility due to bilateral hip OA Barriers to Discharge: Decreased mobility and ability to perform self care, balance deficits, weakness Estimated Length of Stay: 10 days Discharge Destination: Home with nephew
[2022-01-26] MEDS: diphenhydrAMINE 25 MG CAP PO PRN (21:12)
[2022-01-26] MEDS: ZOLPIDEM 5 MG TAB PO PRN (21:12)
[2022-01-27] MEDS: GABAPENTIN 300 MG CAP PO SCH ×3 (07:34→21:29)
[2022-01-27 07:56] LABS: Blood Urea Nitrogen 12 mg/dL (7-17); Calcium 9.2 mg/dL (8.4-10.2); Hemolysis Index 9
[2022-01-27 08:10] LABS: BUN/Creatinine Ratio 30
[2022-01-27] MEDS: sulfaSALAzine 500 MG TAB PO SCH ×2 (09:39→21:29)
[2022-01-27] MEDS: VALSARTAN 160MG TAB PO SCH (09:40)
[2022-01-27] MEDS: DOCUSATE SODIUM 100 MG CAP PO SCH (09:40)
[2022-01-27] MEDS: hydroCHLOROthiazide 12.5 MG CAP PO SCH (09:41)
[2022-01-27] MEDS: FAMOTIDINE 20 MG TAB PO SCH ×2 (09:41→21:29)
[2022-01-27] MEDS: ASPIRIN EC 81 MG TAB PO SCH (09:41)
[2022-01-27] MEDS: ENOXAPARIN 40 MG/0.4 ML INJ SUB-Q SCH (09:41)
[2022-01-27] MEDS: allopurinoL 100 MG TAB PO SCH (09:42)
[2022-01-27 10:36] LABS: Hematocrit 39.7 % (30.3-42.9); Hemoglobin 13.1 gm/dl (10.1-14.3); Mean Corpuscular HGB Conc 33 % (30-34); Mean Corpuscular Volume 94 fl (79-97); Platelet Count 167 K/mm3 (140-440); Red Blood Count 4.23 M/mm3 (3.65-5.03); Red Cell Distribution Width 14.4 % (13.2-15.2)
[2022-01-27] MEDS: traMADol 50 MG TAB PO PRN (11:42)
--- NOTE | 2022-01-27 13:35 | Progress Note ---
Subjective Date of service: 01/27/22 Principal diagnosis: Debility after hernia repair Interval history: 67-year-old female who presented to the hospital after 2 days of abdominal pain accompanied with nausea and vomiting and a history of ventral hernia and diverticulitis. Work-up in the ER resulted in impression of small bowel obstruction and surgery was consulted. CT abdomen was ordered, IV fluids and IV antibiotics were given and the patient had an NG tube placed on suction and was made n.p.o. in preparation for OR. On 01/16 she underwent diagnostic lap with lysis of adhesions, open reduction of incarcerated small bowel and primary repair of incisional hernia by Dr Black. Abdominal binder was placed (on when OOB), patient was advanced to clear liquid diet without complication and then advance to GI soft diet. No strenuous lifting/activity. Patient has not had BM since admission but is passing flatus, denies N/V over last couple of days. Patient has morbid obesity with BMI greater than 45, typically is wheelchair dependent for mobility due to severe b/l hip OA and is able to transfer independently. Currently the patient is experiencing deficits with ADLs and self-care as well as transfers. Patient was seen by therapy and determined to be a good rehab candidate for short-term stay in order to return the patient to her premorbid abilities to independently perform transfers and self-care. Interval History: Patient is participating in therapy and making reasonable progress. Taking rest breaks as needed. +BMs, no straining. Denies pain, palpitations, dyspnea, co ugh, N/V, or joint pain (occasional pain in the hips after therapy but doing much better than she was at home). In total, 38 minutes was invested in patient care today with greater than 50% of that time spent counseling and coordinating care concerning her recovery, discharge planning, therapy options as far as home health versus outpatient, improved mobility and weight loss in her likelihood for continuing on this path in order to be able to undergo VANDANA. Hypertension: Better controlled with increase of HCTZ, occasional elevation but overall much better control. Continue to monitor and look to improve control with dose adjustment again if needed Constipation: Patient continues to have normal bowel movements without straining. No nausea or vomiting. KUB did not show an ileus or obstruction. Appreciate input from Dr. Black Hypokalemia: Potassium decreased again, replace. We will continue to monitor and replace as needed. After discussing this again today with the patient she i nforms me that she was taken 10 mEq of potassium chloride at home, will start that on Sunday once we finished replacement to bring her back to normal over the weekend. Osteoarthritis of bilateral hips: Continue pain control, therapy as able to improve patient's mobility. Have already discussed with patient possibility of hip replacements and the need for weight loss. Patient making great progress with mobility and is able to walk more than she is walked since 2005 and she is very excited about this. States that she feels like she is lost a few pounds since being in the hospital and is excited to continue on this trend to possibly lead to hip replacements which will improve her mobility significantly. She does state that she has a rolling walker at home which she will break out again, therapy has been ordered with home health and they can assist her for assuring that the walker set to the right height. Status post incarcerated hernia repair: Clean dry and intact without any signs of dehiscence or wound infection. Continue utilizing the abdominal binder when out of bed. ADL and mobility dysfunction: Working with therapy to improve ability to perform ADLs and self-care and mobilize. Getting close to baseline for transfers and is able to ambulate for short distances Debility: Continue to work with therapy to improve strength All records, vitals, labs and medications were reviewed. No other issues per patient, nursing or therapy. Objective - Exam Narrative Exam: MUSCULOSKELETAL SPECIALTY EXAM CONSTITUTIONAL: Well developed, well nourished, appropriately groomed, obese RESPIRATORY: Clear to auscultation bilaterally, no increased work of breathing CARDIOVASCULAR: Regular Rate/ Rhythm, no swelling, edema or tenderness in BUE or BLE. All extremities warm. GI: + bowel sounds, soft, very little TTP, but appropriate for surgical intervention. INTEGUMENTARY: Normal, no lesion, rash, masses or bruising noted in extremities. Surgical incision clean dry and intact with surgical glue MUSCULOSKELETAL: BUE and BLE normal without defect, crepitus, subluxation, effusion, arthritic changes or TTP. BUE 4+/5, good ROM, with normal tone. BLE 4/5 decreased ROM, with normal tone, limited by pain at hip joints NEURO: Sensation intact in all extremities. No tremor noted in 4 extremities. POSTURE and GAIT: Walking short distances but this causes pain PSYCH: Alert, oriented x3, affect appears normal. Insight appears intact. - Constitutional Vitals: Vital Signs - 12hr 01/27/22 09:30 O2 Sat by Pulse 98 Oximetry - Allied health notes Allied health notes reviewed: nursing, PT, OT FIMS assessment as documented by PT/OT/ST: Locomotion- walk/wheelchair Ambulation Distance 10 - Labs CBC & Chem 7: 01/27/22 07:06 01/27/22 07:06 Labs: Laboratory Results - last 72 hr 01/27/22 01/27/22 07:06 07:06 WBC 4.6 RBC 4.23 Hgb 13.1 Hct 39.7 MCV 94 MCH 31 MCHC 33 RDW 14.4 Plt Count 167 Sodium 141 Potassium 3.3 L Chloride 102.3 Carbon Dioxide 27 Anion Gap 15 BUN 12 Creatinine 0.4 L Estimated GFR > 60 BUN/Creatinine Ratio 30 Glucose 113 H Calcium 9.2 Assessment and Plan Status post incarcerated hernia repair: Patient has not had a bowel movement since admission to acute care side. Is passing flatus. Stool softener started, tolerating GI soft foods without nausea or vomiting. Wound clean dry and intact without signs of infection. Abdominal binder on when up. No strenuous activity or lifting. Appreciate Dr. Black's input Hypertension, uncontrolled: Currently on valsartan and HCTZ. HCTZ increased, blood pressure slightly better, monitor for effect. Goal less than 140/80. Monitor and adjust medications as needed Hypokalemia: Decreased again, continue to monitor and replace as needed, will place in order to restart home dose of 10 mEq on Sunday (patient told me she was started on this recently at home, was not relayed to me with the transfer). Morbid obesity: BMI 48.5 on admission to rehab. Counseled patient on weight loss which would help with both hernia and osteoarthritis of the hips. Discussed benefits of weight loss and availability of elective hip replacement. Suspected prior TIA: Patient previously started on aspirin and statin due to TIA symptoms in September 2021. Not currently taking aspirin but is taking sulfasalazine, will restart low dose ASA. Did not see a previous hemoglobin A1c. Hemoglobin A1c within normal limits at 5.1. LDL 71, HDL 41, total cholesterol 126, triglycerides 100. Constipation: Patient having bowel movements. Appetite remains good. Stool softener and bowel medications made available. KUB NEG for ileus or obstruction but inspection of the images appears to show stool in the vault. 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 Has investigated bilateral hip arthroplasty in the past however has not moved forward with it. Continue pain control. On admission, discussed with patient benefits of weight loss and possible surgical intervention ADL dysfunction: OT will work on improving ability to perform ADLs (including a ssistive devices) to increase independence and decrease caregiver burden and improve functional transfers and mobility training. Difficulty walking: PT will work on gait training and proper use of assistive devices and advance as appropriate to use of stairs and outside ambulation on uneven surfaces. Unsteadiness on feet: PT will work on improving static and dynamic sitting and standing balance as well as proper use of assistive devices to decrease risk of falls. Abnormality of gait: PT will work to improve safety and efficiency of gait through neuromotor training and gait training along with instruction on proper use of assistive devices. Muscle weakness: PT & OT will work on strengthening exercises to improve functional strength including mixture of closed and open kinetic chain exer cises. Debility: PT & OT will work on improving overall functional status to improve participation with ADLs, mobility and social involvement. Fatigue: PT & OT will work on improving endurance through aerobic exercises and therapeutic activity while monitoring patients tolerance for activity and vital signs as needed. DVT ppx: Lovenox Pain: Continue physical modalities in therapy and pain medications as needed to achieve functional pain control. Sleep: Monitor and address as needed. Bowel: Monitor and address as needed. Appetite: Monitor and address as needed. Discharge planning: Pending therapy progress and care plan meeting. Will continue discussion with therapy team, SW, patient and family. We will look to discharge next Sunday on 01/31. Patient has all medical equipment needed, home health orders placed Restrictions/ Precautions: Falls, no strenuous lifting or activity, abdominal binder on when out of bed WB status: FWB Functional Hx: ADLs: Independent Cognition: Independent Mobility: Previously able to transfer independently but utilized wheelchair predominantly as mode of mobility due to bilateral hip OA Barriers to Discharge: Decreased mobility and ability to perform self care, balance deficits, weakness Estimated Length of Stay: 10 days Discharge Destination: Home with nephew
[2022-01-27] MEDS: POTASSIUM CHLORIDE ER 20 MEQ TAB PO SCH (17:01)
[2022-01-27] MEDS: diphenhydrAMINE 25 MG CAP PO PRN (21:31)
[2022-01-27] MEDS: ZOLPIDEM 5 MG TAB PO PRN (21:31)
[2022-01-28] MEDS: GABAPENTIN 300 MG CAP PO SCH ×3 (06:42→21:35)
[2022-01-28] MEDS: ASPIRIN EC 81 MG TAB PO SCH (09:37)
[2022-01-28] MEDS: ENOXAPARIN 40 MG/0.4 ML INJ SUB-Q SCH (09:37)
[2022-01-28] MEDS: hydroCHLOROthiazide 12.5 MG CAP PO SCH (09:37)
[2022-01-28] MEDS: traMADol 50 MG TAB PO PRN ×2 (09:38→21:34)
[2022-01-28] MEDS: POTASSIUM CHLORIDE ER 20 MEQ TAB PO SCH (09:38)
[2022-01-28] MEDS: FAMOTIDINE 20 MG TAB PO SCH ×2 (09:38→21:35)
[2022-01-28] MEDS: allopurinoL 100 MG TAB PO SCH (09:38)
[2022-01-28] MEDS: DOCUSATE SODIUM 100 MG CAP PO SCH (09:38)
[2022-01-28] MEDS: VALSARTAN 160MG TAB PO SCH (09:39)
[2022-01-28] MEDS: sulfaSALAzine 500 MG TAB PO SCH ×2 (09:39→21:35)
[2022-01-28 11:15] LABS: Blood Urea Nitrogen 12 mg/dL (7-17); Calcium 9.2 mg/dL (8.4-10.2); Hemolysis Index 0
[2022-01-28 11:16] LABS: BUN/Creatinine Ratio 24
[2022-01-28] MEDS: ZOLPIDEM 5 MG TAB PO PRN (21:35)
[2022-01-28] MEDS: diphenhydrAMINE 25 MG CAP PO PRN (21:35)
[2022-01-29] MEDS: GABAPENTIN 300 MG CAP PO SCH ×3 (06:14→21:26)
[2022-01-29] MEDS: sulfaSALAzine 500 MG TAB PO SCH ×2 (09:42→21:26)
[2022-01-29] MEDS: ASPIRIN EC 81 MG TAB PO SCH (09:42)
[2022-01-29] MEDS: traMADol 50 MG TAB PO PRN (09:42)
[2022-01-29] MEDS: hydroCHLOROthiazide 12.5 MG CAP PO SCH (09:42)
[2022-01-29] MEDS: ENOXAPARIN 40 MG/0.4 ML INJ SUB-Q SCH (09:42)
[2022-01-29] MEDS: allopurinoL 100 MG TAB PO SCH (09:43)
[2022-01-29] MEDS: POTASSIUM CHLORIDE ER 20 MEQ TAB PO SCH (09:43)
[2022-01-29] MEDS: VALSARTAN 160MG TAB PO SCH (09:43)
[2022-01-29] MEDS: DOCUSATE SODIUM 100 MG CAP PO SCH (09:43)
[2022-01-29] MEDS: FAMOTIDINE 20 MG TAB PO SCH ×2 (09:43→21:26)
[2022-01-29] MEDS: ZOLPIDEM 5 MG TAB PO PRN (21:26)
[2022-01-29] MEDS: diphenhydrAMINE 25 MG CAP PO PRN (21:26)
[2022-01-30] MEDS: GABAPENTIN 300 MG CAP PO SCH ×3 (06:38→21:28)
[2022-01-30] MEDS: VALSARTAN 160MG TAB PO SCH (10:19)
[2022-01-30] MEDS: DOCUSATE SODIUM 100 MG CAP PO SCH (10:19)
[2022-01-30] MEDS: hydroCHLOROthiazide 12.5 MG CAP PO SCH (10:19)
[2022-01-30] MEDS: ASPIRIN EC 81 MG TAB PO SCH (10:19)
[2022-01-30] MEDS: sulfaSALAzine 500 MG TAB PO SCH ×2 (10:19→21:28)
[2022-01-30] MEDS: ENOXAPARIN 40 MG/0.4 ML INJ SUB-Q SCH (10:19)
[2022-01-30] MEDS: POTASSIUM CHLORIDE ER 20 MEQ TAB PO SCH (10:20)
[2022-01-30] MEDS: allopurinoL 100 MG TAB PO SCH (10:20)
[2022-01-30] MEDS: FAMOTIDINE 20 MG TAB PO SCH ×2 (10:20→21:28)
[2022-01-30] MEDS: diphenhydrAMINE 25 MG CAP PO PRN ×2 (10:35→18:49)
[2022-01-30 10:59] LABS: Blood Urea Nitrogen 11 mg/dL (7-17); Calcium 9.3 mg/dL (8.4-10.2); Hemolysis Index 2
[2022-01-30 11:04] LABS: BUN/Creatinine Ratio 28
--- NOTE | 2022-01-30 12:40 | Progress Note ---
Subjective Date of service: 01/30/22 Principal diagnosis: Debility after hernia repair Interval history: 67-year-old female who presented to the hospital after 2 days of abdominal pain accompanied with nausea and vomiting and a history of ventral hernia and diverticulitis. Work-up in the ER resulted in impression of small bowel obstruction and surgery was consulted. CT abdomen was ordered, IV fluids and IV antibiotics were given and the patient had an NG tube placed on suction and was made n.p.o. in preparation for OR. On 01/16 she underwent diagnostic lap with lysis of adhesions, open reduction of incarcerated small bowel and primary repair of incisional hernia by Dr Black. Abdominal binder was placed (on when OOB), patient was advanced to clear liquid diet without complication and then advance to GI soft diet. No strenuous lifting/activity. Patient has not had BM since admission but is passing flatus, denies N/V over last couple of days. Patient has morbid obesity with BMI greater than 45, typically is wheelchair dependent for mobility due to severe b/l hip OA and is able to transfer independently. Currently the patient is experiencing deficits with ADLs and self-care as well as transfers. Patient was seen by therapy and determined to be a good rehab candidate for short-term stay in order to return the patient to her premorbid abilities to independently perform transfers and self-care. Interval History: Patient is participating in therapy and making reasonable progress. Taking rest breaks as needed. -BM today. Denies pain, palpitations, dyspnea, cough, N/V, or joint pain (occasional pain in the hips after therapy but doing much better than she was at home). Patient for me today that her primary care physician is Dr. Wendy Manning Hypertension: Better controlled with increase of HCTZ, occasional elevation but overall much better control. Continue to monitor and adjust as needed. Patient prefers to utilize a combination pill at home, will include that for discharge Constipation: Patient having normal bowel movements without straining. No nausea or vomiting. KUB did not show an ileus or obstruction. Appreciate input from Dr. Black Hypokalemia: Replacing and today's potassium is slightly decreased at 3.4, will give a second dose today and restart her daily replacement tomorrow after discharge. We will continue to monitor and replace as needed. Osteoarthritis of bilateral hips: Continue pain control, therapy as able to improve patient's mobility. Have already discussed with patient possibility of hip replacements and the need for weight loss. Patient making great progress with mobility and is able to walk more than she is walked since 2005 and she is very excited about this. States that she feels like she is lost a few pounds since being in the hospital and is excited to continue on this trend to possibly lead to hip replacements which will improve her mobility significantly. She does state that she has a rolling walker at home which she will break out again, therapy has been ordered with home health and they can assist her for assuring that the walker set to the right height. Patient is walking approximately 25 to 30 feet multiple times during the session which is much better than before. Status post incarcerated hernia repair: Clean dry and intact without any signs of dehiscence or wound infection. Continue utilizing the abdominal binder when out of bed. ADL and mobility dysfunction: Working with therapy to improve ability to perform ADLs and self-care and mobilize. Getting close to baseline for transfers and is able to ambulate for short distances Debility: Continue to work with therapy to improve strength All records, vitals, labs and medications were reviewed. No other issues per patient, nursing or therapy. Objective - Exam Narrative Exam: MUSCULOSKELETAL SPECIALTY EXAM CONSTITUTIONAL: Well developed, well nourished, appropriately groomed, obese RESPIRATORY: Clear to auscultation bilaterally, no increased work of breathing CARDIOVASCULAR: Regular Rate/ Rhythm, no swelling, edema or tenderness in BUE or BLE. All extremities warm. GI: + bowel sounds, soft, very little TTP, but appropriate for surgical in tervention. INTEGUMENTARY: Normal, no lesion, rash, masses or bruising noted in extremities. Surgical incision clean dry and intact with surgical glue MUSCULOSKELETAL: BUE and BLE normal without defect, crepitus, subluxation, effusion, arthritic changes or TTP. BUE 4+/5, good ROM, with normal tone. BLE 4/5 decreased ROM, with normal tone, limited by pain at hip joints NEURO: Sensation intact in all extremities. No tremor noted in 4 extremities. POSTURE and GAIT: Walking short distances but this causes pain PSYCH: Alert, oriented x3, affect appears normal. Insight appears intact. - Constitutional Vitals: Vital Signs - 12hr 01/30/22 01/30/22 01/30/22 01:18 06:41 10:00 Temperature 98.8 F 97.5 F L Pulse Rate 57 L 60 Respiratory 16 16 Rate Blood Pressure 141/60 152/75 O2 Sat by Pulse 96 96 98 Oximetry - Allied health notes Allied health notes reviewed: nursing, PT, OT FIMS assessment as documented by PT/OT/ST: Locomotion- walk/wheelchair Ambulation Distance 10 - Labs CBC & Chem 7: 01/27/22 07:06 01/30/22 09:36 Labs: Laboratory Results - last 72 hr 01/28/22 01/30/22 09:11 09:36 Sodium 142 144 Potassium 3.3 L 3.4 L Chloride 100.3 103.0 Carbon Dioxide 27 27 Anion Gap 18 17 BUN 12 11 Creatinine 0.5 L 0.4 L Estimated GFR > 60 > 60 BUN/Creatinine Ratio 24 28 Glucose 133 H 142 H Calcium 9.2 9.3 Assessment and Plan Status post incarcerated hernia repair: Patient has not had a bowel movement since admission to acute care side. Is passing flatus. Stool softener started, tolerating GI soft foods without nausea or vomiting. Wound clean dry and intact without signs of infection. Abdominal binder on when up. No strenuous activity or lifting. Appreciate Dr. Black's input. Patient states that she was told a second abdominal binder would be provided, have asked nursing to provide this. Hypertension, uncontrolled: Currently on valsartan and HCTZ. HCTZ increased, blood pressure slightly better, monitor for effect. Goal less than 140/80. Monitor and adjust medications as needed. Combination pill will be ordered at discharge Hypokalemia: Decreased again, continue to monitor and replace as needed, will place in order to restart home dose of 10 mEq on Sunday (patient told me she was started on this recently at home, was not relayed to me with the transfer). Morbid obesity: BMI 48.5 on admission to rehab. Counseled patient on weight loss which would help with both hernia and osteoarthritis of the hips. Discussed benefits of weight loss and availability of elective hip replacement. Suspected prior TIA: Patient previously started on aspirin and statin due to TIA symptoms in September 2021. Not currently taking aspirin but is taking sulfasalazine, will restart low dose ASA. Did not see a previous hemoglobin A1c. Hemoglobin A1c within normal limits at 5.1. LDL 71, HDL 41, total cholesterol 126, triglycerides 100. Constipation: Patient having bowel movements. Appetite remains good. Stool sof tener and bowel medications made available. KUB NEG for ileus or obstruction but inspection of the images appears to show stool in the vault. 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 Has investigated bilateral hip arthroplasty in the past however has not moved forward with it. Continue pain control. On admission, discussed with patient benefits of weight loss and possible surgical intervention ADL dysfunction: OT will work on improving ability to perform ADLs (including assistive devices) to increase independence and decrease caregiver burden and improve functional transfers and mobility training. Difficulty walking: PT will work on gait training and proper use of assistive devices and advance as appropriate to use of stairs and outside ambulation on uneven surfaces. Unsteadiness on feet: PT will work on improving static and dynamic sitting and standing balance as well as proper use of assistive devices to decrease risk of falls. Abnormality of gait: PT will work to improve safety and efficiency of gait through neuromotor training and gait training along with instruction on proper use of assistive devices. Muscle weakness: PT & OT will work on strengthening exercises to improve functional strength including mixture of closed and open kinetic chain exercises. Debility: PT & OT will work on improving overall functional status to improve participation with ADLs, mobility and social involvement. Fatigue: PT & OT will work on improving endurance through aerobic exercises and therapeutic activity while monitoring patients tolerance for activity and vital signs as needed. DVT ppx: Lovenox Pain: Continue physical modalities in therapy and pain medications as needed to achieve functional pain control. Sleep: Monitor and address as needed. Bowel: Monitor and address as needed. Appetite: Monitor and address as needed. Discharge planning: Pending therapy progress and care plan meeting. Will continue discussion with therapy team, SW, patient and family. We will look to discharge next Sunday on 01/31. Patient has all medical equipment needed, home health orders placed Restrictions/ Precautions: Falls, no strenuous lifting or activity, abdominal binder on when out of bed WB status: FWB Functional Hx: ADLs: Independent Cognition: Independent Mobility: Previously able to transfer independently but utilized wheelchair predominantly as mode of mobility due to bilateral hip OA Barriers to Discharge: Decreased mobility and ability to perform self care, balance deficits, weakness Estimated Length of Stay: 10 days Discharge Destination: Home with nephew
[2022-01-30] MEDS ORDERED: POTASSIUM CHLORIDE ER 20 MEQ TAB PO ONE (14:00)
[2022-01-30] MEDS: ZOLPIDEM 5 MG TAB PO PRN (21:28)
[2022-01-30] MEDS: traMADol 50 MG TAB PO PRN (22:57)
[2022-01-31] MEDS: diphenhydrAMINE 25 MG CAP PO PRN (06:51)
[2022-01-31] MEDS: GABAPENTIN 300 MG CAP PO SCH (06:51)
[2022-01-31] MEDS: sulfaSALAzine 500 MG TAB PO SCH (10:11)
[2022-01-31] MEDS: DOCUSATE SODIUM 100 MG CAP PO SCH (10:11)
[2022-01-31] MEDS: allopurinoL 100 MG TAB PO SCH (10:12)
[2022-01-31] MEDS: ENOXAPARIN 40 MG/0.4 ML INJ SUB-Q SCH (10:12)
[2022-01-31] MEDS: FAMOTIDINE 20 MG TAB PO SCH (10:12)
[2022-01-31] MEDS: POTASSIUM CHLORIDE ER 20 MEQ TAB PO SCH (10:12)
[2022-01-31] MEDS: hydroCHLOROthiazide 12.5 MG CAP PO SCH (10:13)
[2022-01-31] MEDS: ASPIRIN EC 81 MG TAB PO SCH (10:14)
[2022-01-31] MEDS: VALSARTAN 160MG TAB PO SCH (10:20)
--- NOTE | 2022-01-31 11:33 | Discharge Summary ---
Providers - Providers Date of Admission: 01/20/22 21:44 Date of discharge: 01/31/22 Attending physician: MALLORY SORIANO III, MD 01/20/22 17:29 Occupational Therapy Evaluate and Treat [CONS] Routine Comment: Reason For Exam: ADL dysfunction Physical Therapy Evaluation and Treat [CONS] Routine Comment: Reason For Exam: Mobility Dysfunction 01/20/22 17:53 Consult to Case Management [CONS] Routine Services Needed at Discharge: Home Health Services Notified:: CASE MANAGEMENT 01/20/22 18:02 Consult to Case Management [CONS] Routine Services Needed at Discharge: Home Health Services Notified:: CASE MANAGEMENT Consult to Dietitian/Nutrition [CONS] Routine Physician Instructions: Reason For Exam: Reason for Consult: Diet education Primary care physician: Lu Goldberg MD Hospitalization Reason for admission: Debility after hernia repair Condition: Good Hospital course: 67-year-old female who presented to the hospital after 2 days of abdominal pain accompanied with nausea and vomiting and a history of ventral hernia and diverticulitis. Work-up in the ER resulted in impression of small bowel obstruction and surgery was consulted. CT abdomen was ordered, IV fluids and IV antibiotics were given and the patient had an NG tube placed on suction and was made n.p.o. in preparation for OR. On 01/16 she underwent diagnostic lap with lysis of adhesions, open reduction of incarcerated small bowel and primary repair of incisional hernia by Dr Castillo. Abdominal binder was placed (on when OOB), patient was advanced to clear liquid diet without complication and then advance to GI soft diet. No strenuous lifting/activity. Patient has not had BM since admission but is passing flatus, denies N/V over last couple of days. Patient has morbid obesity with BMI greater than 45, typically is wheelchair dependent for mobility due to severe b/l hip OA and is able to transfer independently. Currently the patient is experiencing deficits with ADLs and self-care as well as transfers. Patient was seen by therapy and determined to be a good rehab candidate for short-term stay in order to return the patient to her premorbid abilities to independently perform transfers and self-care. Status post incarcerated hernia repair: Patient did not have a bowel movement for several days after surgery. Corrected with enema and suppository. Stool softener started, tolerating GI soft foods without nausea or vomiting. Wound clean dry and intact without signs of infection. Abdominal binder on when up. No strenuous activity or lifting. Appreciate Dr. Castillo's input. Patient states that she was told a second abdominal binder would be provided, have asked nursing to provide this. Hypertension, controlled now: Currently on valsartan and HCTZ. HCTZ increased, blood pressure better, monitor for effect. Goal less than 140/80. Monitor and adjust medications as needed. Combination pill will be ordered at discharge Hypokalemia: Replaced, will place order to restart home dose of 10 mEq on Sunday (patient told me she was started on this recently at home, was not relayed to me with the transfer). Morbid obesity: BMI 48.5 on admission to rehab. Counseled patient on weight loss which would help with both hernia and osteoarthritis of the hips. Discussed benefits of weight loss and availability of elective hip replacement. Suspected prior TIA: Patient previously started on aspirin and statin due to TIA symptoms in September 2021. Not currently taking aspirin but is taking sulfasalazine, will restart low dose ASA. Did not see a previous hemoglobin A1c. Hemoglobin A1c within normal limits at 5.1. LDL 71, HDL 41, total cholesterol 126, triglycerides 100. Constipation: Patient having bowel movements. Appetite remains good. Stool softener and bowel medications made available. KUB NEG for ileus or obstruction but inspection of the images appears to show stool in the vault. 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 Has investigated bilateral hip arthroplasty in the past however has not moved forward with it. Continue pain control. On admission, discussed with patient benefits of weight loss and possible surgical intervention ADL dysfunction: OT will work on improving ability to perform ADLs (including assistive devices) to increase independence and decrease caregiver burden and improve functional transfers and mobility training. Difficulty walking: PT will work on gait training and proper use of assistive devices and advance as appropriate to use of stairs and outside ambulation on uneven surfaces. Disposition: HOME HEALTH CARE SERVICE Final Discharge Diagnosis (Prints w/discharge instructions): Status post incarcerated hernia with repair, hypertension, hypokalemia, morbid obesity, previous TIA, constipation, osteoarthritis bilateral hips Time spent for discharge: >33 mins Core Measure Documentation - Palliative Care Palliative Care/ Comfort Measures: Not Applicable - Core Measures Any of the following diagnoses?: none Exam - Physical Exam Narrative exam: MUSCULOSKELETAL SPECIALTY EXAM CONSTITUTIONAL: Well developed, well nourished, appropriately groomed, obese RESPIRATORY: Clear to auscultation bilaterally, no increased work of breathing CARDIOVASCULAR: Regular Rate/ Rhythm, no swelling, edema or tenderness in BUE or BLE. All extremities warm. GI: + bowel sounds, soft, very little TTP, but appropriate for surgical intervention. INTEGUMENTARY: Normal, no lesion, rash, masses or bruising noted in extremities. Surgical incision clean dry and intact with surgical glue MUSCULOSKELETAL: BUE and BLE normal without defect, crepitus, subluxation, effusion, arthritic changes or TTP. BUE 4+/5, good ROM, with normal tone. BLE 4/5 decreased ROM, with normal tone, limited by pain at hip joints NEURO: Sensation intact in all extremities. No tremor noted in 4 extremities. POSTURE and GAIT: Walking short distances but this causes pain PSYCH: Alert, oriented x3, affect appears normal. Insight appears intact. - Constitutional Vitals: Temp Pulse Resp BP Pulse Ox 98.4 F 70 18 118/68 97 01/31/22 07:28 01/31/22 10:20 01/31/22 07:28 01/31/22 10:20 01/31/22 07:28 Plan Activity: fall precautions, other (Abdominal binder on when up, no strenuous lifting/activity until cleared by surgeon) Diet: other (GI Soft) Wound: open to air Special Instructions: no heavy lifting, physical therapy, occupational therapy, home health RN Care Plan Goals: Valsartan/HCTZ was changed with an increase in the HCTZ component for improved blood pressure control. Patient instructed to return to the ER for any episodes of chest pain, fever greater than 101 or rectal bleeding. Should continue taking stool softeners to ensure ease of bowel movements over the next several weeks. Follow-up with surgeon. Follow up with: LU GOLDBERG MD [Staff Physician] - 7 Days TOMER CASTILLO DO [Staff Physician] - 7 Days Prescriptions: Zolpidem [Ambien] 5 mg PO QHS PRN #10 tablet PRN Reason: Sleep AtorvaSTATin [Lipitor] 40 mg PO QHS #30 tablet sulfaSALAzine [Azulfidine] 500 mg PO Q12HR #60 tablet Docusate Sodium [Colace CAP] 100 mg PO DAILY #30 capsule Gabapentin 300 mg PO Q8HR #90 capsule Aspirin EC [Halfprin EC] 81 mg PO QDAY #30 tablet polyethylene glycoL 3350 [Miralax 3350] 17 gm PO QDAY PRN 10 Days #10 powd.pack PRN Reason: Constipation Famotidine [Pepcid] 20 mg PO DAILY #30 tablet traMADoL [Ultram 50 MG tab] 50 mg PO Q12HR PRN #15 tablet PRN Reason: Pain, Moderate (4-6) Valsartan/Hydrochlorothiazide [Valsartan-Hctz 160-25 mg Tab] 1 each PO DAILY #30 tab allopurinoL [Zyloprim] 100 mg PO QDAY #30 tablet
[2022-01-31 13:57] VITALS: BP 139/62
== END 2022-01-31 15:00 | disposition home or self-care (01) | DRG 948 ==
LOC: 4A 14:58 → UNDOADMIN 14:58 → 4A 21:44
PROVIDERS: ADMIT Physical Medicine & Rehabilitation; ATTEND Physical Medicine & Rehabilitation
DX: R53.81 Other malaise (principal); Z68.42 Body mass index [BMI] 45.0-49.9, adult; E66.01 Morbid (severe) obesity due to excess calories; I10 Essential (primary) hypertension; E87.6 Hypokalemia; K59.00 Constipation, unspecified; M16.0 Bilateral primary osteoarthritis of hip; E78.5 Hyperlipidemia, unspecified; Z83.3 Family history of diabetes mellitus; Z88.0 Allergy status to penicillin; Z88.8 Allergy status to other drugs, medicaments and biological substances; Z82.49 Family history of ischemic heart disease and other diseases of the circulatory system
CPT/HCPCS: 36415; 74018; 80048; 80053; 80061; 83036; 85025; 85027; 94640; G0378; J1650